=== PATIENT | male | born 1945 | race Caucasian/White ===

== ENCOUNTER 2019-02-19 12:11 | Inpatient (IN) | payer MEDICARE, SELFPAY ==
[2019-02-19] MEDS ORDERED: Metoclopramide 10 MG/2 ML SDV IVPUSH ONE (12:42)
[2019-02-19] MEDS ORDERED: Sodium Chloride 0.9% 1,000 ML IV SCH ×2 (12:45→15:20)
--- NOTE | 2019-02-19 12:47 | EDM.PDOC ---
ED HPI GENERAL MEDICAL PROBLEM - General Chief Complaint: Gastrointestinal Problem Stated Complaint: FLU SX Time Seen by Provider: 02/19/19 12:39 Source of Information: Reports: Patient, Family (son) History Limitations: Reports: No Limitations - History of Present Illness INITIAL COMMENTS - FREE TEXT/NARRATIVE: 73-year-old male presents to the ED with a ten-day history of fever chills and flulike symptoms. He states the last 3 days he's had intermittent nausea and vomiting and can not keep anything down. If he does eat to get cramps and loose watery yellow diarrhea. The diarrhea has been present for about 10 days. He denies being on any antibiotics in the last month. He's had chills but no receptive go put a sweater on. Air conditioners been off even in warm days over the last 10 days according to the son. He denies any genitourinary complaints. He still smokes a pack of cigarettes or more and always has a bit of a chronic cough. States cough is no worse than normal. Denies any pleuritic chest pain. He used to be diabetic but stopped medications about a year ago after sugars improved with weight loss. He estimates that he's lost about 10 pounds of weight in the last 10 days due to current illness. Concern that he may have picked up a bacterial infection from food causing his stomach and diarrhea problems. He has no past history of surgery. Has cataracts but can't have them out until he gets his abdominal aortic aneurysm repaired and his blood sugars under control. He hasn't checked his sugars at all. Currently not taking any medications. Onset: Unknown/Unsure (Hasn't been well for the last 10 days.) Onset Date: 02/09/19 Duration: Day(s):, Getting Worse Location: Reports: Abdomen (Intermittent nausea and vomiting of bilious material and loose yellow watery diarrhea stools if he eats.) Quality: Reports: Other Severity: Moderate (Fever and chills.) Improves with: Reports: None Worsens with: Reports: Eating Context: Denies: Activity, Exercise, Lifting, Sick Contact, Trauma, Other Associated Symptoms: Reports: Cough, cough w sputum, Fever/Chills, Headaches ( Initially had headaches at onset of illness but they come and go. Often wakes up with a headache in the morning and then gets better.), Loss of Appetite, Malaise, Nausea/Vomiting, Weakness (Getting worse over the last 3-4 days), Other (Lightheadedness and). Denies: Confusion (Chronic cough from smoking cigarettes.), Chest Pain, Diaphoresis, Rash, Seizure, Shortness of Breath, Syncope Treatments APPLICATION ADMINISTRATOR: Reports: Other (see below) (None.) - Related Data Allergies Allergy/AdvReac Type Severity Reaction Status Date / Time No Known Allergies Allergy Verified 02/19/19 12:21 Home Meds: Home Meds . [No Known Home Meds] 07/31/15 [History] Past Medical History - Past Health History Medical/Surgical History: Denies Medical/Surgical History HEENT History: Reports: Impaired Vision Cardiovascular History: Reports: Aneurysm (Has a known abdominal aortic aneurysm. Apparently to get this fixed. This suggests that it is over 5 cm in size.), Other (See Below) (Old notes suggest he has had a non-STEMI [place] in the past.) Respiratory History: Reports: COPD Endocrine/Metabolic History: Reports: Diabetes, Type II Social & Family History - Family History Family Medical History: Unobtainable - Tobacco Use Smoking Status *Q: Current Every Day Smoker Tobacco Use Within Last Twelve Months: Cigarettes (Usually a pack per day.) Years of Tobacco use: 55 - Living Situation & Occupation Living situation: Reports: (Self-employed) Occupation: Employed ED ROS GENERAL - Review of Systems Review Of Systems: See Below Constitutional: Reports: Fever, Chills, Malaise, Weakness, Fatigue, Decreased Appetite (10 pound weight loss in the last 10 days), Weight Loss. Denies: Night Sweats, Diaphoresis HEENT: Reports: Glasses, Hearing Loss (Mild), Other (Known cataract in the left eye.) Respiratory: Reports: Shortness of Breath, Wheezing, Cough, Sputum (Smoker's cough but no worse than normal). Denies: Pleuritic Chest Pain, Hemoptysis ( sputum. If he produces any) Cardiovascular: Reports: Blood Pressure Problem, Dyspnea on Exertion, Lightheadedness. Denies: No Symptoms, Chest Pain, Claudication, Edema, Orthopnea, Palpitations (Chronically) Endocrine: Reports: Fatigue, Other (Unsure what his glucose is doing as he hasn' t checked his sugars for a long time. Used to be a diabetic) GI/Abdominal: Reports: Abdominal Pain, Diarrhea (Mild epigastric abdominal pain. ), Decreased Appetite, Nausea, Vomiting. Denies: Hematemesis (Intractable nausea and vomiting of bilious emesis.), Hematochezia : Reports: Frequency, Other (Nocturia 2 or 3.) Musculoskeletal: Reports: Neck Pain, Shoulder Pain, Back Pain Skin: Reports: No Symptoms, Other (Denies any recent skin infections or ulcerations.) Neurological: Reports: No Symptoms Psychiatric: Reports: No Symptoms Hematologic/Lymphatic: Reports: No Symptoms Immunologic: Reports: No Symptoms ED EXAM, GI/ABD - Physical Exam Exam: See Below Exam Limited By: No Limitations General Appearance: Alert, WD/WN, No Apparent Distress, Anxious (19 to be urine unwilling to stay in the hospital), Other (Patient was definitely warm to palpation. Nurses recorded temperature 37 but he is much warmer than this.) Eyes: Bilateral: Normal Appearance (No scleral icterus) Throat/Mouth: Normal Oropharynx (Red oropharynx from cigarette smoking), Other ( Tongue is very dry and coated.). No: Normal Teeth, Normal Gums Head: Atraumatic, Normocephalic ( or exudate) Neck: Limited Range of Motion, Tender Lateral (Decreased lateral rotation and flexion due to arthritic changes). No: Full Range of Motion, Carotid Bruit Respiratory/Chest: No Accessory Muscle Use, Respiratory Distress (Tachypnea at rest 32/m with sats of 98% on room air.Revisit due to fever.), Decreased Breath Sounds (Decreased breath sounds lower 25% lung andrews bilaterally.), Wheezing. No: Crackles, Rales, Rhonchi (Occasional expiratory wheeze) Cardiovascular: Regular Rate, Rhythm, No Edema, No Gallop, No Murmur, No Rub. No: Normal Peripheral Pulses GI/Abdominal Exam: Normal Bowel Sounds, Soft, Non-Tender, No Organomegaly, No Mass, Pelvis Stable, Other (Palpable abdominal abdominal aortic aneurysm). 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 No: Normal Range of Motion Neurological: Alert, Oriented, CN II-XII Intact, Normal Cognition Psychiatric: Normal Mood, Anxious, Other (Fearful of having to stay in the hospital.) Skin Exam: Warm, Dry, Intact, Normal Color, No Rash, Other (I could not identify any integument source for bacteremia.) EKG INTERPRETATION EKG Date: 02/19/19 Time: 13:06 Rhythm: NSR Rate (Beats/Min): 81 [place]: LAD-Left [place] Deviation (Mild left axis deviation -5.) P-Wave: Present (Borderline first-degree AV block) QRS: Other (Decreased voltage limb leads compose COPD.) ST-T: Normal QT: Normal EKG Interpretation Comments: Borderline ECG Course - Vital Signs Last Recorded V/S: Last Vital Signs Temp 37.8 C 02/19/19 14:50 Pulse 72 02/19/19 14:50 Resp 34 H 02/19/19 14:50 BP 115/66 02/19/19 14:50 Pulse Ox 94 L 02/19/19 14:50 Orthostatic Blood Pressure [ 102/66 Standing] Orthostatic Blood Pressure [ 124/73 Sitting] Orthostatic Blood Pressure [ 134/103 Supine] - Orders/Labs/Meds Orders: Active Orders 24 hr Category Date Time Status Blood Glucose Check, Bedside [RC] ONETIME Care 02/19/19 12:40 Active Blood Glucose Check, Bedside [RC] ONETIME Care 02/19/19 17:04 Active EKG Documentation Completion [RC] STAT Care 02/19/19 12:40 Active Chest 1V Frontal [CR] Stat Exams 02/19/19 12:40 Taken CULTURE BLOOD [BC] Stat Lab 02/19/19 12:54 Received CULTURE BLOOD [BC] Stat Lab 02/19/19 13:04 Received CULTURE STOOL + SHIGATOX [RM] Stat Lab 02/19/19 12:42 Ordered WBC, STOOL [OP] Stat Lab 02/19/19 12:42 Ordered Acetaminophen [Tylenol] Med 02/19/19 13:32 Active 650 mg PO Q4H PRN Sodium Chloride 0.9% [Normal Saline] 1,000 ml Med 02/19/19 12:45 Active IV ASDIRECTED Sodium Chloride 0.9% [Normal Saline] 1,000 ml Med 02/19/19 15:20 Active IV ASDIRECTED Blood Culture x2 Reflex Set [OM.PC] Stat Oth 02/19/19 12:40 Ordered Medication Orders Acetaminophen (Tylenol) 650 mg PO Q4H PRN PRN Reason: Pain Last Admin: 02/19/19 13:51 Dose: 650 mg Sodium Chloride (Normal Saline) 1,000 mls @ 500 mls/hr IV ASDIRECTED DESTINY Last Admin: 02/19/19 13:00 Dose: 500 mls/hr Sodium Chloride (Normal Saline) 1,000 mls @ 500 mls/hr IV ASDIRECTED DESTINY Last Admin: 02/19/19 15:20 Dose: 500 mls/hr Labs: Laboratory Tests 02/19/19 02/19/19 02/19/19 Range/Units 12:54 12:54 12:54 WBC 9.53 H (4.23-9.07) K/mm3 RBC 5.10 (4.63-6.08) M/mm3 Hgb 14.6 D (13.7-17.5) gm/L Hct 44.4 (40.1-51.0) % MCV 87.1 (79.0-92.2) fl MCH 28.6 (25.7-32.2) pg MCHC 32.9 (32.2-35.5) g/dl RDW Std Deviation 44.9 H (35.1-43.9) fL Plt Count 143 L D (163-337) K/mm3 MPV 12.3 (9.4-12.3) fl Neutrophils % (Manual) 84 H (40-60) % Band Neutrophils % 0 (0-10) % Lymphocytes % (Manual) 13 L (20-40) % Atypical Lymphs % 0 % Monocytes % (Manual) 3 (2-10) % Eosinophils % (Manual) 0 L (0.8-7.0) % Basophils % (Manual) 0 L (0.2-1.2) Platelet Estimate Adequate RBC Morph Comment Normal ESR 27 H (0-15) mm/hr PT 11.4 (9.7-12.0) SECONDS INR 1.05 Sodium (136-145) mEq/L Potassium (3.5-5.1) mEq/L Chloride (98-107) mEq/L Carbon Dioxide (21-32) mEq/L Anion Gap (5-15) BUN (7-18) mg/dL Creatinine (0.7-1.3) mg/dL Est Cr Clr Drug Dosing mL/min Estimated GFR (MDRD) (>60) mL/min BUN/Creatinine Ratio (14-18) Glucose (83-115) mg/dL POC Glucose (83-110) mg/dL Hemoglobin A1c (4.50-6.20) % Serum Osmolality (280-300) mosm/kg Lactic Acid (0.4-2.0) mmol/L Calcium (8.5-10.1) mg/dL Magnesium (1.8-2.4) mg/dl Total Bilirubin (0.2-1.0) mg/dL AST (15-37) U/L ALT (16-63) U/L Alkaline Phosphatase (46-116) U/L Troponin I (0.00-0.056) ng/mL C-Reactive Protein (<1.0) mg/dL NT-Pro-B Natriuret Pep (0-125) pg/mL Total Protein (6.4-8.2) g/dl Albumin (3.4-5.0) g/dl Globulin gm/dL Albumin/Globulin Ratio (1-2) Lipase (73-393) U/L Urine Color (Yellow) Urine Appearance (Clear) Urine pH (5.0-8.0) Ur Specific [place] (1.005-1.030) Urine Protein (Negative) Urine Glucose (UA) (Negative) Urine Ketones (Negative) Urine Occult Blood (Negative) Urine Nitrite (Negative) Urine Bilirubin (Negative) Urine Urobilinogen (0.2-1.0) Ur Leukocyte Esterase (Negative) Urine RBC (0-5) /hpf Urine WBC (0-5) /hpf Ur Squamous Epith Cells (0-5) /hpf Amorphous Sediment (NOT SEEN) /hpf Urine Bacteria (FEW) /hpf Hyaline Casts (0-5) /lpf Urine Mucus (FEW) /hpf Ketones (0.0-0.3) mM 02/19/19 02/19/19 02/19/19 Range/Units 12:54 12:54 12:54 WBC (4.23-9.07) K/mm3 RBC (4.63-6.08) M/mm3 Hgb (13.7-17.5) gm/L Hct (40.1-51.0) % MCV (79.0-92.2) fl MCH (25.7-32.2) pg MCHC (32.2-35.5) g/dl RDW Std Deviation (35.1-43.9) fL Plt Count (163-337) K/mm3 MPV (9.4-12.3) fl Neutrophils % (Manual) (40-60) % Band Neutrophils % (0-10) % Lymphocytes % (Manual) (20-40) % Atypical Lymphs % % Monocytes % (Manual) (2-10) % Eosinophils % (Manual) (0.8-7.0) % Basophils % (Manual) (0.2-1.2) Platelet Estimate RBC Morph Comment ESR (0-15) mm/hr PT (9.7-12.0) SECONDS INR Sodium 140 (136-145) mEq/L Potassium 4.3 (3.5-5.1) mEq/L Chloride 104 (98-107) mEq/L Carbon Dioxide 25 (21-32) mEq/L Anion Gap 15.3 H (5-15) BUN 23 H (7-18) mg/dL Creatinine 1.6 H (0.7-1.3) mg/dL Est Cr Clr Drug Dosing 45.13 mL/min Estimated GFR (MDRD) 43 (>60) mL/min BUN/Creatinine Ratio 14.4 (14-18) Glucose 314 H (83-115) mg/dL POC Glucose (83-110) mg/dL Hemoglobin A1c (4.50-6.20) % Serum Osmolality 308 H (280-300) mosm/kg Lactic Acid 2.5 H (0.4-2.0) mmol/L Calcium 9.0 (8.5-10.1) mg/dL Magnesium 1.9 (1.8-2.4) mg/dl Total Bilirubin 0.9 (0.2-1.0) mg/dL AST 15 (15-37) U/L ALT 28 (16-63) U/L Alkaline Phosphatase 57 (46-116) U/L Troponin I < 0.017 (0.00-0.056) ng/mL C-Reactive Protein 0.3 (<1.0) mg/dL NT-Pro-B Natriuret Pep 219 H (0-125) pg/mL Total Protein 7.5 (6.4-8.2) g/dl Albumin 3.3 L (3.4-5.0) g/dl Globulin 4.2 gm/dL Albumin/Globulin Ratio 0.8 L (1-2) Lipase 95 (73-393) U/L Urine Color (Yellow) Urine Appearance (Clear) Urine pH (5.0-8.0) Ur Specific [place] (1.005-1.030) Urine Protein (Negative) Urine Glucose (UA) (Negative) Urine Ketones (Negative) Urine Occult Blood (Negative) Urine Nitrite (Negative) Urine Bilirubin (Negative) Urine Urobilinogen (0.2-1.0) Ur Leukocyte Esterase (Negative) Urine RBC (0-5) /hpf Urine WBC (0-5) /hpf Ur Squamous Epith Cells (0-5) /hpf Amorphous Sediment (NOT SEEN) /hpf Urine Bacteria (FEW) /hpf Hyaline Casts (0-5) /lpf Urine Mucus (FEW) /hpf Ketones (0.0-0.3) mM 02/19/19 02/19/19 02/19/19 Range/Units 12:54 12:54 12:57 WBC (4.23-9.07) K/mm3 RBC (4.63-6.08) M/mm3 Hgb (13.7-17.5) gm/L Hct (40.1-51.0) % MCV (79.0-92.2) fl MCH (25.7-32.2) pg MCHC (32.2-35.5) g/dl RDW Std Deviation (35.1-43.9) fL Plt Count (163-337) K/mm3 MPV (9.4-12.3) fl Neutrophils % (Manual) (40-60) % Band Neutrophils % (0-10) % Lymphocytes % (Manual) (20-40) % Atypical Lymphs % % Monocytes % (Manual) (2-10) % Eosinophils % (Manual) (0.8-7.0) % Basophils % (Manual) (0.2-1.2) Platelet Estimate RBC Morph Comment ESR (0-15) mm/hr PT (9.7-12.0) SECONDS INR Sodium (136-145) mEq/L Potassium (3.5-5.1) mEq/L Chloride (98-107) mEq/L Carbon Dioxide (21-32) mEq/L Anion Gap (5-15) BUN (7-18) mg/dL Creatinine (0.7-1.3) mg/dL Est Cr Clr Drug Dosing mL/min Estimated GFR (MDRD) (>60) mL/min BUN/Creatinine Ratio (14-18) Glucose (83-115) mg/dL POC Glucose 268 H (83-110) mg/dL Hemoglobin A1c 8.70 H (4.50-6.20) % Serum Osmolality (280-300) mosm/kg Lactic Acid (0.4-2.0) mmol/L Calcium (8.5-10.1) mg/dL Magnesium (1.8-2.4) mg/dl Total Bilirubin (0.2-1.0) mg/dL AST (15-37) U/L ALT (16-63) U/L Alkaline Phosphatase (46-116) U/L Troponin I (0.00-0.056) ng/mL C-Reactive Protein (<1.0) mg/dL NT-Pro-B Natriuret Pep (0-125) pg/mL Total Protein (6.4-8.2) g/dl Albumin (3.4-5.0) g/dl Globulin gm/dL Albumin/Globulin Ratio (1-2) Lipase (73-393) U/L Urine Color (Yellow) Urine Appearance (Clear) Urine pH (5.0-8.0) Ur Specific [place] (1.005-1.030) Urine Protein (Negative) Urine Glucose (UA) (Negative) Urine Ketones (Negative) Urine Occult Blood (Negative) Urine Nitrite (Negative) Urine Bilirubin (Negative) Urine Urobilinogen (0.2-1.0) Ur Leukocyte Esterase (Negative) Urine RBC (0-5) /hpf Urine WBC (0-5) /hpf Ur Squamous Epith Cells (0-5) /hpf Amorphous Sediment (NOT SEEN) /hpf Urine Bacteria (FEW) /hpf Hyaline Casts (0-5) /lpf Urine Mucus (FEW) /hpf Ketones 0.2 (0.0-0.3) mM /24/19 Range/Units 14:55 WBC (4.23-9.07) K/mm3 RBC (4.63-6.08) M/mm3 Hgb (13.7-17.5) gm/L Hct (40.1-51.0) % MCV (79.0-92.2) fl MCH (25.7-32.2) pg MCHC (32.2-35.5) g/dl RDW Std Deviation (35.1-43.9) fL Plt Count (163-337) K/mm3 MPV (9.4-12.3) fl Neutrophils % (Manual) (40-60) % Band Neutrophils % (0-10) % Lymphocytes % (Manual) (20-40) % Atypical Lymphs % % Monocytes % (Manual) (2-10) % Eosinophils % (Manual) (0.8-7.0) % Basophils % (Manual) (0.2-1.2) Platelet Estimate RBC Morph Comment ESR (0-15) mm/hr PT (9.7-12.0) SECONDS INR Sodium (136-145) mEq/L Potassium (3.5-5.1) mEq/L Chloride (98-107) mEq/L Carbon Dioxide (21-32) mEq/L Anion Gap (5-15) BUN (7-18) mg/dL Creatinine (0.7-1.3) mg/dL Est Cr Clr Drug Dosing mL/min Estimated GFR (MDRD) (>60) mL/min BUN/Creatinine Ratio (14-18) Glucose (83-115) mg/dL POC Glucose (83-110) mg/dL Hemoglobin A1c (4.50-6.20) % Serum Osmolality (280-300) mosm/kg Lactic Acid (0.4-2.0) mmol/L Calcium (8.5-10.1) mg/dL Magnesium (1.8-2.4) mg/dl Total Bilirubin (0.2-1.0) mg/dL AST (15-37) U/L ALT (16-63) U/L Alkaline Phosphatase (46-116) U/L Troponin I (0.00-0.056) ng/mL C-Reactive Protein (<1.0) mg/dL NT-Pro-B Natriuret Pep (0-125) pg/mL Total Protein (6.4-8.2) g/dl Albumin (3.4-5.0) g/dl Globulin gm/dL Albumin/Globulin Ratio (1-2) Lipase (73-393) U/L Urine Color Dark yellow (Yellow) Urine Appearance Clear (Clear) Urine pH 5.5 (5.0-8.0) Ur Specific [place] > or = 1.030 (1.005-1.030) Urine Protein 1+ H (Negative) Urine Glucose (UA) 1+ H (Negative) Urine Ketones Trace H (Negative) Urine Occult Blood Negative (Negative) Urine Nitrite Negative (Negative) Urine Bilirubin Negative (Negative) Urine Urobilinogen 0.2 (0.2-1.0) Ur Leukocyte Esterase Negative (Negative) Urine RBC 0-5 (0-5) /hpf Urine WBC 0-5 (0-5) /hpf Ur Squamous Epith Cells 0-5 (0-5) /hpf Amorphous Sediment Few H (NOT SEEN) /hpf Urine Bacteria Few (FEW) /hpf Hyaline Casts 0-5 (0-5) /lpf Urine Mucus Few (FEW) /hpf Ketones (0.0-0.3) mM Meds: Medications Generic Name Dose Route Start Last Admin Trade Name Freq PRN Reason Stop Dose Admin Acetaminophen 650 mg 02/19/19 13:32 02/19/19 13:51 Tylenol PO 650 mg Q4H PRN Administration Pain Sodium Chloride 1,000 mls @ 500 mls/hr 02/19/19 12:45 02/19/19 13:00 Normal Saline IV 500 mls/hr ASDIRECTED DESTINY Administration Sodium Chloride 1,000 mls @ 500 mls/hr 02/19/19 15:20 02/19/19 15:20 Normal Saline IV 500 mls/hr ASDIRECTED DESTINY Administration Discontinued Medications Generic Name Dose Route Start Last Admin Trade Name Freq PRN Reason Stop Dose Admin Levofloxacin/Dextrose 750 mg/ 150 mls @ 100 mls/hr 02/19/19 14:18 02/19/19 15 :00 Premix IV 02/19/19 15:47 100 mls/hr ONETIME ONE Administration Metoclopramide HCl 10 mg 02/19/19 12:42 02/19/19 12:58 Reglan IVPUSH 02/19/19 12:43 10 mg ONETIME ONE Administration - Radiology Interpretation Free Text/Narrative:: 73-year-old male presents to the ED with a 10 day history of illness. History suggests intermittent nausea vomiting and diarrhea on average 3-4 times daily for the last 3 days. No he met emesis no hematochezia. Occasional abdominal cramping pain. The problems he can keep anything down for the last 3 days. He is dizzy and weak. Clinically he is volume depleted. Past history suggests he is a diabetic but has been off all medications for over a year and he has not been checking his blood sugars. He documents a 10 pound weight loss over the last 10 days. 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 He is a chronic smoker and has COPD. Denies any worsening cough than normal. Denies any genitourinary complaints. Patient will have a septic workup completed. I have some concerns that he may well have type 2 diabetes out of control. His weight loss and perhaps nausea and vomiting if he's acidotic. I've asked for stool sample if he produces one is he's having chronic diarrhea for 10 days. IV will be normal saline at 500 mils per hour. Given Reglan 10 mg IV for nausea relief. - Re-Assessments/Exams Free Text/Narrative Re-Assessment/Exam: 02/19/19 13:17 ECG shows signs of emphysema changes with decreased voltage in the limb leads but no signs of acute ischemia or previous infarct. Chest x-ray done portably reveals hyperinflated lung andrews compatible with emphysematous change. Cardiac silhouette is within normal limits. There is no evidence of pneumonia or pleural effusion. Nurse reports that bedside blood sugar was 268. 02/19/19 13:42 White count is normal at 9.53. Differential is pending. Hemoglobin is 14.6 with hematocrit of 44.4. Platelet count 143,000 a bit on the low side. Sodium 140 with potassium of 4.3. Chloride 104 the bicarbonate 25. Anion gap is minimally elevated at 15.3. BUN is 23 with creatinine of 1.6. GFR is 43 i.e. stage III chronic kidney disease. Glucose is 314 in the lab was 268 at the bedside. Hemoglobin A1c is 8.70. Calcium is 9.0. Magnesium is 1.9. Liver function is normal. Troponin I is less than 0.017. C-reactive protein is 0.3. Total protein 7.5 albumin is 3.3. Lipase is 95. 02/19/19 13:53 Serum ketones came back at 0.2 normal.Lactic acid is elevated at 2.5. Serum osmolality is 308. BNP is 219. 02/19/19 14:03 a she is currently experiencing some [place] and/chills. He appears peripherally vasoconstricted. Temperature currently is 101.5 on repeat evaluation. 02/19/19 14:21 patient has not voided yet. He is very warm to palpation and still experiencing some rigors. I'm going to place him on Levaquin 750 mg IV at this time but source of infection is unclear. I'm awaiting a urinalysis. If this is negative then he will need CT of the abdomen and pelvis with oral contrast. 02/19/19 15:36 urinalysis has returned and is completely normal. We'll proceed with CT of the abdomen without any contrast due to impaired renal function uncontrolled type 2 diabetes and nausea and vomiting 02/19/19 17:05 CT of the abdomen and pelvis has been completed without contrast. Patient the lungs appear to be clear. He has a small hiatal hernia. The liver appears homogeneous without any intraductal dilatation. Gallbladder does suggest a bit of layering of stones in the wall without any inflammatory changes or pericholecystic fluid to indicate a source of infection. This is normal. Spleen is normal both kidneys are atrophic with dilated renal pelvis CTs but normal ureters. Adrenal glands do not show any masses. He has diffuse fluid-filled small bowel without any signs of obstruction. Several diverticuli of the descending colon but no signs of active diverticulitis. Prostate gland appears to be within normal limits and there is no free fluid in the pelvis. 4 no intra-abdominal source for infection has been identified. Concern is for the chronic diarrhea. This suggests a possible bacterial etiology such as Salmonella or Shigella. He is potentially immunocompromised as he has not been treating his diabetes for the last year. He is not been able to produce a stool. He has agreed to coming to the hospital until we can identify the source of his bacteremia. Blood cultures of course been done. We need a stool for culture at least one if not 2. I will speak with Dr. Jj -- closer on hospitalist with a view to admission to the hospital. 02/19/19 17:[address]. Jj and he will accept care of this patient to the [facility] surgery floor on telemetry. Ordered a spot blood sugar before giving this patient some supper. If he needs some insulin before eating. 02/19/19 17:32 CT scan of the abdomen and pelvis has been completed and now has been over read by Dr. Quigley. He reports visualized lung bases show emphysematous change without anything acute. Noncontrast appearance of the liver shows no focal abnormality. Gallbladder contains no calcified gallstones although minimal area of increased density is noted within the gallbladder lumen difficult to exclude small noncalcified gallstones. Spleen appears to be within normal limits. Adrenal glands show no nodules. Pancreas is within normal limits. Parapelvic cysts are noted within both kidneys which are both parapelvic and cortical in location largest cyst within the left kidney measures 5 cm in size. No ureteral dilatation or ureteral stone is identified. Mild distal abdominal aortic aneurysm is seen with maximum AP dimension of 5.5 cm. No abnormal fluid collections are seen around the abdominal aorta. 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 Atherosclerotic ulcer case is seen within the aorta and iliac vessels. No retroperitoneal adenopathy or mesenteric abdomen maladies are seen. No pelvic mass or adenopathy noted. No free fluid or inflammatory changes seen. The appendix is not definitely appreciated. No inflammatory changes seen around the right lower quadrant. Bone window settings were reviewed which shows degenerative changes scattered throughout the spine which is most prominent within the lower lung but her apophyseal joints. No osseous abnormalities are appreciated. Therefore he did not identify anything that I did not visualize. Related no source of intra-abdominal infection to cause bacteremia. 02/19/19 18:00: Blood sugar prior to eating supper was 185 and therefore no insulin was given. I will place the patient on NicoDerm patch as he is a chronic daily smoker pack to pack and a half per day. Departure - Departure Time of Disposition: 18:24 Disposition: Admitted As Inpatient 66 Condition: Fair Clinical Impression: Fever of undetermined origin, Bacteremia, Lactic acidosis, Chronic renal insufficiency, stage III (moderate) Uncontrolled type 2 diabetes mellitus Qualifiers: Glycemic state: with hyperglycemia Qualified Code(s): E11.65 - Type 2 diabetes mellitus with hyperglycemia COPD (chronic obstructive pulmonary disease) Qualifiers: COPD type: emphysema Emphysema type: panlobular Qualified Code(s): J43.1 - Panlobular emphysema Intractable nausea and vomiting Qualifiers: Vomiting type: unspecified Qualified Code(s): R11.2 - Nausea with vomiting, unspecified Diarrhea Qualifiers: Diarrhea type: presumed infectious Qualified Code(s): R19.7 - Diarrhea, unspecified - Discharge Information *PRESCRIPTION DRUG MONITORING PROGRAM REVIEWED*: Not Applicable *COPY OF PRESCRIPTION DRUG MONITORING REPORT IN PATIENT SOL: Not Applicable - My Orders Last 24 Hours: My Active Orders 02/19/19 12:40 Blood Glucose Check, Bedside [RC] ONETIME EKG Documentation Completion [RC] STAT Chest 1V Frontal [CR] Stat Blood Culture x2 Reflex Set [OM.PC] Stat 02/19/19 12:42 CULTURE STOOL + SHIGATOX [RM] Stat WBC, STOOL [OP] Stat 02/19/19 12:45 Sodium Chloride 0.9% [Normal Saline] 1,000 ml IV ASDIRECTED 02/19/19 12:54 CULTURE BLOOD [BC] Stat 02/19/19 13:04 CULTURE BLOOD [BC] Stat 02/19/19 13:32 Acetaminophen [Tylenol] 650 mg PO Q4H PRN 02/19/19 15:20 Sodium Chloride 0.9% [Normal Saline] 1,000 ml IV ASDIRECTED 02/19/19 17:04 Blood Glucose Check, Bedside [RC] ONETIME - Assessment/Plan Last 24 Hours: My Active Orders 02/19/19 12:40 Blood Glucose Check, Bedside [RC] ONETIME EKG Documentation Completion [RC] STAT Chest 1V Frontal [CR] Stat Blood Culture x2 Reflex Set [OM.PC] Stat 02/19/19 12:42 CULTURE STOOL + SHIGATOX [RM] Stat WBC, STOOL [OP] Stat 02/19/19 12:45 Sodium Chloride 0.9% [Normal Saline] 1,000 ml IV ASDIRECTED 02/19/19 12:54 CULTURE BLOOD [BC] Stat 02/19/19 13:04 CULTURE BLOOD [BC] Stat 02/19/19 13:32 Acetaminophen [Tylenol] 650 mg PO Q4H PRN 02/19/19 15:20 Sodium Chloride 0.9% [Normal Saline] 1,000 ml IV ASDIRECTED 02/19/19 17:04 Blood Glucose Check, Bedside [RC] ONETIME
[2019-02-19 13:32] LABS: HEMOGLOBIN A1C 8.7 % (4.50-6.20)
[2019-02-19] MEDS: Acetaminophen 325 MG Tab PO PRN (13:51)
[2019-02-19] MEDS ORDERED: Levofloxacin/Dextrose 5%-Water 750 MG in Premix Bag 1 BAG IV ONE (14:18)
--- NOTE | 2019-02-19 17:22 | CT ---
Addendum: Voice recognition error is noted within the last paragraph within the body of the report. The word lung appears which should be deleted. Other portions of the dictation remain the same. --- Addendum1 above dictated on [02/27/2019 12:18] by [Mingo Quigley Hilton J.] --- --- Addendum1 above signed on [02/27/2019 12:20] by [Mingo Quigley Hilton J.] --- --- Original report below dictated on [02/19/2019 17:17] by [Mingo Quigley Hilton J.] --- --- Original report below signed on [02/19/2019 17:17] by [Mingo Quigley Hilton J.] --- CT abdomen and pelvis Technique: Multiple axial sections were obtained from above the dome of the diaphragm inferiorly through the pubic symphysis. Intravenous and oral contrast was not utilized. Comparison: No prior abdominal imaging. Findings: Visualized lung bases shows emphysematous change without anything acute. Noncontrast appearance of the liver shows no focal abnormality. Gallbladder contains no calcified gallstones although minimal area of increased density is noted within gallbladder lumen and difficult to exclude small noncalcified gallstones. Spleen appears within normal limits. Adrenal glands show no nodule. Pancreas is within normal limits. Cysts are noted within both kidneys which are both parapelvic and cortical in location. Largest cyst within the left kidney measuring 5.0 cm in size. No ureteral dilatation or ureteral stone is seen. Mid to distal abdominal aortic aneurysm is seen with maximum AP dimension of 5.5 cm. No abnormal fluid collections are are seen around the abdominal aorta. 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 Atherosclerotic calcification is seen within the aorta and iliac vessels. No retroperitoneal adenopathy or mesenteric abnormalities are seen. No pelvic mass or adenopathy is noted. No free fluid or inflammatory change is seen. Appendix is not definitely appreciated. No inflammatory change is seen around the right lower quadrant. Bone window settings were reviewed which shows mild degenerative change scattered within the spine which is most prominent within the lower lung lumbar apophyseal joints. No acute osseous abnormality is identified. Impression: 1. Aneurysm of the abdominal aorta and left common iliac artery as described above. 2. Cysts within both kidneys. 3. Questionable nonobstructing gallstones within the gallbladder. 4. Other findings which are believed to be incidental as noted above. No acute abnormality is appreciated. Diagnostic code #3 --- Addendum1 signed ---
[2019-02-19] MEDS ORDERED: Nicotine 21 MG/24 Hr Patch TRDERM ONE (18:23)
--- NOTE | 2019-02-19 19:59 | PCM.HP.2 ---
H&P History of Present Illness - General Date of Service: 02/19/19 Admit Problem/Dx: Admission Diagnosis/Problem Admission Diagnosis/Problem Bacteremia Source of Information: Patient, Family, Old Records, Provider, RN Notes Reviewed History Limitations: Reports: No Limitations - History of Present Illness Initial Comments - Free Text/Narative: This is a 73 not pleasant elderly white male with past medical hx/o Impaired Vision, COPD, DM2-Exercise Controlled, Abdominal Aneurysm, and Chronic Alcohol Use who comes in for 10 day hx/o fever associated with watery diarrhea, nausea and vomiting. He denies any recent travel outside the [facility], no unusual diet or drinks and no recent antibiotic use. He admits to drinking alcohol routinely with drafts and crown coke on Tuesdays and Fridays. He also smokes a pack a day. Additionally he also reports having productive cough, chills, headaches, reduced appetite, malaise and generalized weakness. His initial work up in ED shows a fairly unremarkable CBC. His Chemistry is significant for AG of 15.3, BUN of 23, Cr of 1.6, BS of 314, A1C of 8.70, LA of 2.5, ProBNP of 219, and Albumin of 3.3. His UA and UDS are negative. His Ketones level is 0.02. His CXR shows no acute abnormal findings. Patient had a temperature as high as 38.4 C with RR in the 20s-30s while in ED. He comes in primarily for for further work up of SIRS/Fever of Unknown Origin. - Related Data Allergies/Adverse Reactions: Allergies Allergy/AdvReac Type Severity Reaction Status Date / Time No Known Allergies Allergy Verified 02/19/19 12:21 Home Medications: Home Meds . [No Known Home Meds] 07/31/15 [History] Past Medical History - Past Health History Medical/Surgical History: Denies Medical/Surgical History HEENT History: Reports: Impaired Vision Other HEENT History: wears eyeglasses Cardiovascular History: Reports: Aneurysm (Has a known abdominal aortic aneurysm. Apparently to get this fixed. 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 Respiratory History: Reports: COPD Gastrointestinal History: Reports: GERD Other Gastrointestinal History: states has reflux after drinking alcohol. Musculoskeletal History: Reports: Fracture Psychiatric History: Reports: Addiction, Other (See Below) Other Psychiatric History: tobacco Endocrine/Metabolic History: Reports: Diabetes, Type II - Infectious Disease History Infectious Disease History: Reports: Chicken Pox, Measles, Mumps Social & Family History - Family History Family Medical History: Unobtainable - Tobacco Use Smoking Status *Q: Current Every Day Smoker Years of Tobacco use: 55 Packs/Tins Daily: 1 - Caffeine Use Caffeine Use: Reports: Coffee - Alcohol Use Number of Drinks Per Day: 3 - Recreational Drug Use Recreational Drug Use: No - Living Situation & Occupation Living situation: Reports: (Self-employed) Occupation: Employed H&P Review of Systems - Review of Systems: Review Of Systems: ROS reveals no pertinent complaints other than HPI. Exam - Exam Exam: See Below - Vital Signs Vital Signs: Last Vital Signs Temp 36.7 C 02/19/19 18:35 Pulse 64 02/19/19 18:35 Resp 22 H 02/19/19 18:35 BP 116/62 02/19/19 16:15 Pulse Ox 98 02/19/19 18:35 Orthostatic Blood Pressure [ 102/66 Standing] Orthostatic Blood Pressure [ 124/73 Sitting] Orthostatic Blood Pressure [ 134/103 Supine] Weight: 81.647 kg - Exam General: Alert, Oriented, Cooperative HEENT: Conjunctiva Clear, EACs Clear, EOMI, Hearing Intact, Mucosa Moist & [place] , Nares Patent, Normal Nasal Septum, Posterior Pharynx Clear, Pupils Equal, Pupils Reactive Neck: Supple, Trachea Midline Lungs: Clear to Auscultation, Normal Respiratory Effort Cardiovascular: Regular Rate, Regular Rhythm GI/Abdominal Exam: Normal Bowel Sounds, Soft, Non-Tender, No Organomegaly, No Distention, No Abnormal Bruit, No Mass (Male) Exam: Deferred Rectal (Males) Exam: Deferred Back Exam: Normal Inspection, Decreased Range of Motion Extremities: Normal Inspection, Normal Range of Motion, Non-Tender, No Pedal Edema, Normal Capillary Refill Peripheral Pulses: 2+: Posterior Tibial (L), Posterior Tibial (R), Dorsalis Pedis (L), Dorsalis Pedis (R) Skin: Warm, Dry, Intact Neuro Extensive - Mental Status: Oriented x3, Normal Cognition, Memory Intact Neuro Extensive - Motor, Sensory, Reflexes: CN II-XII Intact, Normal Gait Psychiatric: Alert, Normal Affect, Normal Mood - Patient Data Lab Results Last 24 hrs: Laboratory Results - last 24 hr 02/19/19 02/19/19 02/19/19 Range/Units 12:54 12:54 12:54 WBC 9.53 H (4.23-9.07) K/mm3 RBC 5.10 (4.63-6.08) M/mm3 Hgb 14.6 D (13.7-17.5) gm/L Hct 44.4 (40.1-51.0) % MCV 87.1 (79.0-92.2) fl MCH 28.6 (25.7-32.2) pg MCHC 32.9 (32.2-35.5) g/dl RDW Std Deviation 44.9 H (35.1-43.9) fL Plt Count 143 L D (163-337) K/mm3 MPV 12.3 (9.4-12.3) fl Neutrophils % (Manual) 84 H (40-60) % Band Neutrophils % 0 (0-10) % Lymphocytes % (Manual) 13 L (20-40) % Atypical Lymphs % 0 % Monocytes % (Manual) 3 (2-10) % Eosinophils % (Manual) 0 L (0.8-7.0) % Basophils % (Manual) 0 L (0.2-1.2) Platelet Estimate Adequate RBC Morph Comment Normal ESR 27 H (0-15) mm/hr PT 11.4 (9.7-12.0) SECONDS INR 1.05 Sodium (136-145) mEq/L Potassium (3.5-5.1) mEq/L Chloride (98-107) mEq/L Carbon Dioxide (21-32) mEq/L Anion Gap (5-15) BUN (7-18) mg/dL Creatinine (0.7-1.3) mg/dL Est Cr Clr Drug Dosing mL/min Estimated GFR (MDRD) (>60) mL/min BUN/Creatinine Ratio (14-18) Glucose (83-115) mg/dL POC Glucose (83-110) mg/dL Hemoglobin A1c (4.50-6.20) % Serum Osmolality (280-300) mosm/kg Lactic Acid (0.4-2.0) mmol/L Calcium (8.5-10.1) mg/dL Magnesium (1.8-2.4) mg/dl Total Bilirubin (0.2-1.0) mg/dL AST (15-37) U/L ALT (16-63) U/L Alkaline Phosphatase (46-116) U/L Troponin I (0.00-0.056) ng/mL C-Reactive Protein (<1.0) mg/dL NT-Pro-B Natriuret Pep (0-125) pg/mL Total Protein (6.4-8.2) g/dl Albumin (3.4-5.0) g/dl Globulin gm/dL Albumin/Globulin Ratio (1-2) Lipase (73-393) U/L Urine Color (Yellow) Urine Appearance (Clear) Urine pH (5.0-8.0) Ur Specific [place] (1.005-1.030) Urine Protein (Negative) Urine Glucose (UA) (Negative) Urine Ketones (Negative) Urine Occult Blood (Negative) Urine Nitrite (Negative) Urine Bilirubin (Negative) Urine Urobilinogen (0.2-1.0) Ur Leukocyte Esterase (Negative) Urine RBC (0-5) /hpf Urine WBC (0-5) /hpf Ur Squamous Epith Cells (0-5) /hpf Amorphous Sediment (NOT SEEN) /hpf Urine Bacteria (FEW) /hpf Hyaline Casts (0-5) /lpf Urine Mucus (FEW) /hpf Ketones (0.0-0.3) mM 02/19/19 02/19/19 02/19/19 Range/Units 12:54 12:54 12:54 WBC (4.23-9.07) K/mm3 RBC (4.63-6.08) M/mm3 Hgb (13.7-17.5) gm/L Hct (40.1-51.0) % MCV (79.0-92.2) fl MCH (25.7-32.2) pg MCHC (32.2-35.5) g/dl RDW Std Deviation (35.1-43.9) fL Plt Count (163-337) K/mm3 MPV (9.4-12.3) fl Neutrophils % (Manual) (40-60) % Band Neutrophils % (0-10) % Lymphocytes % (Manual) (20-40) % Atypical Lymphs % % Monocytes % (Manual) (2-10) % Eosinophils % (Manual) (0.8-7.0) % Basophils % (Manual) (0.2-1.2) Platelet Estimate RBC Morph Comment ESR (0-15) mm/hr PT (9.7-12.0) SECONDS INR Sodium 140 (136-145) mEq/L Potassium 4.3 (3.5-5.1) mEq/L Chloride 104 (98-107) mEq/L Carbon Dioxide 25 (21-32) mEq/L Anion Gap 15.3 H (5-15) BUN 23 H (7-18) mg/dL Creatinine 1.6 H (0.7-1.3) mg/dL Est Cr Clr Drug Dosing 45.13 mL/min Estimated GFR (MDRD) 43 (>60) mL/min BUN/Creatinine Ratio 14.4 (14-18) Glucose 314 H (83-115) mg/dL POC Glucose (83-110) mg/dL Hemoglobin A1c (4.50-6.20) % Serum Osmolality 308 H (280-300) mosm/kg Lactic Acid 2.5 H (0.4-2.0) mmol/L Calcium 9.0 (8.5-10.1) mg/dL Magnesium 1.9 (1.8-2.4) mg/dl Total Bilirubin 0.9 (0.2-1.0) mg/dL AST 15 (15-37) U/L ALT 28 (16-63) U/L Alkaline Phosphatase 57 (46-116) U/L Troponin I < 0.017 (0.00-0.056) ng/mL C-Reactive Protein 0.3 (<1.0) mg/dL NT-Pro-B Natriuret Pep 219 H (0-125) pg/mL Total Protein 7.5 (6.4-8.2) g/dl Albumin 3.3 L (3.4-5.0) g/dl Globulin 4.2 gm/dL Albumin/Globulin Ratio 0.8 L (1-2) Lipase 95 (73-393) U/L Urine Color (Yellow) Urine Appearance (Clear) Urine pH (5.0-8.0) Ur Specific [place] (1.005-1.030) Urine Protein (Negative) Urine Glucose (UA) (Negative) Urine Ketones (Negative) Urine Occult Blood (Negative) Urine Nitrite (Negative) Urine Bilirubin (Negative) Urine Urobilinogen (0.2-1.0) Ur Leukocyte Esterase (Negative) Urine RBC (0-5) /hpf Urine WBC (0-5) /hpf Ur Squamous Epith Cells (0-5) /hpf Amorphous Sediment (NOT SEEN) /hpf Urine Bacteria (FEW) /hpf Hyaline Casts (0-5) /lpf Urine Mucus (FEW) /hpf Ketones (0.0-0.3) mM 02/19/19 02/19/19 02/19/19 Range/Units 12:54 12:54 12:57 WBC (4.23-9.07) K/mm3 RBC (4.63-6.08) M/mm3 Hgb (13.7-17.5) gm/L Hct (40.1-51.0) % MCV (79.0-92.2) fl MCH (25.7-32.2) pg MCHC (32.2-35.5) g/dl RDW Std Deviation (35.1-43.9) fL Plt Count (163-337) K/mm3 MPV (9.4-12.3) fl Neutrophils % (Manual) (40-60) % Band Neutrophils % (0-10) % Lymphocytes % (Manual) (20-40) % Atypical Lymphs % % Monocytes % (Manual) (2-10) % Eosinophils % (Manual) (0.8-7.0) % Basophils % (Manual) (0.2-1.2) Platelet Estimate RBC Morph Comment ESR (0-15) mm/hr PT (9.7-12.0) SECONDS INR Sodium (136-145) mEq/L Potassium (3.5-5.1) mEq/L Chloride (98-107) mEq/L Carbon Dioxide (21-32) mEq/L Anion Gap (5-15) BUN (7-18) mg/dL Creatinine (0.7-1.3) mg/dL Est Cr Clr Drug Dosing mL/min Estimated GFR (MDRD) (>60) mL/min BUN/Creatinine Ratio (14-18) Glucose (83-115) mg/dL POC Glucose 268 H (83-110) mg/dL Hemoglobin A1c 8.70 H (4.50-6.20) % Serum Osmolality (280-300) mosm/kg Lactic Acid (0.4-2.0) mmol/L Calcium (8.5-10.1) mg/dL Magnesium (1.8-2.4) mg/dl Total Bilirubin (0.2-1.0) mg/dL AST (15-37) U/L ALT (16-63) U/L Alkaline Phosphatase (46-116) U/L Troponin I (0.00-0.056) ng/mL C-Reactive Protein (<1.0) mg/dL NT-Pro-B Natriuret Pep (0-125) pg/mL Total Protein (6.4-8.2) g/dl Albumin (3.4-5.0) g/dl Globulin gm/dL Albumin/Globulin Ratio (1-2) Lipase (73-393) U/L Urine Color (Yellow) Urine Appearance (Clear) Urine pH (5.0-8.0) Ur Specific [place] (1.005-1.030) Urine Protein (Negative) Urine Glucose (UA) (Negative) Urine Ketones (Negative) Urine Occult Blood (Negative) Urine Nitrite (Negative) Urine Bilirubin (Negative) Urine Urobilinogen (0.2-1.0) Ur Leukocyte Esterase (Negative) Urine RBC (0-5) /hpf Urine WBC (0-5) /hpf Ur Squamous Epith Cells (0-5) /hpf Amorphous Sediment (NOT SEEN) /hpf Urine Bacteria (FEW) /hpf Hyaline Casts (0-5) /lpf Urine Mucus (FEW) /hpf Ketones 0.2 (0.0-0.3) mM 02/19/19 02/19/19 02/19/19 Range/Units 14:55 17:51 18:50 WBC (4.23-9.07) K/mm3 RBC (4.63-6.08) M/mm3 Hgb (13.7-17.5) gm/L Hct (40.1-51.0) % MCV (79.0-92.2) fl MCH (25.7-32.2) pg MCHC (32.2-35.5) g/dl RDW Std Deviation (35.1-43.9) fL Plt Count (163-337) K/mm3 MPV (9.4-12.3) fl Neutrophils % (Manual) (40-60) % Band Neutrophils % (0-10) % Lymphocytes % (Manual) (20-40) % Atypical Lymphs % % Monocytes % (Manual) (2-10) % Eosinophils % (Manual) (0.8-7.0) % Basophils % (Manual) (0.2-1.2) Platelet Estimate RBC Morph Comment ESR (0-15) mm/hr PT (9.7-12.0) SECONDS INR Sodium (136-145) mEq/L Potassium (3.5-5.1) mEq/L Chloride (98-107) mEq/L Carbon Dioxide (21-32) mEq/L Anion Gap (5-15) BUN (7-18) mg/dL Creatinine (0.7-1.3) mg/dL Est Cr Clr Drug Dosing mL/min Estimated GFR (MDRD) (>60) mL/min BUN/Creatinine Ratio (14-18) Glucose (83-115) mg/dL POC Glucose 185 H (83-110) mg/dL Hemoglobin A1c (4.50-6.20) % Serum Osmolality (280-300) mosm/kg Lactic Acid 1.3 (0.4-2.0) mmol/L Calcium (8.5-10.1) mg/dL Magnesium (1.8-2.4) mg/dl Total Bilirubin (0.2-1.0) mg/dL AST (15-37) U/L ALT (16-63) U/L Alkaline Phosphatase (46-116) U/L Troponin I (0.00-0.056) ng/mL C-Reactive Protein (<1.0) mg/dL NT-Pro-B Natriuret Pep (0-125) pg/mL Total Protein (6.4-8.2) g/dl Albumin (3.4-5.0) g/dl Globulin gm/dL Albumin/Globulin Ratio (1-2) Lipase (73-393) U/L Urine Color Dark yellow (Yellow) Urine Appearance Clear (Clear) Urine pH 5.5 (5.0-8.0) Ur Specific [place] > or = 1.030 (1.005-1.030) Urine Protein 1+ H (Negative) Urine Glucose (UA) 1+ H (Negative) Urine Ketones Trace H (Negative) Urine Occult Blood Negative (Negative) Urine Nitrite Negative (Negative) Urine Bilirubin Negative (Negative) Urine Urobilinogen 0.2 (0.2-1.0) Ur Leukocyte Esterase Negative (Negative) Urine RBC 0-5 (0-5) /hpf Urine WBC 0-5 (0-5) /hpf Ur Squamous Epith Cells 0-5 (0-5) /hpf Amorphous Sediment Few H (NOT SEEN) /hpf Urine Bacteria Few (FEW) /hpf Hyaline Casts 0-5 (0-5) /lpf Urine Mucus Few (FEW) /hpf Ketones (0.0-0.3) mM Result Diagrams: 02/19/19 12:54 02/19/19 12:54 Problem List Initiated/Reviewed/Updated: Yes Orders Last 24hrs: Active Orders 24 hr Category Date Time Status Admission Status [Patient Status] [ADT] Routine ADT 02/19/19 17:29 Active Blood Glucose Check, Bedside [RC] ONETIME Care 02/19/19 12:40 Active Blood Glucose Check, Bedside [RC] ONETIME Care 02/19/19 17:04 Active EKG Documentation Completion [RC] STAT Care 02/19/19 12:40 Active Chest 1V Frontal [CR] Stat Exams 02/19/19 12:40 Taken CULTURE BLOOD [BC] Stat Lab 02/19/19 12:54 Received CULTURE BLOOD [BC] Stat Lab 02/19/19 13:04 Received CULTURE STOOL + SHIGATOX [RM] Stat Lab 02/19/19 12:42 Ordered WBC, STOOL [OP] Stat Lab 02/19/19 12:42 Ordered Acetaminophen [Tylenol] Med 02/19/19 13:32 Active 650 mg PO Q4H PRN Sodium Chloride 0.9% [Normal Saline] 1,000 ml Med 02/19/19 12:45 Active IV ASDIRECTED Sodium Chloride 0.9% [Normal Saline] 1,000 ml Med 02/19/19 15:20 Active IV ASDIRECTED Blood Culture x2 Reflex Set [OM.PC] Stat Oth 02/19/19 12:40 Ordered Medication Orders Acetaminophen (Tylenol) 650 mg PO Q4H PRN PRN Reason: Pain Last Admin: 02/19/19 13:51 Dose: 650 mg Sodium Chloride (Normal Saline) 1,000 mls @ 500 mls/hr IV ASDIRECTED DESTINY Last Admin: 02/19/19 13:00 Dose: 500 mls/hr Sodium Chloride (Normal Saline) 1,000 mls @ 500 mls/hr IV ASDIRECTED [facility] Last Admin: 02/19/19 15:20 Dose: 500 mls/hr Assessment/Plan Comment:: Assessment: Acute: SIRS/Fever of Unknown Origin - Temp of 38.4C, RR of 20-30s and LA of 2.5 - UA is negative - CXR: nothing acute seen - PRN antipyretic and Supportive care Pre-Renal Azotemia - CR of 1.6 and BUN of 23 - Likely 2/2 Dehydration - He drinks alcohol; - UA spec gravity > or = 1.030 - Expect to improve with hydration Accelerated HTN - BP of 134/103 in ED - PRN Hydralazine for BP > 140/90 mmHg Hyperglycemia with DM2 - BS of 268 with A1C of 8.70 - Exercise controlled - Accu-check QID with ISS Watery Diarrhea - 10 day hx/o watery diarrhea - WBC stool, fecal lactoferrin and stool culture plus C. diff screening - Isolation precautions Nicotine Use Disorder - Smokes a pack per day - Offered Nicotine Path Daily- refused it Medical Non-Adherence to Treatment - Quit Diabetic Medications about a year ago - Exercise controlled only - BS is over 300 - A1C is 8.70 CT Scan Additional Findings - Abdominal Aortic Aneurysm 5.5 CM - Cysts within both kidneys - Questionable non-obstructing gallstones within the gall bladder Chronic: Impaired Vision, COPD, DM2-Exercise Controlled, Hx/o NSTEMI, Abdominal Aneurysm, and Chronic Alcohol Use Plan: Admit to [facility] [place] with Tele Routine AM Labs Sepsis work up with Procal level IV Hydration AHA/ADA diet GB U/S in AM DVT/GI prophylaxis PT/OT consult SW/CM for d/c planning Code status: 1 Additional orders as above Prognosis guarded-good
[2019-02-19] MEDS ORDERED: Acetaminophen 325 MG Tab PO PRN (20:01)
[2019-02-19] MEDS ORDERED: Docusate Sodium 100 MG Cap PO PRN (20:01)
[2019-02-19] MEDS ORDERED: Ondansetron 4 MG/2 ML SDV IV PRN (20:01)
[2019-02-19] MEDS ORDERED: LORazepam 2 MG/ML SDV IV PRN (20:01)
[2019-02-19] MEDS ORDERED: Ketorolac 30 MG/ML SDV IV PRN (20:01)
[2019-02-19] MEDS ORDERED: Albuterol/Ipratropium 3.0-0.5 MG/3 ML Neb Soln NEB PRN (20:01)
[2019-02-19] MEDS ORDERED: Promethazine 6.25 MG in Sodium Chloride 0.9% 50 ML IV PRN (20:01)
[2019-02-19] MEDS ORDERED: HYDROmorphone 0.5 MG/0.5 ML Syringe IVPUSH PRN (20:01)
[2019-02-19] MEDS ORDERED: Pantoprazole 40 MG Vial IV ONE (20:01)
[2019-02-19] MEDS ORDERED: Temazepam 7.5 MG Cap PO PRN (20:01)
[2019-02-19] MEDS ORDERED: Acetaminophen/HYDROcodone 325-5 MG Tab PO PRN (20:01)
[2019-02-19] MEDS ORDERED: Bisacodyl 5 MG Tab PO PRN (20:01)
[2019-02-19] MEDS ORDERED: Lactated Ringers 1,000 ML IV ONE (20:04)
[2019-02-19] MEDS ORDERED: Thiamine 100 MG in Sodium Chloride 0.9% 100 ML IV ONE (20:26)
[2019-02-19] MEDS ORDERED: hydrALAZINE 20 MG/ML SDV IVPUSH PRN (20:29)
[2019-02-19] MEDS ORDERED: Magnesium Sulfate/Water 2 GM in Premix Bag 1 BAG IV PRN (20:29)
[2019-02-19] MEDS ORDERED: Ketorolac 15 MG/ML SDV IVPUSH PRN (20:29)
[2019-02-19] MEDS ORDERED: Folic Acid 50 MG/10 ML MDV SUBCUT ONE (20:30)
[2019-02-19] MEDS ORDERED: 50% Dextrose in Water 50 ML Syringe IVPUSH PRN (20:31)
[2019-02-19] MEDS ORDERED: Vancomycin 1 GM, Vancomycin 250 MG in Sodium Chloride 0.9% 500 ML IV SCH (21:00)
[2019-02-19] MEDS: Famotidine 20 MG Tab PO SCH (21:55)
[2019-02-19] MEDS: Insulin Lispro 100 Units/ML 3 ML Vial SUBCUT SCH (21:58)
--- NOTE | 2019-02-19 22:55 | PCM.HP.2 ---
H&P History of Present Illness - General Date of Service: 02/19/19 Admit Problem/Dx: Admission Diagnosis/Problem Admission Diagnosis/Problem Bacteremia Source of Information: Patient, Family, Old Records, Provider, RN Notes Reviewed History Limitations: Reports: No Limitations - History of Present Illness Initial Comments - Free Text/Narative: This is a 73 yo unpleasant elderly white male with past medical hx/o Impaired Vision, COPD, DM2-Exercise Controlled, Hx/o NSTEMI, Chronic ETOH Use and Abdominal Aneurysm who presents to ED with complaints of 10 day hx/o flu likes symptoms. He reports having watery diarrhea, associated with abdominal cramps, nausea, vomiting, productive cough, fever, chills, headaches, reduced appetite, malaise and generalized weakness. He denies any recent travel outside the country, no unusual diet or drinks, and no recent antibiotic use. He had a similar episode in the past wherein he was diagnosed with bacteremia from pneumonia. He admits to drinking alcohol routinely with drafts and crown coke on Tuesdays and Fridays. He also admits to smoking cigarettes about a pack a day. He denies any illicit drug use. However he is concerns about possible food poisoning. His initial work up in ED shows a fairly unremarkable CBC. His Chemistry is significant for AG of 15.3, BUN of 23, Cr of 1.6, BS of 314, A1C of 8.70, Serum Osm of 308, LA of 2.5, ProBNP of 219, and Albumin of 3.3. His UA and UDS are negative. His chest x-ray and abdominal CT scan both show nothing acute. Patient comes in primarily for SIRS/FUO from Probable Gastroenteritis. - Related Data Allergies/Adverse Reactions: Allergies Allergy/AdvReac Type Severity Reaction Status Date / Time No Known Allergies Allergy Verified 02/19/19 12:21 Home Medications: Home Meds . 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 Musculoskeletal History: Reports: Fracture Neurological History: Reports: Neuropathy, Diabetic Psychiatric History: Reports: Addiction, Anxiety, Depression, Other (See Below) Other Psychiatric History: tobacco Endocrine/Metabolic History: Reports: Diabetes, Type II - Infectious Disease History Infectious Disease History: Reports: Chicken Pox, Measles, Mumps Social & Family History - Family History Family Medical History: Unobtainable - Tobacco Use Smoking Status *Q: Current Every Day Smoker Years of Tobacco use: 55 Packs/Tins Daily: 1 Used Tobacco, but Quit: No Second Hand Smoke Exposure: No - Caffeine Use Caffeine Use: Reports: Coffee Other Caffeine Use: 2-3 cups/day - Alcohol Use Days Per Week of Alcohol Use: 2 Number of Drinks Per Day: 3 Total Drinks Per Week: 6 - Recreational Drug Use Recreational Drug Use: No - Living Situation & Occupation Living situation: Reports: (Self-employed) Occupation: Employed H&P Review of Systems - Review of Systems: Review Of Systems: ROS reveals no pertinent complaints other than HPI. Exam - Exam Exam: See Below - Vital Signs Vital Signs: Last Vital Signs Temp 37.1 C 02/19/19 20:01 Pulse 60 02/19/19 20:01 Resp 15 02/19/19 20:01 BP 133/66 02/19/19 20:01 Pulse Ox 98 02/19/19 19:25 Orthostatic Blood Pressure [ 102/66 Standing] Orthostatic Blood Pressure [ 124/73 Sitting] Orthostatic Blood Pressure [ 134/103 Supine] Weight: 82.327 kg - Exam General: Alert, Oriented, Cooperative, Mild Distress HEENT: Conjunctiva Clear, EACs Clear, EOMI, Hearing Intact, Mucosa Moist & [place] , Nares Patent, Normal Nasal Septum, Posterior Pharynx Clear, Pupils Equal, Pupils Reactive Neck: Supple, Trachea Midline Lungs: Normal Respiratory Effort, Decreased Breath Sounds, Wheezing (mild) Cardiovascular: Regular Rate, Regular Rhythm GI/Abdominal Exam: Normal Bowel Sounds, Soft, Non-Tender, No Organomegaly, No Distention, No Abnormal Bruit, No Mass (Male) Exam: Deferred Rectal (Males) Exam: Deferred Back Exam: Normal Inspection, Decreased Range of Motion Extremities: Normal Inspection, Normal Range of Motion, Non-Tender, No Pedal Edema, Normal Capillary Refill Peripheral Pulses: 2+: Posterior Tibial (L), Posterior Tibial (R), Dorsalis Pedis (L), Dorsalis Pedis (R) Skin: Warm, Dry, Intact Neurological: Reflexes Unequal Neuro Extensive - Mental Status: Normal Cognition, Memory Intact Neuro Extensive - Motor, Sensory, Reflexes: CN II-XII Intact, Normal Gait Psychiatric: Alert, Normal Affect, Suicidal Ideation - Patient Data Lab Results Last 24 hrs: Laboratory Results - last 24 hr 02/19/19 02/19/19 02/19/19 Range/Units 12:54 12:54 12:54 WBC 9.53 H (4.23-9.07) K/mm3 RBC 5.10 (4.63-6.08) M/mm3 Hgb 14.6 D (13.7-17.5) gm/L Hct 44.4 (40.1-51.0) % MCV 87.1 (79.0-92.2) fl MCH 28.6 (25.7-32.2) pg MCHC 32.9 (32.2-35.5) g/dl RDW Std Deviation 44.9 H (35.1-43.9) fL Plt Count 143 L D (163-337) K/mm3 MPV 12.3 (9.4-12.3) fl Neutrophils % (Manual) 84 H (40-60) % Band Neutrophils % 0 (0-10) % Lymphocytes % (Manual) 13 L (20-40) % Atypical Lymphs % 0 % Monocytes % (Manual) 3 (2-10) % Eosinophils % (Manual) 0 L (0.8-7.0) % Basophils % (Manual) 0 L (0.2-1.2) Platelet Estimate Adequate RBC Morph Comment Normal ESR 27 H (0-15) mm/hr PT 11.4 (9.7-12.0) SECONDS INR 1.05 Sodium (136-145) mEq/L Potassium (3.5-5.1) mEq/L Chloride (98-107) mEq/L Carbon Dioxide (21-32) mEq/L Anion Gap (5-15) BUN (7-18) mg/dL Creatinine (0.7-1.3) mg/dL Est Cr Clr Drug Dosing mL/min Estimated GFR (MDRD) (>60) mL/min BUN/Creatinine Ratio (14-18) Glucose (83-115) mg/dL POC Glucose (83-110) mg/dL Hemoglobin A1c (4.50-6.20) % Serum Osmolality (280-300) mosm/kg Lactic Acid (0.4-2.0) mmol/L Calcium (8.5-10.1) mg/dL Magnesium (1.8-2.4) mg/dl Total Bilirubin (0.2-1.0) mg/dL AST (15-37) U/L ALT (16-63) U/L Alkaline Phosphatase (46-116) U/L Troponin I (0.00-0.056) ng/mL C-Reactive Protein (<1.0) mg/dL NT-Pro-B Natriuret Pep (0-125) pg/mL Total Protein (6.4-8.2) g/dl Albumin (3.4-5.0) g/dl Globulin gm/dL Albumin/Globulin Ratio (1-2) Lipase (73-393) U/L Urine Color (Yellow) Urine Appearance (Clear) Urine pH (5.0-8.0) Ur Specific [place] (1.005-1.030) Urine Protein (Negative) Urine Glucose (UA) (Negative) Urine Ketones (Negative) Urine Occult Blood (Negative) Urine Nitrite (Negative) Urine Bilirubin (Negative) Urine Urobilinogen (0.2-1.0) Ur Leukocyte Esterase (Negative) Urine RBC (0-5) /hpf Urine WBC (0-5) /hpf Ur Squamous Epith Cells (0-5) /hpf Amorphous Sediment (NOT SEEN) /hpf Urine Bacteria (FEW) /hpf Hyaline Casts (0-5) /lpf Urine Mucus (FEW) /hpf Ur Random Creatinine (30.0-125.0) mg/dL U Random Total Protein (0.0-11.8) mg/dL Protein/Creatinin Ratio (0-149) mg/g Urine Opiates Screen (NWQJZY=307) Ur Buprenorphine Scrn (CUTOFF=10) Ur Oxycodone Screen (GGK0TY=148) Urine Methadone Screen (WYM1GD=849) Ur Propoxyphene Screen (FPRLNW=631) Ur Barbiturates Screen (EGUFNS=719) Ur Tricyclics Screen (RHGPXO=420) Ur Phencyclidine Scrn (CUTOFF=25) Ur Amphetamine Screen (FZIWPZ=732) U Methamphetamines Scrn (FZJCAU=700) U Benzodiazepines Scrn (ZEWXGC=641) U Cocaine Metab Screen (CYDCGD=295) U Marijuana (THC) Screen (CUTOFF=50) Ketones (0.0-0.3) mM 02/19/19 02/19/19 02/19/19 Range/Units 12:54 12:54 12:54 WBC (4.23-9.07) K/mm3 RBC (4.63-6.08) M/mm3 Hgb (13.7-17.5) gm/L Hct (40.1-51.0) % MCV (79.0-92.2) fl MCH (25.7-32.2) pg MCHC (32.2-35.5) g/dl RDW Std Deviation (35.1-43.9) fL Plt Count (163-337) K/mm3 MPV (9.4-12.3) fl Neutrophils % (Manual) (40-60) % Band Neutrophils % (0-10) % Lymphocytes % (Manual) (20-40) % Atypical Lymphs % % Monocytes % (Manual) (2-10) % Eosinophils % (Manual) (0.8-7.0) % Basophils % (Manual) (0.2-1.2) Platelet Estimate RBC Morph Comment ESR (0-15) mm/hr PT (9.7-12.0) SECONDS INR Sodium 140 (136-145) mEq/L Potassium 4.3 (3.5-5.1) mEq/L Chloride 104 (98-107) mEq/L Carbon Dioxide 25 (21-32) mEq/L Anion Gap 15.3 H (5-15) BUN 23 H (7-18) mg/dL Creatinine 1.6 H (0.7-1.3) mg/dL Est Cr Clr Drug Dosing 45.13 mL/min Estimated GFR (MDRD) 43 (>60) mL/min BUN/Creatinine Ratio 14.4 (14-18) Glucose 314 H (83-115) mg/dL POC Glucose (83-110) mg/dL Hemoglobin A1c (4.50-6.20) % Serum Osmolality 308 H (280-300) mosm/kg Lactic Acid 2.5 H (0.4-2.0) mmol/L Calcium 9.0 (8.5-10.1) mg/dL Magnesium 1.9 (1.8-2.4) mg/dl Total Bilirubin 0.9 (0.2-1.0) mg/dL AST 15 (15-37) U/L ALT 28 (16-63) U/L Alkaline Phosphatase 57 (46-116) U/L Troponin I < 0.017 (0.00-0.056) ng/mL C-Reactive Protein 0.3 (<1.0) mg/dL NT-Pro-B Natriuret Pep 219 H (0-125) pg/mL Total Protein 7.5 (6.4-8.2) g/dl Albumin 3.3 L (3.4-5.0) g/dl Globulin 4.2 gm/dL Albumin/Globulin Ratio 0.8 L (1-2) Lipase 95 (73-393) U/L Urine Color (Yellow) Urine Appearance (Clear) Urine pH (5.0-8.0) Ur Specific [place] (1.005-1.030) Urine Protein (Negative) Urine Glucose (UA) (Negative) Urine Ketones (Negative) Urine Occult Blood (Negative) Urine Nitrite (Negative) Urine Bilirubin (Negative) Urine Urobilinogen (0.2-1.0) Ur Leukocyte Esterase (Negative) Urine RBC (0-5) /hpf Urine WBC (0-5) /hpf Ur Squamous Epith Cells (0-5) /hpf Amorphous Sediment (NOT SEEN) /hpf Urine Bacteria (FEW) /hpf Hyaline Casts (0-5) /lpf Urine Mucus (FEW) /hpf Ur Random Creatinine (30.0-125.0) mg/dL U Random Total Protein (0.0-11.8) mg/dL Protein/Creatinin Ratio (0-149) mg/g Urine Opiates Screen (DXUSKV=472) Ur Buprenorphine Scrn (CUTOFF=10) Ur Oxycodone Screen (ASH7DP=310) Urine Methadone Screen (KSV0VY=612) Ur Propoxyphene Screen (ZPDQLQ=565) Ur Barbiturates Screen (TONTUD=476) Ur Tricyclics Screen (CLDLOM=713) Ur Phencyclidine Scrn (CUTOFF=25) Ur Amphetamine Screen (LANTGU=239) U Methamphetamines Scrn (TJXZYG=060) U Benzodiazepines Scrn (IHPLOU=916) U Cocaine Metab Screen (LHCZVG=957) U Marijuana (THC) Screen (CUTOFF=50) Ketones (0.0-0.3) mM 02/19/19 02/19/19 02/19/19 Range/Units 12:54 12:54 12:57 WBC (4.23-9.07) K/mm3 RBC (4.63-6.08) M/mm3 Hgb (13.7-17.5) gm/L Hct (40.1-51.0) % MCV (79.0-92.2) fl MCH (25.7-32.2) pg MCHC (32.2-35.5) g/dl RDW Std Deviation (35.1-43.9) fL Plt Count (163-337) K/mm3 MPV (9.4-12.3) fl Neutrophils % (Manual) (40-60) % Band Neutrophils % (0-10) % Lymphocytes % (Manual) (20-40) % Atypical Lymphs % % Monocytes % (Manual) (2-10) % Eosinophils % (Manual) (0.8-7.0) % Basophils % (Manual) (0.2-1.2) Platelet Estimate RBC Morph Comment ESR (0-15) mm/hr PT (9.7-12.0) SECONDS INR Sodium (136-145) mEq/L Potassium (3.5-5.1) mEq/L Chloride (98-107) mEq/L Carbon Dioxide (21-32) mEq/L Anion Gap (5-15) BUN (7-18) mg/dL Creatinine (0.7-1.3) mg/dL Est Cr Clr Drug Dosing mL/min Estimated GFR (MDRD) (>60) mL/min BUN/Creatinine Ratio (14-18) Glucose (83-115) mg/dL POC Glucose 268 H (83-110) mg/dL Hemoglobin A1c 8.70 H (4.50-6.20) % Serum Osmolality (280-300) mosm/kg Lactic Acid (0.4-2.0) mmol/L Calcium (8.5-10.1) mg/dL Magnesium (1.8-2.4) mg/dl Total Bilirubin (0.2-1.0) mg/dL AST (15-37) U/L ALT (16-63) U/L Alkaline Phosphatase (46-116) U/L Troponin I (0.00-0.056) ng/mL C-Reactive Protein (<1.0) mg/dL NT-Pro-B Natriuret Pep (0-125) pg/mL Total Protein (6.4-8.2) g/dl Albumin (3.4-5.0) g/dl Globulin gm/dL Albumin/Globulin Ratio (1-2) Lipase (73-393) U/L Urine Color (Yellow) Urine Appearance (Clear) Urine pH (5.0-8.0) Ur Specific [place] (1.005-1.030) Urine Protein (Negative) Urine Glucose (UA) (Negative) Urine Ketones (Negative) Urine Occult Blood (Negative) Urine Nitrite (Negative) Urine Bilirubin (Negative) Urine Urobilinogen (0.2-1.0) Ur Leukocyte Esterase (Negative) Urine RBC (0-5) /hpf Urine WBC (0-5) /hpf Ur Squamous Epith Cells (0-5) /hpf Amorphous Sediment (NOT SEEN) /hpf Urine Bacteria (FEW) /hpf Hyaline Casts (0-5) /lpf Urine Mucus (FEW) /hpf Ur Random Creatinine (30.0-125.0) mg/dL U Random Total Protein (0.0-11.8) mg/dL Protein/Creatinin Ratio (0-149) mg/g Urine Opiates Screen (KZDFXH=678) Ur Buprenorphine Scrn (CUTOFF=10) Ur Oxycodone Screen (PVD2IS=458) Urine Methadone Screen (GNQ1MP=263) Ur Propoxyphene Screen (XUPYIE=200) Ur Barbiturates Screen (QFSCZI=138) Ur Tricyclics Screen (IKBTWV=788) Ur Phencyclidine Scrn (CUTOFF=25) Ur Amphetamine Screen (XYUOLX=845) U Methamphetamines Scrn (GETHMM=701) U Benzodiazepines Scrn (KQQODO=930) U Cocaine Metab Screen (XTAAYT=368) U Marijuana (THC) Screen (CUTOFF=50) Ketones 0.2 (0.0-0.3) mM 02/19/19 02/19/19 02/19/19 Range/Units 14:55 14:55 14:55 WBC (4.23-9.07) K/mm3 RBC (4.63-6.08) M/mm3 Hgb (13.7-17.5) gm/L Hct (40.1-51.0) % MCV (79.0-92.2) fl MCH (25.7-32.2) pg MCHC (32.2-35.5) g/dl RDW Std Deviation (35.1-43.9) fL Plt Count (163-337) K/mm3 MPV (9.4-12.3) fl Neutrophils % (Manual) (40-60) % Band Neutrophils % (0-10) % Lymphocytes % (Manual) (20-40) % Atypical Lymphs % % Monocytes % (Manual) (2-10) % Eosinophils % (Manual) (0.8-7.0) % Basophils % (Manual) (0.2-1.2) Platelet Estimate RBC Morph Comment ESR (0-15) mm/hr PT (9.7-12.0) SECONDS INR Sodium (136-145) mEq/L Potassium (3.5-5.1) mEq/L Chloride (98-107) mEq/L Carbon Dioxide (21-32) mEq/L Anion Gap (5-15) BUN (7-18) mg/dL Creatinine (0.7-1.3) mg/dL Est Cr Clr Drug Dosing mL/min Estimated GFR (MDRD) (>60) mL/min BUN/Creatinine Ratio (14-18) Glucose (83-115) mg/dL POC Glucose (83-110) mg/dL Hemoglobin A1c (4.50-6.20) % Serum Osmolality (280-300) mosm/kg Lactic Acid (0.4-2.0) mmol/L Calcium (8.5-10.1) mg/dL Magnesium (1.8-2.4) mg/dl Total Bilirubin (0.2-1.0) mg/dL AST (15-37) U/L ALT (16-63) U/L Alkaline Phosphatase (46-116) U/L Troponin I (0.00-0.056) ng/mL C-Reactive Protein (<1.0) mg/dL NT-Pro-B Natriuret Pep (0-125) pg/mL Total Protein (6.4-8.2) g/dl Albumin (3.4-5.0) g/dl Globulin gm/dL Albumin/Globulin Ratio (1-2) Lipase (73-393) U/L Urine Color Dark yellow (Yellow) Urine Appearance Clear (Clear) Urine pH 5.5 (5.0-8.0) Ur Specific [place] > or = 1.030 (1.005-1.030) Urine Protein 1+ H (Negative) Urine Glucose (UA) 1+ H (Negative) Urine Ketones Trace H (Negative) Urine Occult Blood Negative (Negative) Urine Nitrite Negative (Negative) Urine Bilirubin Negative (Negative) Urine Urobilinogen 0.2 (0.2-1.0) Ur Leukocyte Esterase Negative (Negative) Urine RBC 0-5 (0-5) /hpf Urine WBC 0-5 (0-5) /hpf Ur Squamous Epith Cells 0-5 (0-5) /hpf Amorphous Sediment Few H (NOT SEEN) /hpf Urine Bacteria Few (FEW) /hpf Hyaline Casts 0-5 (0-5) /lpf Urine Mucus Few (FEW) /hpf Ur Random Creatinine 281.4 H (30.0-125.0) mg/dL U Random Total Protein 29.6 H (0.0-11.8) mg/dL Protein/Creatinin Ratio 105.2 (0-149) mg/g Urine Opiates Screen Negative (HRRMHG=901) Ur Buprenorphine Scrn Negative (CUTOFF=10) Ur Oxycodone Screen Negative (OTG7IG=696) Urine Methadone Screen Negative (TBZ5PT=879) Ur Propoxyphene Screen Negative (HOQHLN=167) Ur Barbiturates Screen Negative (HSUSIB=511) Ur Tricyclics Screen Negative (DVFTOL=563) Ur Phencyclidine Scrn Negative (CUTOFF=25) Ur Amphetamine Screen Negative (FZYNNI=634) U Methamphetamines Scrn Negative (KVVYHG=417) U Benzodiazepines Scrn Negative (LGMGIO=973) U Cocaine Metab Screen Negative (AKUXEU=606) U Marijuana (THC) Screen Negative (CUTOFF=50) Ketones (0.0-0.3) mM 02/19/19 02/19/19 02/19/19 Range/Units 17:51 18:50 18:50 WBC (4.23-9.07) K/mm3 RBC (4.63-6.08) M/mm3 Hgb (13.7-17.5) gm/L Hct (40.1-51.0) % MCV (79.0-92.2) fl MCH (25.7-32.2) pg MCHC (32.2-35.5) g/dl RDW Std Deviation (35.1-43.9) fL Plt Count (163-337) K/mm3 MPV (9.4-12.3) fl Neutrophils % (Manual) (40-60) % Band Neutrophils % (0-10) % Lymphocytes % (Manual) (20-40) % Atypical Lymphs % % Monocytes % (Manual) (2-10) % Eosinophils % (Manual) (0.8-7.0) % Basophils % (Manual) (0.2-1.2) Platelet Estimate RBC Morph Comment ESR (0-15) mm/hr PT (9.7-12.0) SECONDS INR Sodium (136-145) mEq/L Potassium (3.5-5.1) mEq/L Chloride (98-107) mEq/L Carbon Dioxide (21-32) mEq/L Anion Gap (5-15) BUN (7-18) mg/dL Creatinine (0.7-1.3) mg/dL Est Cr Clr Drug Dosing mL/min Estimated GFR (MDRD) (>60) mL/min BUN/Creatinine Ratio (14-18) Glucose (83-115) mg/dL POC Glucose 185 H (83-110) mg/dL Hemoglobin A1c (4.50-6.20) % Serum Osmolality (280-300) mosm/kg Lactic Acid 1.3 (0.4-2.0) mmol/L Calcium (8.5-10.1) mg/dL Magnesium (1.8-2.4) mg/dl Total Bilirubin (0.2-1.0) mg/dL AST (15-37) U/L ALT (16-63) U/L Alkaline Phosphatase (46-116) U/L Troponin I (0.00-0.056) ng/mL C-Reactive Protein < 0.2 (<1.0) mg/dL NT-Pro-B Natriuret Pep (0-125) pg/mL Total Protein (6.4-8.2) g/dl Albumin (3.4-5.0) g/dl Globulin gm/dL Albumin/Globulin Ratio (1-2) Lipase (73-393) U/L Urine Color (Yellow) Urine Appearance (Clear) Urine pH (5.0-8.0) Ur Specific [place] (1.005-1.030) Urine Protein (Negative) Urine Glucose (UA) (Negative) Urine Ketones (Negative) Urine Occult Blood (Negative) Urine Nitrite (Negative) Urine Bilirubin (Negative) Urine Urobilinogen (0.2-1.0) Ur Leukocyte Esterase (Negative) Urine RBC (0-5) /hpf Urine WBC (0-5) /hpf Ur Squamous Epith Cells (0-5) /hpf Amorphous Sediment (NOT SEEN) /hpf Urine Bacteria (FEW) /hpf Hyaline Casts (0-5) /lpf Urine Mucus (FEW) /hpf Ur Random Creatinine (30.0-125.0) mg/dL U Random Total Protein (0.0-11.8) mg/dL Protein/Creatinin Ratio (0-149) mg/g Urine Opiates Screen (UTDGOJ=599) Ur Buprenorphine Scrn (CUTOFF=10) Ur Oxycodone Screen (QID5RL=449) Urine Methadone Screen (WEC1EU=816) Ur Propoxyphene Screen (UQLCCC=172) Ur Barbiturates Screen (MTPTOJ=968) Ur Tricyclics Screen (UMVQGK=287) Ur Phencyclidine Scrn (CUTOFF=25) Ur Amphetamine Screen (KOCXYU=599) U Methamphetamines Scrn (WSAFXX=367) U Benzodiazepines Scrn (AZWKGA=609) U Cocaine Metab Screen (BMEXGU=538) U Marijuana (THC) Screen (CUTOFF=50) Ketones (0.0-0.3) mM 02/19/19 Range/Units 21:47 WBC (4.23-9.07) K/mm3 RBC (4.63-6.08) M/mm3 Hgb (13.7-17.5) gm/L Hct (40.1-51.0) % MCV (79.0-92.2) fl MCH (25.7-32.2) pg MCHC (32.2-35.5) g/dl RDW Std Deviation (35.1-43.9) fL Plt Count (163-337) K/mm3 MPV (9.4-12.3) fl Neutrophils % (Manual) (40-60) % Band Neutrophils % (0-10) % Lymphocytes % (Manual) (20-40) % Atypical Lymphs % % Monocytes % (Manual) (2-10) % Eosinophils % (Manual) (0.8-7.0) % Basophils % (Manual) (0.2-1.2) Platelet Estimate RBC Morph Comment ESR (0-15) mm/hr PT (9.7-12.0) SECONDS INR Sodium (136-145) mEq/L Potassium (3.5-5.1) mEq/L Chloride (98-107) mEq/L Carbon Dioxide (21-32) mEq/L Anion Gap (5-15) BUN (7-18) mg/dL Creatinine (0.7-1.3) mg/dL Est Cr Clr Drug Dosing mL/min Estimated GFR (MDRD) (>60) mL/min BUN/Creatinine Ratio (14-18) Glucose (83-115) mg/dL POC Glucose 163 H (83-110) mg/dL Hemoglobin A1c (4.50-6.20) % Serum Osmolality (280-300) mosm/kg Lactic Acid (0.4-2.0) mmol/L Calcium (8.5-10.1) mg/dL Magnesium (1.8-2.4) mg/dl Total Bilirubin (0.2-1.0) mg/dL AST (15-37) U/L ALT (16-63) U/L Alkaline Phosphatase (46-116) U/L Troponin I (0.00-0.056) ng/mL C-Reactive Protein (<1.0) mg/dL NT-Pro-B Natriuret Pep (0-125) pg/mL Total Protein (6.4-8.2) g/dl Albumin (3.4-5.0) g/dl Globulin gm/dL Albumin/Globulin Ratio (1-2) Lipase (73-393) U/L Urine Color (Yellow) Urine Appearance (Clear) Urine pH (5.0-8.0) Ur Specific [place] (1.005-1.030) Urine Protein (Negative) Urine Glucose (UA) (Negative) Urine Ketones (Negative) Urine Occult Blood (Negative) Urine Nitrite (Negative) Urine Bilirubin (Negative) Urine Urobilinogen (0.2-1.0) Ur Leukocyte Esterase (Negative) Urine RBC (0-5) /hpf Urine WBC (0-5) /hpf Ur Squamous Epith Cells (0-5) /hpf Amorphous Sediment (NOT SEEN) /hpf Urine Bacteria (FEW) /hpf Hyaline Casts (0-5) /lpf Urine Mucus (FEW) /hpf Ur Random Creatinine (30.0-125.0) mg/dL U Random Total Protein (0.0-11.8) mg/dL Protein/Creatinin Ratio (0-149) mg/g Urine Opiates Screen (JIWEFE=071) Ur Buprenorphine Scrn (CUTOFF=10) Ur Oxycodone Screen (XUF0UD=072) Urine Methadone Screen (JOG6XH=400) Ur Propoxyphene Screen (CUKLAB=295) Ur Barbiturates Screen (OXIIVL=235) Ur Tricyclics Screen (QQCQMY=843) Ur Phencyclidine Scrn (CUTOFF=25) Ur Amphetamine Screen (XVSNQP=861) U Methamphetamines Scrn (NNOCWY=522) U Benzodiazepines Scrn (STELQV=446) U Cocaine Metab Screen (NGBVRM=656) U Marijuana (THC) Screen (CUTOFF=50) Ketones (0.0-0.3) mM Result Diagrams: 02/19/19 12:54 02/19/19 12:54 Problem List Initiated/Reviewed/Updated: Yes Orders Last 24hrs: Active Orders 24 hr Category Date Time Status Admission Status [Patient Status] [ADT] Routine ADT 02/19/19 17:29 Active Antiembolic Devices [RC] , Care 02/19/19 20:36 Active Blood Glucose Check, Bedside [RC] QIDACANDBED Care 02/19/19 20:31 Active Height and Weight [RC] 04 Care 02/19/19 20:01 Active Intake and Output [RC] 04,16 Care 02/19/19 20:01 Active RT Aerosol Therapy [RC] ASDIRECTED Care 02/19/19 20:02 Active VTE/DVT Education [RC] Care 02/19/19 20:01 Active Vital Signs [RC] Q4HR Care 02/19/19 20:01 Active Consult to Case Management/Counter Sales Person [CONS] Cons 02/19/19 20:01 Active Routine Consult to Spiritual Care [CONS] Routine Cons 02/19/19 20:01 Active OT Evaluation and Treatment [CONS] Routine Cons 02/19/19 20:01 Active PT Evaluation and Treatment [CONS] Routine Cons 02/19/19 20:01 Active Respiratory Care Assess and Treatment [CONS] Routine Cons 02/19/19 20:01 Active Consistent Carbohydrate Diet [DIET] Diet 02/20/19 Breakfast Active Heart Healthy Diet [DIET] Diet 02/19/19 Dinner Active Abdomen Ltd [US] Routine Exams 02/19/19 22:01 Ordered Chest 1V Frontal [CR] Stat Exams 02/19/19 12:40 Taken BASIC METABOLIC PANEL,BMP [CHEM] AM Lab 02/20/19 05:11 Ordered BASIC METABOLIC PANEL,BMP [CHEM] AM Lab 02/21/19 05:11 Ordered BASIC METABOLIC PANEL,BMP [CHEM] AM Lab 02/22/19 05:11 Ordered BASIC METABOLIC PANEL,BMP [CHEM] AM Lab 02/23/19 05:11 Ordered BASIC METABOLIC PANEL,BMP [CHEM] AM Lab 02/24/19 05:11 Ordered C DIFFICILE BY PCR W/NAP1 [MOLEC] Stat Lab 02/19/19 20:07 Ordered C-REACTIVE PROTEIN [CHEM] AM Lab 02/20/19 05:11 Ordered C-REACTIVE PROTEIN [CHEM] AM Lab 02/21/19 05:11 Ordered C-REACTIVE PROTEIN [CHEM] AM Lab 02/22/19 05:11 Ordered C-REACTIVE PROTEIN [CHEM] AM Lab 02/23/19 05:11 Ordered C-REACTIVE PROTEIN [CHEM] AM Lab 02/24/19 05:11 Ordered CBC WITH AUTO DIFF [HEME] AM Lab 02/20/19 05:11 Ordered CBC WITH AUTO DIFF [HEME] AM Lab 02/21/19 05:11 Ordered CBC WITH AUTO DIFF [HEME] AM Lab 02/22/19 05:11 Ordered CBC WITH AUTO DIFF [HEME] AM Lab 02/23/19 05:11 Ordered CBC WITH AUTO DIFF [HEME] AM Lab 02/24/19 05:11 Ordered CULTURE BLOOD [BC] Stat Lab 02/19/19 12:54 Received CULTURE BLOOD [BC] Stat Lab 02/19/19 13:04 Received CULTURE SPUTUM + SMEAR [RM] Stat Lab 02/19/19 20:01 Ordered CULTURE STOOL + SHIGATOX [RM] Stat Lab 02/19/19 12:42 Ordered FECAL LACTOFERRIN [MREF] Routine Lab 02/19/19 20:06 Ordered FOLIC ACID [CHEM] Routine Lab 02/19/19 22:26 Ordered MAGNESIUM [CHEM] AM Lab 02/20/19 05:11 Ordered MAGNESIUM [CHEM] AM Lab 02/21/19 05:11 Ordered MAGNESIUM [CHEM] AM Lab 02/22/19 05:11 Ordered MAGNESIUM [CHEM] AM Lab 02/23/19 05:11 Ordered MAGNESIUM [CHEM] AM Lab 02/24/19 05:11 Ordered PROCALCITONIN [REF] Stat Lab 02/19/19 18:50 Received RESPIRATORY PANEL PCR [MREF] Routine Lab 02/19/19 22:26 Ordered VITAMIN D,25-HYDROXY [CHEM] AM Lab 02/20/19 05:11 Ordered WBC, STOOL [OP] Stat Lab 02/19/19 12:42 Ordered Acetaminophen [Tylenol] Med 02/19/19 13:32 Active 650 mg PO Q4H PRN Albuterol/Ipratropium [DuoNeb 3.0-0.5 MG/3 ML] Med 02/19/19 20:01 Active 3 ml NEB Q4H PRN Bisacodyl [Dulcolax] Med 02/19/19 20:01 Active 5 mg PO DAILY PRN Dextrose 50% in Water Med 02/19/19 20:31 Active 50 ml IVPUSH ASDIRECTED PRN Docusate Sodium [Colace] Med 02/19/19 20:01 Active 100 mg PO BID PRN Docusate Sodium/Sennosides [Senna Plus] Med 02/19/19 20:01 Active 1 tab PO BID PRN Famotidine [Pepcid] Med 02/19/19 21:00 Active 20 mg PO BID Insulin Lispro [HumaLOG] Med 02/19/19 22:00 Active See Protocol SUBCUT QIDACANDBED Ketorolac [Toradol] Med 02/19/19 20:29 Active 15 mg IVPUSH Q6H PRN LORazepam [Ativan] Med 02/19/19 20:01 Active 0.5 mg IV Q6H PRN Lactated Ringers [Ringers, Lactated] 1,000 ml Med 02/19/19 20:15 Active IV ASDIRECTED MVI, Adult with Vitamin K [Infuvite Adult] 10 ml Med 02/20/19 09:00 Active Sodium Chloride 0.9% [Normal Saline] 500 ml IV DAILY Magnesium Sulfate/Water [Magnesium Sulfate in Water Med 02/19/19 20:29 Active Premix] 2 gm Premix Bag 1 bag IV ASDIRECTED Ondansetron [Zofran] Med 02/19/19 20:01 Active 4 mg IV Q6H PRN Pharmacy to Dose - Vancomycin Med 02/19/19 20:15 Ordered 1 dose .XX ASDIRECTED Promethazine [Phenergan] 6.25 mg Med 02/19/19 20:01 Active Sodium Chloride 0.9% [Normal Saline] 50 ml IV Q6H Thiamine [Vitamin B-1] Med 02/20/19 09:00 Active 100 mg IM DAILY Vancomycin 1 gm Med 02/19/19 21:00 Active Vancomycin 250 mg Sodium Chloride 0.9% [Normal Saline] 500 ml IV Q24H hydrALAZINE [Apresoline] Med 02/19/19 20:29 Active 20 mg IVPUSH Q4H PRN Blood Culture x2 Reflex Set [OM.PC] Stat Oth 02/19/19 12:40 Ordered Isolation [COMM] Stat Oth 02/19/19 20:07 Ordered SCD [Sequential Compression Device] [OM.PC] Routine Oth 02/19/19 20:36 Ordered Resuscitation Status Routine Resus Stat 02/19/19 20:01 Ordered Medication Orders Acetaminophen (Tylenol) 650 mg PO Q4H PRN PRN Reason: Pain Last Admin: 02/19/19 13:51 Dose: 650 mg Albuterol/Ipratropium (Duoneb 3.0-0.5 Mg/3 Ml) 3 ml NEB Q4H PRN PRN Reason: Shortness Of Breath/wheezing Bisacodyl (Dulcolax) 5 mg PO DAILY PRN PRN Reason: Constipation Dextrose/Water (Dextrose 50% In Water) 50 ml IVPUSH ASDIRECTED PRN PRN Reason: Hypoglycemia Docusate Sodium (Colace) 100 mg PO BID PRN PRN Reason: Constipation Famotidine (Pepcid) 20 mg PO BID [facility] Last Admin: 02/19/19 21:55 Dose: 20 mg Hydralazine HCl (Apresoline) 20 mg IVPUSH Q4H PRN PRN Reason: Hypertension Promethazine HCl 6.25 mg/ (Sodium Chloride) 50.25 mls @ 100 mls/hr IV Q6H PRN PRN Reason: Nausea/Vomiting Lactated Ringer's (Ringers, Lactated) 1,000 mls @ 125 mls/hr IV ASDIRECTED [facility] Stop: 08/26/19 04:14 Last Admin: 02/19/19 21:43 Dose: 125 mls/hr Magnesium Sulfate 2 gm/ Premix 50 mls @ 25 mls/hr IV ASDIRECTED PRN PRN Reason: Other Vancomycin HCl 1 gm/Vancomycin HCl 250 mg/ Sodium Chloride 500 mls @ 333.333 mls/hr IV Q24H [facility] Last Admin: 02/19/19 21:56 Dose: 333.333 mls/hr Multivitamins/Minerals 10 ml/ (Sodium Chloride) 510 mls @ 255 mls/hr IV DAILY [facility] Stop: 02/23/19 10:59 Insulin Human Lispro (Humalog) 0 unit SUBCUT QIDACANDBED [facility]; Protocol Last Admin: 02/19/19 21:58 Dose: 3 units Ketorolac Tromethamine (Toradol) 15 mg IVPUSH Q6H PRN PRN Reason: Pain (moderate 4-6) Lorazepam (Ativan) 0.5 mg IV Q6H PRN PRN Reason: Anxiety Ondansetron HCl (Zofran) 4 mg IV Q6H PRN PRN Reason: Nausea/Vomiting Senna/Docusate Sodium (Senna Plus) 1 tab PO BID PRN PRN Reason: Constipation Thiamine HCl (Vitamin B-1) 100 mg IM DAILY [facility] Stop: 02/22/19 09:01 Vancomycin HCl (Pharmacy To Dose - Vancomycin) 1 dose .XX ASDIRECTED [facility] Assessment/Plan Comment:: Assessment/Plan: Acute: SIRS/Fever of Unknown Origin - Temp of 38.4C, RR of 20s-30s, LA of 2.5 - UA and CXR negative - PRN anti-pyretic and Supportive Care Probable Gastro-enteritis - Watery diarrhea with nausea, vomiting, and abdominal cramps - Stool studies, C. 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
[2019-02-19] MEDS: Lactated Ringers 1,000 ML IV SCH (23:07)
[2019-02-20 06:06] LABS: VITAMIN D,25-HYDROXY 45.1 ng/ml (30.0-100.0)
[2019-02-20] MEDS: Lactated Ringers 1,000 ML IV SCH (07:03)
[2019-02-20] MEDS ORDERED: Magnesium Sulfate/Water 2 GM in Premix Bag 1 BAG IV ONE (07:29)
[2019-02-20] MEDS ORDERED: Sodium Chloride 0.9% 500 ML ONE (08:24)
[2019-02-20] MEDS: Insulin Lispro 100 Units/ML 3 ML Vial SUBCUT SCH ×4 (08:47→22:38)
[2019-02-20] MEDS: Famotidine 20 MG Tab PO SCH ×2 (08:47→21:50)
--- NOTE | 2019-02-20 08:49 | US ---
Limited abdominal ultrasound: Multiple real-time images of the upper right abdomen were obtained. Comparison: Previous abdominal and pelvic CT study of 02/19/19. Findings: No discrete abnormality is identified within the visualized pancreas. Liver shows no focal abnormality. Multiple small layering gallstones are seen within the gallbladder. No gallbladder wall thickening or biliary duct dilatation is seen. Right kidney shows 2 cysts measuring 1.8 cm and 2.4 cm. No hydronephrosis is seen within the right kidney. Inferior vena cava space. Portal vein shows normal hepatopedal flow. Partially visualized aortic aneurysm with AP dimension of 5.3 cm. Impression: 1. Multiple small layering gallstones within the gallbladder. This correlates to the questionable finding that was seen on previous CT exam. 2. No gallbladder wall thickening or biliary duct dilatation is seen. 3. 2 renal cysts. 4. Partially visualized abdominal aortic aneurysm. Diagnostic code #3
[2019-02-20] MEDS ORDERED: MVI, Adult with Vitamin K 10 ML SDV IV SCH (09:00)
[2019-02-20] MEDS ORDERED: Enoxaparin 30 MG/0.3 ML Syringe SUBCUT SCH (09:00)
[2019-02-20] MEDS: Thiamine 200 MG/2 ML MDV IM SCH (09:09)
[2019-02-20] MEDS: MVI, Adult with Vitamin K 10 ML in Sodium Chloride 0.9% 500 ML IV SCH ×2 (09:13)
--- NOTE | 2019-02-20 10:00 | PCM.PN ---
- General Info Date of Service: 02/20/19 Admission Dx/Problem (Free Text): Admission Diagnosis/Problem Admission Diagnosis/Problem Bacteremia Subjective Update: Follow Up Functional Status: Reports: Pain Controlled, Tolerating Diet, Ambulating, Urinating, New Symptoms - Review of Systems General: Denies: Fever, Weakness, Fatigue, Malaise, Chills, Night Sweats HEENT: Denies: No Symptoms Pulmonary: Denies: Shortness of Breath, Pleuritic Chest Pain, Cough, Sputum Cardiovascular: Denies: Chest Pain, Palpitations, Dyspnea on Exertion, Orthopnea , Lightheadedness Gastrointestinal: Denies: Abdominal Pain, Nausea, Vomiting Genitourinary: Reports: No Symptoms Musculoskeletal: Reports: No Symptoms Skin: Denies: Cyanosis, Diaphoresis Neurological: Denies: Dizziness, Trouble Speaking, Weakness, Gait Disturbance Psychiatric: Denies: Depression, Cravings, Homicidal Ideation Systems Review Comment:: No overnight issues. He rested fairly well but complaints of body aches and not feeling well. He has not had diarrhea or emesis since last evening. His heart heart drops in the 30-40s this morning but he is asymptomatic. He complaints of the nurses. He is not as cranky as last night. His WBC slightly went up and his Ca and Mg levels were mildly low. - Patient Data Vitals - Most Recent: Last Vital Signs Temp 37.2 C 02/20/19 04:42 Pulse 66 02/20/19 04:42 Resp 16 02/20/19 04:42 BP 139/67 02/20/19 04:42 Pulse Ox 94 L 02/20/19 04:42 Orthostatic Blood Pressure [ 102/66 Standing] Orthostatic Blood Pressure [ 124/73 Sitting] Orthostatic Blood Pressure [ 134/103 Supine] Weight - Most Recent: 83.779 kg I&O - Last 24 Hours: Intake & Output 02/19/19 02/20/19 02/20/19 22:59 06:59 14:59 Intake Total 2315 Output Total 600 Balance 1715 Imaging Impressions - Last 24 Hours: EKG shows sinus rhythm with a HR of 52 and low voltage in all leads Lab Results Last 24 Hours: Laboratory Results - last 24 hr 02/19/19 02/19/19 02/19/19 Range/Units 12:54 12:54 12:54 WBC 9.53 H (4.23-9.07) K/mm3 RBC 5.10 (4.63-6.08) M/mm3 Hgb 14.6 D (13.7-17.5) gm/L Hct 44.4 (40.1-51.0) % MCV 87.1 (79.0-92.2) fl MCH 28.6 (25.7-32.2) pg MCHC 32.9 (32.2-35.5) g/dl RDW Std Deviation 44.9 H (35.1-43.9) fL Plt Count 143 L D (163-337) K/mm3 MPV 12.3 (9.4-12.3) fl Neut % (Auto) (34.0-67.9) % Lymph % (Auto) (21.8-53.1) % [place] % (Auto) (5.3-12.2) % Eos % (Auto) (0.8-7.0) Baso % (Auto) (0.1-1.2) % Neut # (Auto) (1.78-5.38) K/mm3 Lymph # (Auto) (1.32-3.57) K/mm3 [place] # (Auto) (0.30-0.82) K/mm3 Eos # (Auto) (0.04-0.54) K/mm3 Baso # (Auto) (0.01-0.08) K/mm3 Neutrophils % (Manual) 84 H (40-60) % Band Neutrophils % 0 (0-10) % Lymphocytes % (Manual) 13 L (20-40) % Atypical Lymphs % 0 % Monocytes % (Manual) 3 (2-10) % Eosinophils % (Manual) 0 L (0.8-7.0) % Basophils % (Manual) 0 L (0.2-1.2) Platelet Estimate Adequate RBC Morph Comment Normal ESR 27 H (0-15) mm/hr PT 11.4 (9.7-12.0) SECONDS INR 1.05 Sodium (136-145) mEq/L Potassium (3.5-5.1) mEq/L Chloride (98-107) mEq/L Carbon Dioxide (21-32) mEq/L Anion Gap (5-15) BUN (7-18) mg/dL Creatinine (0.7-1.3) mg/dL Est Cr Clr Drug Dosing mL/min Estimated GFR (MDRD) (>60) mL/min BUN/Creatinine Ratio (14-18) Glucose (83-115) mg/dL POC Glucose (83-110) mg/dL Hemoglobin A1c (4.50-6.20) % Serum Osmolality (280-300) mosm/kg Lactic Acid (0.4-2.0) mmol/L Calcium (8.5-10.1) mg/dL Magnesium (1.8-2.4) mg/dl Total Bilirubin (0.2-1.0) mg/dL AST (15-37) U/L ALT (16-63) U/L Alkaline Phosphatase (46-116) U/L Troponin I (0.00-0.056) ng/mL C-Reactive Protein (<1.0) mg/dL NT-Pro-B Natriuret Pep (0-125) pg/mL Total Protein (6.4-8.2) g/dl Albumin (3.4-5.0) g/dl Globulin gm/dL Albumin/Globulin Ratio (1-2) Lipase (73-393) U/L Vitamin D 25-Hydroxy (30.0-100.0) ng/ml Folate (8.6-58.9) ng/mL Urine Color (Yellow) Urine Appearance (Clear) Urine pH (5.0-8.0) Ur Specific [place] (1.005-1.030) Urine Protein (Negative) Urine Glucose (UA) (Negative) Urine Ketones (Negative) Urine Occult Blood (Negative) Urine Nitrite (Negative) Urine Bilirubin (Negative) Urine Urobilinogen (0.2-1.0) Ur Leukocyte Esterase (Negative) Urine RBC (0-5) /hpf Urine WBC (0-5) /hpf Ur Squamous Epith Cells (0-5) /hpf Amorphous Sediment (NOT SEEN) /hpf Urine Bacteria (FEW) /hpf Hyaline Casts (0-5) /lpf Urine Mucus (FEW) /hpf Ur Random Creatinine (30.0-125.0) mg/dL U Random Total Protein (0.0-11.8) mg/dL Protein/Creatinin Ratio (0-149) mg/g Urine Opiates Screen (LVAUCZ=054) Ur Buprenorphine Scrn (CUTOFF=10) Ur Oxycodone Screen (BDH5HX=645) Urine Methadone Screen (BBQ8GZ=695) Ur Propoxyphene Screen (LUMVVI=558) Ur Barbiturates Screen (ZLKSIU=091) Ur Tricyclics Screen (XVMZVG=874) Ur Phencyclidine Scrn (CUTOFF=25) Ur Amphetamine Screen (AQTVTE=524) U Methamphetamines Scrn (RCBUHG=480) U Benzodiazepines Scrn (FUARJR=078) U Cocaine Metab Screen (QXLHBC=111) U Marijuana (THC) Screen (CUTOFF=50) Ketones (0.0-0.3) mM 02/19/19 02/19/19 02/19/19 Range/Units 12:54 12:54 12:54 WBC (4.23-9.07) K/mm3 RBC (4.63-6.08) M/mm3 Hgb (13.7-17.5) gm/L Hct (40.1-51.0) % MCV (79.0-92.2) fl MCH (25.7-32.2) pg MCHC (32.2-35.5) g/dl RDW Std Deviation (35.1-43.9) fL Plt Count (163-337) K/mm3 MPV (9.4-12.3) fl Neut % (Auto) (34.0-67.9) % Lymph % (Auto) (21.8-53.1) % [place] % (Auto) (5.3-12.2) % Eos % (Auto) (0.8-7.0) Baso % (Auto) (0.1-1.2) % Neut # (Auto) (1.78-5.38) K/mm3 Lymph # (Auto) (1.32-3.57) K/mm3 [place] # (Auto) (0.30-0.82) K/mm3 Eos # (Auto) (0.04-0.54) K/mm3 Baso # (Auto) (0.01-0.08) K/mm3 Neutrophils % (Manual) (40-60) % Band Neutrophils % (0-10) % Lymphocytes % (Manual) (20-40) % Atypical Lymphs % % Monocytes % (Manual) (2-10) % Eosinophils % (Manual) (0.8-7.0) % Basophils % (Manual) (0.2-1.2) Platelet Estimate RBC Morph Comment ESR (0-15) mm/hr PT (9.7-12.0) SECONDS INR Sodium 140 (136-145) mEq/L Potassium 4.3 (3.5-5.1) mEq/L Chloride 104 (98-107) mEq/L Carbon Dioxide 25 (21-32) mEq/L Anion Gap 15.3 H (5-15) BUN 23 H (7-18) mg/dL Creatinine 1.6 H (0.7-1.3) mg/dL Est Cr Clr Drug Dosing 45.13 mL/min Estimated GFR (MDRD) 43 (>60) mL/min BUN/Creatinine Ratio 14.4 (14-18) Glucose 314 H (83-115) mg/dL POC Glucose (83-110) mg/dL Hemoglobin A1c (4.50-6.20) % Serum Osmolality 308 H (280-300) mosm/kg Lactic Acid 2.5 H (0.4-2.0) mmol/L Calcium 9.0 (8.5-10.1) mg/dL Magnesium 1.9 (1.8-2.4) mg/dl Total Bilirubin 0.9 (0.2-1.0) mg/dL AST 15 (15-37) U/L ALT 28 (16-63) U/L Alkaline Phosphatase 57 (46-116) U/L Troponin I < 0.017 (0.00-0.056) ng/mL C-Reactive Protein 0.3 (<1.0) mg/dL NT-Pro-B Natriuret Pep 219 H (0-125) pg/mL Total Protein 7.5 (6.4-8.2) g/dl Albumin 3.3 L (3.4-5.0) g/dl Globulin 4.2 gm/dL Albumin/Globulin Ratio 0.8 L (1-2) Lipase 95 (73-393) U/L Vitamin D 25-Hydroxy (30.0-100.0) ng/ml Folate (8.6-58.9) ng/mL Urine Color (Yellow) Urine Appearance (Clear) Urine pH (5.0-8.0) Ur Specific [place] (1.005-1.030) Urine Protein (Negative) Urine Glucose (UA) (Negative) Urine Ketones (Negative) Urine Occult Blood (Negative) Urine Nitrite (Negative) Urine Bilirubin (Negative) Urine Urobilinogen (0.2-1.0) Ur Leukocyte Esterase (Negative) Urine RBC (0-5) /hpf Urine WBC (0-5) /hpf Ur Squamous Epith Cells (0-5) /hpf Amorphous Sediment (NOT SEEN) /hpf Urine Bacteria (FEW) /hpf Hyaline Casts (0-5) /lpf Urine Mucus (FEW) /hpf Ur Random Creatinine (30.0-125.0) mg/dL U Random Total Protein (0.0-11.8) mg/dL Protein/Creatinin Ratio (0-149) mg/g Urine Opiates Screen (JFEZHD=522) Ur Buprenorphine Scrn (CUTOFF=10) Ur Oxycodone Screen (JUC6EM=139) Urine Methadone Screen (JMK9WY=251) Ur Propoxyphene Screen (HCXEAI=844) Ur Barbiturates Screen (LPJJUN=911) Ur Tricyclics Screen (TQWMKE=730) Ur Phencyclidine Scrn (CUTOFF=25) Ur Amphetamine Screen (YEYFUD=797) U Methamphetamines Scrn (NVFKEB=441) U Benzodiazepines Scrn (FBXTVQ=266) U Cocaine Metab Screen (WSYCFF=594) U Marijuana (THC) Screen (CUTOFF=50) Ketones (0.0-0.3) mM 02/19/19 02/19/19 02/19/19 Range/Units 12:54 12:54 12:57 WBC (4.23-9.07) K/mm3 RBC (4.63-6.08) M/mm3 Hgb (13.7-17.5) gm/L Hct (40.1-51.0) % MCV (79.0-92.2) fl MCH (25.7-32.2) pg MCHC (32.2-35.5) g/dl RDW Std Deviation (35.1-43.9) fL Plt Count (163-337) K/mm3 MPV (9.4-12.3) fl Neut % (Auto) (34.0-67.9) % Lymph % (Auto) (21.8-53.1) % [place] % (Auto) (5.3-12.2) % Eos % (Auto) (0.8-7.0) Baso % (Auto) (0.1-1.2) % Neut # (Auto) (1.78-5.38) K/mm3 Lymph # (Auto) (1.32-3.57) K/mm3 [place] # (Auto) (0.30-0.82) K/mm3 Eos # (Auto) (0.04-0.54) K/mm3 Baso # (Auto) (0.01-0.08) K/mm3 Neutrophils % (Manual) (40-60) % Band Neutrophils % (0-10) % Lymphocytes % (Manual) (20-40) % Atypical Lymphs % % Monocytes % (Manual) (2-10) % Eosinophils % (Manual) (0.8-7.0) % Basophils % (Manual) (0.2-1.2) Platelet Estimate RBC Morph Comment ESR (0-15) mm/hr PT (9.7-12.0) SECONDS INR Sodium (136-145) mEq/L Potassium (3.5-5.1) mEq/L Chloride (98-107) mEq/L Carbon Dioxide (21-32) mEq/L Anion Gap (5-15) BUN (7-18) mg/dL Creatinine (0.7-1.3) mg/dL Est Cr Clr Drug Dosing mL/min Estimated GFR (MDRD) (>60) mL/min BUN/Creatinine Ratio (14-18) Glucose (83-115) mg/dL POC Glucose 268 H (83-110) mg/dL Hemoglobin A1c 8.70 H (4.50-6.20) % Serum Osmolality (280-300) mosm/kg Lactic Acid (0.4-2.0) mmol/L Calcium (8.5-10.1) mg/dL Magnesium (1.8-2.4) mg/dl Total Bilirubin (0.2-1.0) mg/dL AST (15-37) U/L ALT (16-63) U/L Alkaline Phosphatase (46-116) U/L Troponin I (0.00-0.056) ng/mL C-Reactive Protein (<1.0) mg/dL NT-Pro-B Natriuret Pep (0-125) pg/mL Total Protein (6.4-8.2) g/dl Albumin (3.4-5.0) g/dl Globulin gm/dL Albumin/Globulin Ratio (1-2) Lipase (73-393) U/L Vitamin D 25-Hydroxy (30.0-100.0) ng/ml Folate (8.6-58.9) ng/mL Urine Color (Yellow) Urine Appearance (Clear) Urine pH (5.0-8.0) Ur Specific [place] (1.005-1.030) Urine Protein (Negative) Urine Glucose (UA) (Negative) Urine Ketones (Negative) Urine Occult Blood (Negative) Urine Nitrite (Negative) Urine Bilirubin (Negative) Urine Urobilinogen (0.2-1.0) Ur Leukocyte Esterase (Negative) Urine RBC (0-5) /hpf Urine WBC (0-5) /hpf Ur Squamous Epith Cells (0-5) /hpf Amorphous Sediment (NOT SEEN) /hpf Urine Bacteria (FEW) /hpf Hyaline Casts (0-5) /lpf Urine Mucus (FEW) /hpf Ur Random Creatinine (30.0-125.0) mg/dL U Random Total Protein (0.0-11.8) mg/dL Protein/Creatinin Ratio (0-149) mg/g Urine Opiates Screen (ZLCAVZ=687) Ur Buprenorphine Scrn (CUTOFF=10) Ur Oxycodone Screen (FQY9PL=385) Urine Methadone Screen (YNH5TN=984) Ur Propoxyphene Screen (DFDETE=233) Ur Barbiturates Screen (XCDWEC=271) Ur Tricyclics Screen (GIOKLD=876) Ur Phencyclidine Scrn (CUTOFF=25) Ur Amphetamine Screen (VQDLUN=203) U Methamphetamines Scrn (MFFSBQ=543) U Benzodiazepines Scrn (VEQAIB=042) U Cocaine Metab Screen (UAKFJB=382) U Marijuana (THC) Screen (CUTOFF=50) Ketones 0.2 (0.0-0.3) mM 02/19/19 02/19/19 02/19/19 Range/Units 14:55 14:55 14:55 WBC (4.23-9.07) K/mm3 RBC (4.63-6.08) M/mm3 Hgb (13.7-17.5) gm/L Hct (40.1-51.0) % MCV (79.0-92.2) fl MCH (25.7-32.2) pg MCHC (32.2-35.5) g/dl RDW Std Deviation (35.1-43.9) fL Plt Count (163-337) K/mm3 MPV (9.4-12.3) fl Neut % (Auto) (34.0-67.9) % Lymph % (Auto) (21.8-53.1) % [place] % (Auto) (5.3-12.2) % Eos % (Auto) (0.8-7.0) Baso % (Auto) (0.1-1.2) % Neut # (Auto) (1.78-5.38) K/mm3 Lymph # (Auto) (1.32-3.57) K/mm3 [place] # (Auto) (0.30-0.82) K/mm3 Eos # (Auto) (0.04-0.54) K/mm3 Baso # (Auto) (0.01-0.08) K/mm3 Neutrophils % (Manual) (40-60) % Band Neutrophils % (0-10) % Lymphocytes % (Manual) (20-40) % Atypical Lymphs % % Monocytes % (Manual) (2-10) % Eosinophils % (Manual) (0.8-7.0) % Basophils % (Manual) (0.2-1.2) Platelet Estimate RBC Morph Comment ESR (0-15) mm/hr PT (9.7-12.0) SECONDS INR Sodium (136-145) mEq/L Potassium (3.5-5.1) mEq/L Chloride (98-107) mEq/L Carbon Dioxide (21-32) mEq/L Anion Gap (5-15) BUN (7-18) mg/dL Creatinine (0.7-1.3) mg/dL Est Cr Clr Drug Dosing mL/min Estimated GFR (MDRD) (>60) mL/min BUN/Creatinine Ratio (14-18) Glucose (83-115) mg/dL POC Glucose (83-110) mg/dL Hemoglobin A1c (4.50-6.20) % Serum Osmolality (280-300) mosm/kg Lactic Acid (0.4-2.0) mmol/L Calcium (8.5-10.1) mg/dL Magnesium (1.8-2.4) mg/dl Total Bilirubin (0.2-1.0) mg/dL AST (15-37) U/L ALT (16-63) U/L Alkaline Phosphatase (46-116) U/L Troponin I (0.00-0.056) ng/mL C-Reactive Protein (<1.0) mg/dL NT-Pro-B Natriuret Pep (0-125) pg/mL Total Protein (6.4-8.2) g/dl Albumin (3.4-5.0) g/dl Globulin gm/dL Albumin/Globulin Ratio (1-2) Lipase (73-393) U/L Vitamin D 25-Hydroxy (30.0-100.0) ng/ml Folate (8.6-58.9) ng/mL Urine Color Dark yellow (Yellow) Urine Appearance Clear (Clear) Urine pH 5.5 (5.0-8.0) Ur Specific [place] > or = 1.030 (1.005-1.030) Urine Protein 1+ H (Negative) Urine Glucose (UA) 1+ H (Negative) Urine Ketones Trace H (Negative) Urine Occult Blood Negative (Negative) Urine Nitrite Negative (Negative) Urine Bilirubin Negative (Negative) Urine Urobilinogen 0.2 (0.2-1.0) Ur Leukocyte Esterase Negative (Negative) Urine RBC 0-5 (0-5) /hpf Urine WBC 0-5 (0-5) /hpf Ur Squamous Epith Cells 0-5 (0-5) /hpf Amorphous Sediment Few H (NOT SEEN) /hpf Urine Bacteria Few (FEW) /hpf Hyaline Casts 0-5 (0-5) /lpf Urine Mucus Few (FEW) /hpf Ur Random Creatinine 281.4 H (30.0-125.0) mg/dL U Random Total Protein 29.6 H (0.0-11.8) mg/dL Protein/Creatinin Ratio 105.2 (0-149) mg/g Urine Opiates Screen Negative (DJMFLT=823) Ur Buprenorphine Scrn Negative (CUTOFF=10) Ur Oxycodone Screen Negative (PIO3CT=368) Urine Methadone Screen Negative (KHC5TX=926) Ur Propoxyphene Screen Negative (OMVCLL=338) Ur Barbiturates Screen Negative (BFPORU=467) Ur Tricyclics Screen Negative (ZSGZDV=334) Ur Phencyclidine Scrn Negative (CUTOFF=25) Ur Amphetamine Screen Negative (TUFREO=635) U Methamphetamines Scrn Negative (UBNWSB=898) U Benzodiazepines Scrn Negative (QMXCGF=715) U Cocaine Metab Screen Negative (AACMIG=344) U Marijuana (THC) Screen Negative (CUTOFF=50) Ketones (0.0-0.3) mM 02/19/19 02/19/19 02/19/19 Range/Units 17:51 18:50 18:50 WBC (4.23-9.07) K/mm3 RBC (4.63-6.08) M/mm3 Hgb (13.7-17.5) gm/L Hct (40.1-51.0) % MCV (79.0-92.2) fl MCH (25.7-32.2) pg MCHC (32.2-35.5) g/dl RDW Std Deviation (35.1-43.9) fL Plt Count (163-337) K/mm3 MPV (9.4-12.3) fl Neut % (Auto) (34.0-67.9) % Lymph % (Auto) (21.8-53.1) % [place] % (Auto) (5.3-12.2) % Eos % (Auto) (0.8-7.0) Baso % (Auto) (0.1-1.2) % Neut # (Auto) (1.78-5.38) K/mm3 Lymph # (Auto) (1.32-3.57) K/mm3 [place] # (Auto) (0.30-0.82) K/mm3 Eos # (Auto) (0.04-0.54) K/mm3 Baso # (Auto) (0.01-0.08) K/mm3 Neutrophils % (Manual) (40-60) % Band Neutrophils % (0-10) % Lymphocytes % (Manual) (20-40) % Atypical Lymphs % % Monocytes % (Manual) (2-10) % Eosinophils % (Manual) (0.8-7.0) % Basophils % (Manual) (0.2-1.2) Platelet Estimate RBC Morph Comment ESR (0-15) mm/hr PT (9.7-12.0) SECONDS INR Sodium (136-145) mEq/L Potassium (3.5-5.1) mEq/L Chloride (98-107) mEq/L Carbon Dioxide (21-32) mEq/L Anion Gap (5-15) BUN (7-18) mg/dL Creatinine (0.7-1.3) mg/dL Est Cr Clr Drug Dosing mL/min Estimated GFR (MDRD) (>60) mL/min BUN/Creatinine Ratio (14-18) Glucose (83-115) mg/dL POC Glucose 185 H (83-110) mg/dL Hemoglobin A1c (4.50-6.20) % Serum Osmolality (280-300) mosm/kg Lactic Acid 1.3 (0.4-2.0) mmol/L Calcium (8.5-10.1) mg/dL Magnesium (1.8-2.4) mg/dl Total Bilirubin (0.2-1.0) mg/dL AST (15-37) U/L ALT (16-63) U/L Alkaline Phosphatase (46-116) U/L Troponin I (0.00-0.056) ng/mL C-Reactive Protein < 0.2 (<1.0) mg/dL NT-Pro-B Natriuret Pep (0-125) pg/mL Total Protein (6.4-8.2) g/dl Albumin (3.4-5.0) g/dl Globulin gm/dL Albumin/Globulin Ratio (1-2) Lipase (73-393) U/L Vitamin D 25-Hydroxy (30.0-100.0) ng/ml Folate (8.6-58.9) ng/mL Urine Color (Yellow) Urine Appearance (Clear) Urine pH (5.0-8.0) Ur Specific [place] (1.005-1.030) Urine Protein (Negative) Urine Glucose (UA) (Negative) Urine Ketones (Negative) Urine Occult Blood (Negative) Urine Nitrite (Negative) Urine Bilirubin (Negative) Urine Urobilinogen (0.2-1.0) Ur Leukocyte Esterase (Negative) Urine RBC (0-5) /hpf Urine WBC (0-5) /hpf Ur Squamous Epith Cells (0-5) /hpf Amorphous Sediment (NOT SEEN) /hpf Urine Bacteria (FEW) /hpf Hyaline Casts (0-5) /lpf Urine Mucus (FEW) /hpf Ur Random Creatinine (30.0-125.0) mg/dL U Random Total Protein (0.0-11.8) mg/dL Protein/Creatinin Ratio (0-149) mg/g Urine Opiates Screen (SGRZSS=083) Ur Buprenorphine Scrn (CUTOFF=10) Ur Oxycodone Screen (LBG9DX=383) Urine Methadone Screen (EJE4UL=996) Ur Propoxyphene Screen (FSGIMI=305) Ur Barbiturates Screen (JOVVRT=397) Ur Tricyclics Screen (JSIHGA=198) Ur Phencyclidine Scrn (CUTOFF=25) Ur Amphetamine Screen (GCNIYA=331) U Methamphetamines Scrn (WALCDI=988) U Benzodiazepines Scrn (KFXAVX=176) U Cocaine Metab Screen (KTPUKV=968) U Marijuana (THC) Screen (CUTOFF=50) Ketones (0.0-0.3) mM 02/19/19 02/19/19 02/20/19 Range/Units 21:47 22:43 05:08 WBC 10.26 H (4.23-9.07) K/mm3 RBC 4.27 L (4.63-6.08) M/mm3 Hgb 12.3 L D (13.7-17.5) gm/L Hct 37.5 L (40.1-51.0) % MCV 87.8 (79.0-92.2) fl MCH 28.8 (25.7-32.2) pg MCHC 32.8 (32.2-35.5) g/dl RDW Std Deviation 43.8 (35.1-43.9) fL Plt Count 116 L (163-337) K/mm3 MPV 11.9 (9.4-12.3) fl Neut % (Auto) 72.0 H (34.0-67.9) % Lymph % (Auto) 17.8 L (21.8-53.1) % [place] % (Auto) 9.2 (5.3-12.2) % Eos % (Auto) 0.5 L (0.8-7.0) Baso % (Auto) 0.2 (0.1-1.2) % Neut # (Auto) 7.39 H (1.78-5.38) K/mm3 Lymph # (Auto) 1.83 (1.32-3.57) K/mm3 [place] # (Auto) 0.94 H (0.30-0.82) K/mm3 Eos # (Auto) 0.05 (0.04-0.54) K/mm3 Baso # (Auto) 0.02 (0.01-0.08) K/mm3 Neutrophils % (Manual) (40-60) % Band Neutrophils % (0-10) % Lymphocytes % (Manual) (20-40) % Atypical Lymphs % % Monocytes % (Manual) (2-10) % Eosinophils % (Manual) (0.8-7.0) % Basophils % (Manual) (0.2-1.2) Platelet Estimate RBC Morph Comment ESR (0-15) mm/hr PT (9.7-12.0) SECONDS INR Sodium (136-145) mEq/L Potassium (3.5-5.1) mEq/L Chloride (98-107) mEq/L Carbon Dioxide (21-32) mEq/L Anion Gap (5-15) BUN (7-18) mg/dL Creatinine (0.7-1.3) mg/dL Est Cr Clr Drug Dosing mL/min Estimated GFR (MDRD) (>60) mL/min BUN/Creatinine Ratio (14-18) Glucose (83-115) mg/dL POC Glucose 163 H (83-110) mg/dL Hemoglobin A1c (4.50-6.20) % Serum Osmolality (280-300) mosm/kg Lactic Acid (0.4-2.0) mmol/L Calcium (8.5-10.1) mg/dL Magnesium (1.8-2.4) mg/dl Total Bilirubin (0.2-1.0) mg/dL AST (15-37) U/L ALT (16-63) U/L Alkaline Phosphatase (46-116) U/L Troponin I (0.00-0.056) ng/mL C-Reactive Protein (<1.0) mg/dL NT-Pro-B Natriuret Pep (0-125) pg/mL Total Protein (6.4-8.2) g/dl Albumin (3.4-5.0) g/dl Globulin gm/dL Albumin/Globulin Ratio (1-2) Lipase (73-393) U/L Vitamin D 25-Hydroxy (30.0-100.0) ng/ml Folate 14.4 (8.6-58.9) ng/mL Urine Color (Yellow) Urine Appearance (Clear) Urine pH (5.0-8.0) Ur Specific [place] (1.005-1.030) Urine Protein (Negative) Urine Glucose (UA) (Negative) Urine Ketones (Negative) Urine Occult Blood (Negative) Urine Nitrite (Negative) Urine Bilirubin (Negative) Urine Urobilinogen (0.2-1.0) Ur Leukocyte Esterase (Negative) Urine RBC (0-5) /hpf Urine WBC (0-5) /hpf Ur Squamous Epith Cells (0-5) /hpf Amorphous Sediment (NOT SEEN) /hpf Urine Bacteria (FEW) /hpf Hyaline Casts (0-5) /lpf Urine Mucus (FEW) /hpf Ur Random Creatinine (30.0-125.0) mg/dL U Random Total Protein (0.0-11.8) mg/dL Protein/Creatinin Ratio (0-149) mg/g Urine Opiates Screen (JATNGZ=090) Ur Buprenorphine Scrn (CUTOFF=10) Ur Oxycodone Screen (SSA1HF=008) Urine Methadone Screen (SKB7FU=352) Ur Propoxyphene Screen (DNCJNY=296) Ur Barbiturates Screen (ZBWXOL=998) Ur Tricyclics Screen (KJXNZD=644) Ur Phencyclidine Scrn (CUTOFF=25) Ur Amphetamine Screen (GMFNDH=931) U Methamphetamines Scrn (HWUHBU=027) U Benzodiazepines Scrn (RCHRGZ=578) U Cocaine Metab Screen (YPAWFR=603) U Marijuana (THC) Screen (CUTOFF=50) Ketones (0.0-0.3) mM 02/20/ Range/Units 05:08 WBC (4.23-9.07) K/mm3 RBC (4.63-6.08) M/mm3 Hgb (13.7-17.5) gm/L Hct (40.1-51.0) % MCV (79.0-92.2) fl MCH (25.7-32.2) pg MCHC (32.2-35.5) g/dl RDW Std Deviation (35.1-43.9) fL Plt Count (163-337) K/mm3 MPV (9.4-12.3) fl Neut % (Auto) (34.0-67.9) % Lymph % (Auto) (21.8-53.1) % [place] % (Auto) (5.3-12.2) % Eos % (Auto) (0.8-7.0) Baso % (Auto) (0.1-1.2) % Neut # (Auto) (1.78-5.38) K/mm3 Lymph # (Auto) (1.32-3.57) K/mm3 [place] # (Auto) (0.30-0.82) K/mm3 Eos # (Auto) (0.04-0.54) K/mm3 Baso # (Auto) (0.01-0.08) K/mm3 Neutrophils % (Manual) (40-60) % Band Neutrophils % (0-10) % Lymphocytes % (Manual) (20-40) % Atypical Lymphs % % Monocytes % (Manual) (2-10) % Eosinophils % (Manual) (0.8-7.0) % Basophils % (Manual) (0.2-1.2) Platelet Estimate RBC Morph Comment ESR (0-15) mm/hr PT (9.7-12.0) SECONDS INR Sodium 139 (136-145) mEq/L Potassium 3.8 (3.5-5.1) mEq/L Chloride 109 H (98-107) mEq/L Carbon Dioxide 23 (21-32) mEq/L Anion Gap 10.8 (5-15) BUN 17 (7-18) mg/dL Creatinine 1.1 (0.7-1.3) mg/dL Est Cr Clr Drug Dosing 65.65 mL/min Estimated GFR (MDRD) > 60 (>60) mL/min BUN/Creatinine Ratio 15.5 (14-18) Glucose 161 H (83-115) mg/dL POC Glucose (83-110) mg/dL Hemoglobin A1c (4.50-6.20) % Serum Osmolality (280-300) mosm/kg Lactic Acid (0.4-2.0) mmol/L Calcium 7.7 L (8.5-10.1) mg/dL Magnesium 1.5 L (1.8-2.4) mg/dl Total Bilirubin (0.2-1.0) mg/dL AST (15-37) U/L ALT (16-63) U/L Alkaline Phosphatase (46-116) U/L Troponin I (0.00-0.056) ng/mL C-Reactive Protein < 0.2 (<1.0) mg/dL NT-Pro-B Natriuret Pep (0-125) pg/mL Total Protein (6.4-8.2) g/dl Albumin (3.4-5.0) g/dl Globulin gm/dL Albumin/Globulin Ratio (1-2) Lipase (73-393) U/L Vitamin D 25-Hydroxy 45.1 (30.0-100.0) ng/ml Folate (8.6-58.9) ng/mL Urine Color (Yellow) Urine Appearance (Clear) Urine pH (5.0-8.0) Ur Specific [place] (1.005-1.030) Urine Protein (Negative) Urine Glucose (UA) (Negative) Urine Ketones (Negative) Urine Occult Blood (Negative) Urine Nitrite (Negative) Urine Bilirubin (Negative) Urine Urobilinogen (0.2-1.0) Ur Leukocyte Esterase (Negative) Urine RBC (0-5) /hpf Urine WBC (0-5) /hpf Ur Squamous Epith Cells (0-5) /hpf Amorphous Sediment (NOT SEEN) /hpf Urine Bacteria (FEW) /hpf Hyaline Casts (0-5) /lpf Urine Mucus (FEW) /hpf Ur Random Creatinine (30.0-125.0) mg/dL U Random Total Protein (0.0-11.8) mg/dL Protein/Creatinin Ratio (0-149) mg/g Urine Opiates Screen (VUXODF=999) Ur Buprenorphine Scrn (CUTOFF=10) Ur Oxycodone Screen (IIZ4ZJ=555) Urine Methadone Screen (ECU4AF=214) Ur Propoxyphene Screen (SDYULW=369) Ur Barbiturates Screen (SSZJCH=810) Ur Tricyclics Screen (DXZHCV=025) Ur Phencyclidine Scrn (CUTOFF=25) Ur Amphetamine Screen (URHLYQ=901) U Methamphetamines Scrn (COTWZS=326) U Benzodiazepines Scrn (ZQDOQY=324) U Cocaine Metab Screen (LBTROK=293) U Marijuana (THC) Screen (CUTOFF=50) Ketones (0.0-0.3) mM Med Orders - Current: Current Medications Acetaminophen (Tylenol) 650 mg PO Q4H PRN PRN Reason: Pain Last Admin: 02/19/19 13:51 Dose: 650 mg Albuterol/Ipratropium (Duoneb 3.0-0.5 Mg/3 Ml) 3 ml NEB Q4H PRN PRN Reason: Shortness Of Breath/wheezing Bisacodyl (Dulcolax) 5 mg PO DAILY PRN PRN Reason: Constipation Dextrose/Water (Dextrose 50% In Water) 50 ml IVPUSH ASDIRECTED PRN PRN Reason: Hypoglycemia Docusate Sodium (Colace) 100 mg PO BID PRN PRN Reason: Constipation Famotidine (Pepcid) 20 mg PO BID [facility] Last Admin: 02/20/19 08:47 Dose: 20 mg Hydralazine HCl (Apresoline) 20 mg IVPUSH Q4H PRN PRN Reason: Hypertension Promethazine HCl 6.25 mg/ (Sodium Chloride) 50.25 mls @ 100 mls/hr IV Q6H PRN PRN Reason: Nausea/Vomiting Lactated Ringer's (Ringers, Lactated) 1,000 mls @ 125 mls/hr IV ASDIRECTED [facility] Stop: 02/21/19 04:14 Last Admin: 02/20/19 07:03 Dose: 125 mls/hr Multivitamins/Minerals 10 ml/ (Sodium Chloride) 510 mls @ 255 mls/hr IV DAILY [facility] Stop: 02/23/19 10:59 Last Admin: 02/20/19 09:13 Dose: 255 mls/hr Vancomycin HCl 1 gm/Vancomycin HCl 250 mg/ Sodium Chloride 250 mls @ 166 mls/ hr IV Q12H [facility] Insulin Human Lispro (Humalog) 0 unit SUBCUT QIDACANDBED [facility]; Protocol Last Admin: 02/20/19 08:47 Dose: 3 units Ketorolac Tromethamine (Toradol) 15 mg IVPUSH Q6H PRN PRN Reason: Pain (moderate 4-6) Last Admin: 02/20/19 05:01 Dose: 15 mg Lorazepam (Ativan) 0.5 mg IV Q6H PRN PRN Reason: Anxiety Ondansetron HCl (Zofran) 4 mg IV Q6H PRN PRN Reason: Nausea/Vomiting Senna/Docusate Sodium (Senna Plus) 1 tab PO BID PRN PRN Reason: Constipation Thiamine HCl (Vitamin B-1) 100 mg IM DAILY [facility] Stop: 02/22/19 09:01 Last Admin: 02/20/19 09:09 Dose: 100 mg Vancomycin HCl (Pharmacy To Dose - Vancomycin) 0 dose .XX ASDIRECTED PRN PRN Reason: RX TO DOSE VANCOMYCIN Discontinued Medications Acetaminophen (Tylenol) 650 mg PO Q4H PRN PRN Reason: Pain (Mild 1-3)/fever Hydrocodone Bitart/Acetaminophen ([place] 325-5 Mg) 1 tab PO Q4H PRN PRN Reason: Pain (moderate 4-6) Enoxaparin Sodium (Lovenox) 30 mg SUBCUT DAILY [facility] Folic Acid (Folic Acid) 1 mg SUBCUT ONETIME ONE Stop: 02/19/19 20:31 Last Admin: 02/19/19 21:54 Dose: 1 mg Hydromorphone HCl (Dilaudid) 0.25 mg IVPUSH Q2H PRN PRN Reason: Pain (severe 7-10) Sodium Chloride (Normal Saline) 1,000 mls @ 500 mls/[facility] Last Admin: 02/19/19 13:00 Dose: 500 mls/hr Levofloxacin/Dextrose 750 mg/ (Premix) 150 mls @ 100 mls/hr IV ONETIME ONE Stop: 02/19/19 15:47 Last Admin: 02/19/19 15:00 Dose: 100 mls/hr Sodium Chloride (Normal Saline) 1,000 mls @ 500 mls/hr IV ASDIRECTED [facility] Last Admin: 02/19/19 15:20 Dose: 500 mls/hr Lactated Ringer's (Ringers, Lactated) 1,000 mls @ 999 mls/hr IV ONETIME ONE Stop: 02/19/19 21:04 Last Admin: 02/19/19 21:42 Dose: 999 mls/hr Thiamine HCl 100 mg/ Sodium (Chloride) 101 mls @ 202 mls/hr IV ONETIME ONE Stop: 02/19/19 20:27 Last Admin: 02/19/19 22:12 Dose: Not Given Magnesium Sulfate 2 gm/ Premix 50 mls @ 25 mls/hr IV ASDIRECTED PRN PRN Reason: Other Last Admin: 02/20/19 07:02 Dose: 25 mls/hr Vancomycin HCl 1 gm/Vancomycin HCl 250 mg/ Sodium Chloride 500 mls @ 333.333 mls/hr IV Q24H [facility] Last Admin: 02/19/19 21:56 Dose: 333.333 mls/hr Magnesium Sulfate 2 gm/ Premix 50 mls @ 25 mls/hr IV ONETIME ONE Stop: 02/20/19 09:28 Last Admin: 02/20/19 07:57 Dose: Not Given Sodium Chloride (Normal Saline) Confirm Administered Dose 500 mls @ as directed .ROUTE .STK-MED ONE Stop: 02/20/19 08:25 Last Admin: 02/20/19 08:50 Dose: Not Given Ketorolac Tromethamine (Toradol) 30 mg IV Q6H PRN PRN Reason: Pain (moderate 4-6) Metoclopramide HCl (Reglan) 10 mg IVPUSH ONETIME ONE Stop: 02/19/19 12:43 Last Admin: 02/19/19 12:58 Dose: 10 mg Nicotine (Habitrol) 21 mg TRDERM ONETIME ONE Stop: 02/19/19 18:24 Last Admin: 02/19/19 21:48 Dose: Not Given Pantoprazole Sodium (Protonix Iv) 40 mg IV ONETIME ONE Stop: 02/19/19 20:02 Last Admin: 02/19/19 21:53 Dose: 40 mg Temazepam (Restoril) 7.5 mg PO BEDTIME PRN PRN Reason: Sleep - Exam General: Alert, Oriented, Cooperative, No Acute Distress HEENT: Pupils Equal, Pupils Reactive, EOMI, Mucous Membr. Moist/[place] Neck: Supple Lungs: Clear to Auscultation, Normal Respiratory Effort Cardiovascular: Regular Rate, Regular Rhythm GI/Abdominal Exam: Normal Bowel Sounds, Soft, Non-Tender, No Organomegaly, No Distention, No Abnormal Bruit, No Mass (Male) Exam: Deferred Back Exam: Normal Inspection, Full Range of Motion Extremities: Normal Inspection, Normal Range of Motion, Non-Tender, No Pedal Edema Peripheral Pulses: 2+: Posterior Tibial (L), Posterior Tibial (R), Dorsalis Pedis (L), Dorsalis Pedis (R) Skin: Warm, Dry, Intact Neurological: No New Focal Deficit Psy/Mental Status: Alert, Normal Affect, Normal Mood - Problem List Review Problem List Initiated/Reviewed/Updated: Yes - My Orders Last 24 Hours: My Active Orders 02/19/19 18:50 PROCALCITONIN [REF] Stat 02/19/19 20:01 Height and Weight [RC] 04 Intake and Output [RC] 04,16 VTE/DVT Education [RC] 09, Vital Signs [RC] Q4HR Consult to Case Management/Vibrating Screen Operator [CONS] Routine Consult to Spiritual Care [CONS] Routine OT Evaluation and Treatment [CONS] Routine PT Evaluation and Treatment [CONS] Routine Respiratory Care Assess and Treatment [CONS] Routine CULTURE SPUTUM + SMEAR [RM] Stat Albuterol/Ipratropium [DuoNeb 3.0-0.5 MG/3 ML] 3 ml NEB Q4H PRN Bisacodyl [Dulcolax] 5 mg PO DAILY PRN Docusate Sodium [Colace] 100 mg PO BID PRN Docusate Sodium/Sennosides [Senna Plus] 1 tab PO BID PRN LORazepam [Ativan] 0.5 mg IV Q6H PRN Ondansetron [Zofran] 4 mg IV Q6H PRN Promethazine [Phenergan] 6.25 mg Sodium Chloride 0.9% [Normal Saline] 50 ml IV Q6H Resuscitation Status Routine 02/19/19 20:02 RT Aerosol Therapy [RC] ASDIRECTED 02/19/19 20:06 FECAL LACTOFERRIN [MREF] Routine 02/19/19 20:07 C DIFFICILE BY PCR W/NAP1 [MOLEC] Stat Isolation [COMM] Stat 02/19/19 20:15 Lactated Ringers [Ringers, Lactated] 1,000 ml IV ASDIRECTED Pharmacy to Dose - Vancomycin 0 dose .XX ASDIRECTED PRN 02/19/19 20:29 Ketorolac [Toradol] 15 mg IVPUSH Q6H PRN hydrALAZINE [Apresoline] 20 mg IVPUSH Q4H PRN 02/19/19 20:31 Blood Glucose Check, Bedside [RC] QIDACANDBED Dextrose 50% in Water 50 ml IVPUSH ASDIRECTED PRN 02/19/19 20:36 Antiembolic Devices [RC] 09, SCD [Sequential Compression Device] [OM.PC] Routine 02/19/19 21:00 Famotidine [Pepcid] 20 mg PO BID 02/19/19 22:00 Insulin Lispro [HumaLOG] See Protocol SUBCUT QIDACANDBED 02/19/19 22:26 RESPIRATORY PANEL Routine 02/19/19 Dinner Heart Healthy Diet [DIET] 02/20/19 07:46 EKG Documentation Completion [RC] URGENT 02/20/19 08:38 Echo Comp wo Cont [US] Routine 02/20/19 09:00 MVI, Adult with Vitamin K [Infuvite Adult] 10 ml Sodium Chloride 0.9% [Normal Saline] 500 ml IV DAILY Thiamine [Vitamin B-1] 100 mg IM DAILY Vancomycin 1 gm Vancomycin 250 mg Sodium Chloride 0.9% [Normal Saline] 250 ml IV Q12H 02/20/19 Breakfast Consistent Carbohydrate Diet [DIET] NPO [Nothing Per Oral Diet] [DIET] 02/21/19 05:11 BASIC METABOLIC PANEL,BMP [CHEM] AM C-REACTIVE PROTEIN [CHEM] AM CBC WITH AUTO DIFF [HEME] AM MAGNESIUM [CHEM] AM 02/21/19 08:30 VANCOMYCIN TROUGH [CHEM] Timed 02/22/19 05:11 BASIC METABOLIC PANEL,BMP [CHEM] AM C-REACTIVE PROTEIN [CHEM] AM CBC WITH AUTO DIFF [HEME] AM MAGNESIUM [CHEM] AM 02/23/19 05:11 BASIC METABOLIC PANEL,BMP [CHEM] AM C-REACTIVE PROTEIN [CHEM] AM CBC WITH AUTO DIFF [HEME] AM MAGNESIUM [CHEM] AM 02/24/19 05:11 BASIC METABOLIC PANEL,BMP [CHEM] AM C-REACTIVE PROTEIN [CHEM] AM CBC WITH AUTO DIFF [HEME] AM MAGNESIUM [CHEM] AM - Plan Plan:: Assessment/Plan: Acute: SIRS/Fever of Unknown Origin - Temp of 38.4C, RR of 20s-30s, LA of 2.5 - UA and CXR negative - PRN anti-pyretic and Supportive Care Probable Gastro-enteritis - Watery diarrhea with nausea, vomiting, and abdominal cramps - Stool studies, C. Diff screening, Fecal WBC and Lactoferrin - Isolation Precautions Hyperglycemia with DM2, Improved - BS of 314; now < 200s - Exercise controlled only - A1C is 8.7 - Accu-check QID with ISS Asymptomatic Sinus Bradycardia - Unclear in etiology - He is not on any ashlee blocking agents - EKG this AM shows sinus bradycardia with a HR of 52 - Low on Ca and Mg levels - 2D echo in AM - Likely has an underlying Electrolytes Abnormality - CA of 7.7 and Mg of 1.5 - Likely 2/2 Alcoholism - Replete and monitor Medical Non-Adherence to Treatment - Quit diabetic medications a bout a year ago - He mainly controls his glucose via exercise - BS is in the 300s on admission CT Scan Abnormal Findings - 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 No gallbladder wall thickening or biliary duct dilatation is seen DVT/GI Prophylaxis PT/OT consult SW/Cm for d/c planning Code status: 1 Additional orders as above Prognosis guarded-good Update girlfriend per patient's request about his diagnoses, morning labs, abdominal U/S report, pending tests as well as treatment
[2019-02-20] MEDS: Vancomycin 1 GM, Vancomycin 250 MG in Sodium Chloride 0.9% 250 ML IV SCH ×2 (10:31→21:46)
[2019-02-20] MEDS: Acetaminophen 325 MG Tab PO PRN (16:56)
--- NOTE | 2019-02-21 07:00 | CR ---
Chest: Portable view of the chest was obtained. Comparison: Prior chest x-ray of 08/02/15. Heart size is normal. Tortuous thoracic aorta is seen. Lungs are clear with no acute parenchymal change. Bony structures are grossly intact. Impression: 1. Nothing acute is appreciated on portable chest x-ray. Diagnostic code #1
[2019-02-21] MEDS: Insulin Lispro 100 Units/ML 3 ML Vial SUBCUT SCH ×4 (07:36→22:47)
[2019-02-21] MEDS: Calcium Carbonate 500 MG Tab.Chew PO SCH ×2 (09:54→20:23)
[2019-02-21] MEDS: Thiamine 200 MG/2 ML MDV IM SCH (09:55)
[2019-02-21] MEDS: MVI, Adult with Vitamin K 10 ML in Sodium Chloride 0.9% 500 ML IV SCH ×2 (09:56)
[2019-02-21] MEDS: Famotidine 20 MG Tab PO SCH ×2 (09:56→20:23)
[2019-02-21] MEDS: Vancomycin 1 GM, Vancomycin 250 MG in Sodium Chloride 0.9% 250 ML IV SCH ×2 (10:28→20:23)
[2019-02-21] MEDS ORDERED: Thiamine 200 MG/2 ML MDV IVPUSH SCH (11:23)
--- NOTE | 2019-02-21 11:34 | PCM.PN ---
- General Info Date of Service: 02/21/19 Admission Dx/Problem (Free Text): Admission Diagnosis/Problem Admission Diagnosis/Problem Bacteremia Subjective Update: Follow Up Functional Status: Reports: Pain Controlled, Tolerating Diet, Ambulating, Urinating - Review of Systems General: Denies: Fever, Chills HEENT: Reports: No Symptoms Pulmonary: Denies: Shortness of Breath Cardiovascular: Denies: Chest Pain, Dyspnea on Exertion, Lightheadedness Gastrointestinal: Denies: Abdominal Pain, Nausea, Vomiting Genitourinary: Reports: No Symptoms, Incontinence Skin: Reports: No Symptoms Neurological: Denies: Confusion, Difficulty Walking, Weakness, Gait Disturbance Psychiatric: Denies: Depression, Anxiety, Agitation, Hallucinations Systems Review Comment:: No overnight issues. He states he feels like shit and the food does not taste good. His labs were fairly unremarkable. - Patient Data Vitals - Most Recent: Last Vital Signs Temp 37.2 C 02/21/19 09:29 Pulse 51 L 02/21/19 09:29 Resp 20 02/21/19 09:29 BP 133/67 02/21/19 09:29 Pulse Ox 99 02/21/19 09:29 Orthostatic Blood Pressure [ 102/66 Standing] Orthostatic Blood Pressure [ 124/73 Sitting] Orthostatic Blood Pressure [ 134/103 Supine] Weight - Most Recent: 84.867 kg I&O - Last 24 Hours: Intake & Output 02/20/19 02/21/19 02/21/19 22:59 06:59 14:59 Intake Total 2645 550 120 Output Total 450 600 Balance 2195 -50 120 Lab Results Last 24 Hours: Laboratory Results - last 24 hr 02/20/19 02/20/19 02/20/19 Range/Units 12:06 16:44 20:48 WBC (4.23-9.07) K/mm3 RBC (4.63-6.08) M/mm3 Hgb (13.7-17.5) gm/L Hct (40.1-51.0) % MCV (79.0-92.2) fl MCH (25.7-32.2) pg MCHC (32.2-35.5) g/dl RDW Std Deviation (35.1-43.9) fL Plt Count (163-337) K/mm3 MPV (9.4-12.3) fl Neut % (Auto) (34.0-67.9) % Lymph % (Auto) (21.8-53.1) % [place] % (Auto) (5.3-12.2) % Eos % (Auto) (0.8-7.0) Baso % (Auto) (0.1-1.2) % Neut # (Auto) (1.78-5.38) K/mm3 Lymph # (Auto) (1.32-3.57) K/mm3 [place] # (Auto) (0.30-0.82) K/mm3 Eos # (Auto) (0.04-0.54) K/mm3 Baso # (Auto) (0.01-0.08) K/mm3 Sodium (136-145) mEq/L Potassium (3.5-5.1) mEq/L Chloride (98-107) mEq/L Carbon Dioxide (21-32) mEq/L Anion Gap (5-15) BUN (7-18) mg/dL Creatinine (0.7-1.3) mg/dL Est Cr Clr Drug Dosing mL/min Estimated GFR (MDRD) (>60) mL/min BUN/Creatinine Ratio (14-18) Glucose (83-115) mg/dL POC Glucose 195 H 134 H 148 H (83-110) mg/dL Calcium (8.5-10.1) mg/dL Magnesium (1.8-2.4) mg/dl C-Reactive Protein (<1.0) mg/dL Vancomycin Trough (10.0-20.0) 02/21/19 02/21/19 02/21/19 Range/Units 05:02 05:02 07:21 WBC 9.91 H (4.23-9.07) K/mm3 RBC 4.29 L (4.63-6.08) M/mm3 Hgb 12.2 L (13.7-17.5) gm/L Hct 37.2 L (40.1-51.0) % MCV 86.7 (79.0-92.2) fl MCH 28.4 (25.7-32.2) pg MCHC 32.8 (32.2-35.5) g/dl RDW Std Deviation 41.8 (35.1-43.9) fL Plt Count 119 L (163-337) K/mm3 MPV 12.9 H (9.4-12.3) fl Neut % (Auto) 76.3 H (34.0-67.9) % Lymph % (Auto) 15.2 L (21.8-53.1) % [place] % (Auto) 7.1 (5.3-12.2) % Eos % (Auto) 0.8 (0.8-7.0) Baso % (Auto) 0.2 (0.1-1.2) % Neut # (Auto) 7.56 H (1.78-5.38) K/mm3 Lymph # (Auto) 1.51 (1.32-3.57) K/mm3 [place] # (Auto) 0.70 (0.30-0.82) K/mm3 Eos # (Auto) 0.08 (0.04-0.54) K/mm3 Baso # (Auto) 0.02 (0.01-0.08) K/mm3 Sodium 135 L (136-145) mEq/L Potassium 3.5 (3.5-5.1) mEq/L Chloride 104 (98-107) mEq/L Carbon Dioxide 21 (21-32) mEq/L Anion Gap 13.5 (5-15) BUN 14 (7-18) mg/dL Creatinine 0.9 (0.7-1.3) mg/dL Est Cr Clr Drug Dosing 80.23 mL/min Estimated GFR (MDRD) > 60 (>60) mL/min BUN/Creatinine Ratio 15.6 (14-18) Glucose 128 H (83-115) mg/dL POC Glucose 123 H (83-110) mg/dL Calcium 8.1 L (8.5-10.1) mg/dL Magnesium 2.0 (1.8-2.4) mg/dl C-Reactive Protein 0.2 (<1.0) mg/dL Vancomycin Trough (10.0-20.0) 02/21/19 02/21/19 Range/Units 08:37 10:57 WBC (4.23-9.07) K/mm3 RBC (4.63-6.08) M/mm3 Hgb (13.7-17.5) gm/L Hct (40.1-51.0) % MCV (79.0-92.2) fl MCH (25.7-32.2) pg MCHC (32.2-35.5) g/dl RDW Std Deviation (35.1-43.9) fL Plt Count (163-337) K/mm3 MPV (9.4-12.3) fl Neut % (Auto) (34.0-67.9) % Lymph % (Auto) (21.8-53.1) % [place] % (Auto) (5.3-12.2) % Eos % (Auto) (0.8-7.0) Baso % (Auto) (0.1-1.2) % Neut # (Auto) (1.78-5.38) K/mm3 Lymph # (Auto) (1.32-3.57) K/mm3 [place] # (Auto) (0.30-0.82) K/mm3 Eos # (Auto) (0.04-0.54) K/mm3 Baso # (Auto) (0.01-0.08) K/mm3 Sodium (136-145) mEq/L Potassium (3.5-5.1) mEq/L Chloride (98-107) mEq/L Carbon Dioxide (21-32) mEq/L Anion Gap (5-15) BUN (7-18) mg/dL Creatinine (0.7-1.3) mg/dL Est Cr Clr Drug Dosing mL/min Estimated GFR (MDRD) (>60) mL/min BUN/Creatinine Ratio (14-18) Glucose (83-115) mg/dL POC Glucose 148 H (83-110) mg/dL Calcium (8.5-10.1) mg/dL Magnesium (1.8-2.4) mg/dl C-Reactive Protein (<1.0) mg/dL Vancomycin Trough 12.8 (10.0-20.0) [place] Results Last 24 Hours: Microbiology 02/19/19 13:04 Aerobic Blood Culture - Preliminary Blood - Venous - Lab Draw NO GROWTH AFTER 1 DAY Anaerobic Blood Culture - Preliminary NO GROWTH AFTER 1 DAY 02/19/19 12:54 Aerobic Blood Culture - Preliminary Blood - Venous NO GROWTH AFTER 1 DAY Anaerobic Blood Culture - Preliminary NO GROWTH AFTER 1 DAY Med Orders - Current: Current Medications Acetaminophen (Tylenol) 650 mg PO Q4H PRN PRN Reason: Pain Last Admin: 02/20/19 16:56 Dose: 650 mg Albuterol/Ipratropium (Duoneb 3.0-0.5 Mg/3 Ml) 3 ml NEB Q4H PRN PRN Reason: Shortness Of Breath/wheezing Bisacodyl (Dulcolax) 5 mg PO DAILY PRN PRN Reason: Constipation Calcium Carbonate/Glycine (Tums) 1,000 mg PO BID [facility] Last Admin: 02/21/19 09:54 Dose: 1,000 mg Dextrose/Water (Dextrose 50% In Water) 50 ml IVPUSH ASDIRECTED PRN PRN Reason: Hypoglycemia Docusate Sodium (Colace) 100 mg PO BID PRN PRN Reason: Constipation Famotidine (Pepcid) 20 mg PO BID [facility] Last Admin: 02/21/19 09:56 Dose: 20 mg Hydralazine HCl (Apresoline) 20 mg IVPUSH Q4H PRN PRN Reason: Hypertension Promethazine HCl 6.25 mg/ (Sodium Chloride) 50.25 mls @ 100 mls/hr IV Q6H PRN PRN Reason: Nausea/Vomiting Multivitamins/Minerals 10 ml/ (Sodium Chloride) 510 mls @ 255 mls/hr IV DAILY [facility] Stop: 02/23/19 10:59 Last Admin: 02/21/19 09:56 Dose: 255 mls/hr Vancomycin HCl 1 gm/Vancomycin HCl 250 mg/ Sodium Chloride 250 mls @ 166 mls/ hr IV Q12H [facility] Last Admin: 02/21/19 10:28 Dose: 166 mls/hr Insulin Human Lispro (Humalog) 0 unit SUBCUT QIDACANDBED [facility]; Protocol Last Admin: 02/21/19 07:36 Dose: Not Given Ketorolac Tromethamine (Toradol) 15 mg IVPUSH Q6H PRN PRN Reason: Pain (moderate 4-6) Last Admin: 02/20/19 05:01 Dose: 15 mg Lorazepam (Ativan) 0.5 mg IV Q6H PRN PRN Reason: Anxiety Ondansetron HCl (Zofran) 4 mg IV Q6H PRN PRN Reason: Nausea/Vomiting Senna/Docusate Sodium (Senna Plus) 1 tab PO BID PRN PRN Reason: Constipation Thiamine HCl (Vitamin B-1) 100 mg IVPUSH DAILY [facility] Stop: 02/22/19 09:01 Vancomycin HCl (Pharmacy To Dose - Vancomycin) 0 dose .XX ASDIRECTED PRN PRN Reason: RX TO DOSE VANCOMYCIN Discontinued Medications Acetaminophen (Tylenol) 650 mg PO Q4H PRN PRN Reason: Pain (Mild 1-3)/fever Hydrocodone Bitart/Acetaminophen ([place] 325-5 Mg) 1 tab PO Q4H PRN PRN Reason: Pain (moderate 4-6) Enoxaparin Sodium (Lovenox) 30 mg SUBCUT DAILY [facility] Folic Acid (Folic Acid) 1 mg SUBCUT ONETIME ONE Stop: 02/19/19 20:31 Last Admin: 02/19/19 21:54 Dose: 1 mg Hydromorphone HCl (Dilaudid) 0.25 mg IVPUSH Q2H PRN PRN Reason: Pain (severe 7-10) Sodium Chloride (Normal Saline) 1,000 mls @ 500 [facility]ls[facility] Last Admin: 02/19/19 13:00 Dose: 500 mls/hr Levofloxacin/Dextrose 750 mg/ (Premix) 150 mls @ 100 mls/hr IV ONETIME ONE Stop: 02/19/19 15:47 Last Admin: 02/19/19 15:00 Dose: 100 mls/hr Sodium Chloride (Normal Saline) 1,000 mls @ 500 [facility]ls[facility] Last Admin: 02/19/19 15:20 Dose: 500 mls/hr Lactated Ringer's (Ringers, Lactated) 1,000 mls @ 999 mls/hr IV ONETIME ONE Stop: 02/19/19 21:04 Last Admin: 02/19/19 21:42 Dose: 999 mls/hr Lactated Ringer's (Ringers, Lactated) 1,000 mls @ 125 mls/hr IV ASDIRECTED [facility] Stop: 02/21/19 04:14 Last Admin: 02/20/19 07:03 Dose: 125 mls/hr Thiamine HCl 100 mg/ Sodium (Chloride) 101 mls @ 202 mls/hr IV ONETIME ONE Stop: 02/19/19 20:27 Last Admin: 02/19/19 22:12 Dose: Not Given Magnesium Sulfate 2 gm/ Premix 50 mls @ 25 mls/hr IV ASDIRECTED PRN PRN Reason: Other Last Admin: 02/20/19 07:02 Dose: 25 mls/hr Vancomycin HCl 1 gm/Vancomycin HCl 250 mg/ Sodium Chloride 500 mls @ 333.333 mls/hr IV Q24H [facility] Last Admin: 02/19/19 21:56 Dose: 333.333 mls/hr Magnesium Sulfate 2 gm/ Premix 50 mls @ 25 mls/hr IV ONETIME ONE Stop: 02/20/19 09:28 Last Admin: 02/20/19 07:57 Dose: Not Given Sodium Chloride (Normal Saline) Confirm Administered Dose 500 mls @ as directed .ROUTE .STK-MED ONE Stop: 02/20/19 08:25 Last Admin: 02/20/19 08:50 Dose: Not Given Ketorolac Tromethamine (Toradol) 30 mg IV Q6H PRN PRN Reason: Pain (moderate 4-6) Metoclopramide HCl (Reglan) 10 mg IVPUSH ONETIME ONE Stop: 02/19/19 12:43 Last Admin: 02/19/19 12:58 Dose: 10 mg Nicotine (Habitrol) 21 mg TRDERM ONETIME ONE Stop: 02/19/19 18:24 Last Admin: 02/19/19 21:48 Dose: Not Given Pantoprazole Sodium (Protonix Iv) 40 mg IV ONETIME ONE Stop: 02/19/19 20:02 Last Admin: 02/19/19 21:53 Dose: 40 mg Temazepam (Restoril) 7.5 mg PO BEDTIME PRN PRN Reason: Sleep Thiamine HCl (Vitamin B-1) 100 mg IM DAILY [facility] Stop: 02/22/19 09:01 Last Admin: 02/21/19 09:55 Dose: 100 mg - Exam General: Alert, Oriented, Cooperative, No Acute Distress HEENT: Pupils Equal, Pupils Reactive, EOMI, Mucous Membr. Moist/[place] Neck: Supple Lungs: Clear to Auscultation, Normal Respiratory Effort Cardiovascular: Regular Rate, Regular Rhythm GI/Abdominal Exam: Normal Bowel Sounds, Soft, Non-Tender, No Organomegaly, No Distention, No Abnormal Bruit (Male) Exam: Deferred Back Exam: Normal Inspection, Decreased Range of Motion Extremities: Normal Inspection, Normal Range of Motion, Non-Tender, No Pedal Edema, Normal Capillary Refill Peripheral Pulses: 2+: Posterior Tibial (L), Posterior Tibial (R), Dorsalis Pedis (L), Dorsalis Pedis (R) Skin: Warm, Dry, Intact Neurological: No New Focal Deficit Psy/Mental Status: Alert, Normal Affect, Normal Mood - Problem List Review Problem List Initiated/Reviewed/Updated: Yes - My Orders Last 24 Hours: My Active Orders 02/21/19 08:38 Echo Comp wo Cont [US] Routine 02/21/19 09:00 Calcium Carbonate [Tums] 1,000 mg PO BID 02/21/19 11:23 Thiamine [Vitamin B-1] 100 mg IVPUSH DAILY 02/22/19 05:11 BASIC METABOLIC PANEL,BMP [CHEM] AM C-REACTIVE PROTEIN [CHEM] AM CBC WITH AUTO DIFF [HEME] AM MAGNESIUM [CHEM] AM 02/23/19 05:11 BASIC METABOLIC PANEL,BMP [CHEM] AM C-REACTIVE PROTEIN [CHEM] AM CBC WITH AUTO DIFF [HEME] AM MAGNESIUM [CHEM] AM 02/24/19 05:11 BASIC METABOLIC PANEL,BMP [CHEM] AM C-REACTIVE PROTEIN [CHEM] AM CBC WITH AUTO DIFF [HEME] AM MAGNESIUM [CHEM] AM - Plan Plan:: Assessment/Plan: Acute: SIRS - 2/2 Gastro-enteritis likely viral in etiology - Temp of 38.4C, RR of 20s-30s, LA of 2.5 - UA and CXR negative - PRN anti-pyretic and Supportive Care Gastro-enteritis - Watery diarrhea with nausea, vomiting, and abdominal cramps - Stool studies- pending - C. Diff screening will d/c has not had diarrhea - Fecal WBC- negative - Isolation Precautions Hyperglycemia with DM2, Stable - BS of 314; remains controlled - Exercise controlled only - A1C is 8.7 - Accu-check QID with ISS Asymptomatic Sinus Bradycardia - Unclear in etiology - He is not on any ashlee blocking agents - EKG this AM shows sinus bradycardia with a HR of 52; HR remains in the 50s - Low on Ca and Mg levels; Mg level improved - 2D echo completed with pending report - Likely has an underlying Electrolytes Abnormality - CA of 7.7--> 8.1 and Mg of 1.5--> mg of 2.0 - Likely 2/2 Alcoholism - Replete and monitor Medical Non-Adherence to Treatment - Quit diabetic medications a bout a year ago - He mainly controls his glucose via exercise - BS is in the 300s on admission CT Scan Abnormal Findings - 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 No gallbladder wall thickening or biliary duct dilatation is seen Resolved: S/p Pre-Renal Azotemia - BUN of 23 and CR of 1.6 - Serum Osm of 308; UA spec gravity of > or = 1.030 Chronic: Impaired Vision, COPD, DM2-Exercise Controlled, Hx/o NSTEMI, Chronic ETOH Use and Abdominal Aneurysm Plan: He is clinically about the same w/o worsening of symptoms Routine AM Labs Continue Folic Acid, Thiamin, MVI Okayed for him to have outside meal; he does not seem to like hospital food Viral Panel pending DVT/GI Prophylaxis PT/OT consult SW/Cm for d/c planning Code status: 1 Additional orders as above Prognosis good Updated patient about his diagnoses, morning labs, pending tests as well as treatment plan
--- NOTE | 2019-02-22 07:34 | PCM.PN ---
- General Info Date of Service: 02/22/19 Admission Dx/Problem (Free Text): Admission Diagnosis/Problem Admission Diagnosis/Problem Bacteremia - Patient Data Vitals - Most Recent: Last Vital Signs Temp 98.8 F 02/22/19 00:12 Pulse 51 L 02/22/19 00:12 Resp 12 02/22/19 00:12 BP 108/77 02/22/19 00:12 Pulse Ox 93 L 02/22/19 00:12 Orthostatic Blood Pressure [ 102/66 Standing] Orthostatic Blood Pressure [ 124/73 Sitting] Orthostatic Blood Pressure [ 134/103 Supine] Weight - Most Recent: 187 lb 1.595 oz I&O - Last 24 Hours: Intake & Output 02/21/19 02/22/19 02/22/19 22:59 06:59 14:59 Intake Total 1270 750 Output Total 700 550 Balance 570 200 Lab Results Last 24 Hours: Laboratory Results - last 24 hr 02/19/19 02/20/19 02/21/19 Range/Units 18:50 08:55 07:21 WBC (4.23-9.07) K/mm3 RBC (4.63-6.08) M/mm3 Hgb (13.7-17.5) gm/L Hct (40.1-51.0) % MCV (79.0-92.2) fl MCH (25.7-32.2) pg MCHC (32.2-35.5) g/dl RDW Std Deviation (35.1-43.9) fL Plt Count (163-337) K/mm3 MPV (9.4-12.3) fl Neut % (Auto) (34.0-67.9) % Lymph % (Auto) (21.8-53.1) % [place] % (Auto) (5.3-12.2) % Eos % (Auto) (0.8-7.0) Baso % (Auto) (0.1-1.2) % Neut # (Auto) (1.78-5.38) K/mm3 Lymph # (Auto) (1.32-3.57) K/mm3 [place] # (Auto) (0.30-0.82) K/mm3 Eos # (Auto) (0.04-0.54) K/mm3 Baso # (Auto) (0.01-0.08) K/mm3 Sodium (136-145) mEq/L Potassium (3.5-5.1) mEq/L Chloride (98-107) mEq/L Carbon Dioxide (21-32) mEq/L Anion Gap (5-15) BUN (7-18) mg/dL Creatinine (0.7-1.3) mg/dL Est Cr Clr Drug Dosing mL/min Estimated GFR (MDRD) (>60) mL/min BUN/Creatinine Ratio (14-18) Glucose (83-115) mg/dL POC Glucose 123 H (83-110) mg/dL Calcium (8.5-10.1) mg/dL Magnesium (1.8-2.4) mg/dl C-Reactive Protein (<1.0) mg/dL Procalcitonin <0.05 (<0.10) ng/mL Vancomycin Trough (10.0-20.0) Adenovirus (PCR) Not detected (Not Detected) B. pertussis DNA (PCR) Not detected (Not Detected) B.parapertussis DNA PCR Not detected (Not Detected) C. pneumoniae DNA (PCR) Not detected (Not Detected) Coronavirus (PCR) Not detected (Not Detected) Human Metapneumovir PCR Not detected (Not Detected) Influenza A (RT-PCR) Not detected (Not Detected) Influenza B (RT-PCR) Not detected (Not Detected) M. pneumoniae (PCR) Not detected (Not Detected) Parainfluen 1,2,3,4 PCR Not detected (Not Detected) RSV (PCR) Not detected (Not Detected) Entero/Rhino (PCR) Not detected (Not Detected) 02/21/19 02/21/19 02/21/19 Range/Units 08:37 10:57 22:08 WBC (4.23-9.07) K/mm3 RBC (4.63-6.08) M/mm3 Hgb (13.7-17.5) gm/L Hct (40.1-51.0) % MCV (79.0-92.2) fl MCH (25.7-32.2) pg MCHC (32.2-35.5) g/dl RDW Std Deviation (35.1-43.9) fL Plt Count (163-337) K/mm3 MPV (9.4-12.3) fl Neut % (Auto) (34.0-67.9) % Lymph % (Auto) (21.8-53.1) % [place] % (Auto) (5.3-12.2) % Eos % (Auto) (0.8-7.0) Baso % (Auto) (0.1-1.2) % Neut # (Auto) (1.78-5.38) K/mm3 Lymph # (Auto) (1.32-3.57) K/mm3 [place] # (Auto) (0.30-0.82) K/mm3 Eos # (Auto) (0.04-0.54) K/mm3 Baso # (Auto) (0.01-0.08) K/mm3 Sodium (136-145) mEq/L Potassium (3.5-5.1) mEq/L Chloride (98-107) mEq/L Carbon Dioxide (21-32) mEq/L Anion Gap (5-15) BUN (7-18) mg/dL Creatinine (0.7-1.3) mg/dL Est Cr Clr Drug Dosing mL/min Estimated GFR (MDRD) (>60) mL/min BUN/Creatinine Ratio (14-18) Glucose (83-115) mg/dL POC Glucose 148 H 117 H (83-110) mg/dL Calcium (8.5-10.1) mg/dL Magnesium (1.8-2.4) mg/dl C-Reactive Protein (<1.0) mg/dL Procalcitonin (<0.10) ng/mL Vancomycin Trough 12.8 (10.0-20.0) Adenovirus (PCR) (Not Detected) B. pertussis DNA (PCR) (Not Detected) B.parapertussis DNA PCR (Not Detected) C. pneumoniae DNA (PCR) (Not Detected) Coronavirus (PCR) (Not Detected) Human Metapneumovir PCR (Not Detected) Influenza A (RT-PCR) (Not Detected) Influenza B (RT-PCR) (Not Detected) M. pneumoniae (PCR) (Not Detected) Parainfluen 1,2,3,4 PCR (Not Detected) RSV (PCR) (Not Detected) Entero/Rhino (PCR) (Not Detected) 02/22/19 02/22/19 02/22/19 Range/Units 05:17 05:17 07:21 WBC 8.95 (4.23-9.07) K/mm3 RBC 4.48 L (4.63-6.08) M/mm3 Hgb 12.6 L (13.7-17.5) gm/L Hct 38.1 L (40.1-51.0) % MCV 85.0 (79.0-92.2) fl MCH 28.1 (25.7-32.2) pg MCHC 33.1 (32.2-35.5) g/dl RDW Std Deviation 41.0 (35.1-43.9) fL Plt Count 129 L (163-337) K/mm3 MPV 13.4 H (9.4-12.3) fl Neut % (Auto) 74.6 H (34.0-67.9) % Lymph % (Auto) 14.3 L (21.8-53.1) % [place] % (Auto) 9.4 (5.3-12.2) % Eos % (Auto) 1.2 (0.8-7.0) Baso % (Auto) 0.2 (0.1-1.2) % Neut # (Auto) 6.67 H (1.78-5.38) K/mm3 Lymph # (Auto) 1.28 L (1.32-3.57) K/mm3 [place] # (Auto) 0.84 H (0.30-0.82) K/mm3 Eos # (Auto) 0.11 (0.04-0.54) K/mm3 Baso # (Auto) 0.02 (0.01-0.08) K/mm3 Sodium 135 L (136-145) mEq/L Potassium 3.6 (3.5-5.1) mEq/L Chloride 103 (98-107) mEq/L Carbon Dioxide 22 (21-32) mEq/L Anion Gap 13.6 (5-15) BUN 13 (7-18) mg/dL Creatinine 0.9 (0.7-1.3) mg/dL Est Cr Clr Drug Dosing 80.35 mL/min Estimated GFR (MDRD) > 60 (>60) mL/min BUN/Creatinine Ratio 14.4 (14-18) Glucose 139 H (83-115) mg/dL POC Glucose 124 H (83-110) mg/dL Calcium 7.8 L (8.5-10.1) mg/dL Magnesium 1.8 (1.8-2.4) mg/dl C-Reactive Protein 0.9 (<1.0) mg/dL Procalcitonin (<0.10) ng/mL Vancomycin Trough (10.0-20.0) Adenovirus (PCR) (Not Detected) B. pertussis DNA (PCR) (Not Detected) B.parapertussis DNA PCR (Not Detected) C. pneumoniae DNA (PCR) (Not Detected) Coronavirus (PCR) (Not Detected) Human Metapneumovir PCR (Not Detected) Influenza A (RT-PCR) (Not Detected) Influenza B (RT-PCR) (Not Detected) M. pneumoniae (PCR) (Not Detected) Parainfluen 1,2,3,4 PCR (Not Detected) RSV (PCR) (Not Detected) Entero/Rhino (PCR) (Not Detected) [place] Results Last 24 Hours: Microbiology 02/21/19 17:45 Stool for WBCs - Final Stool / Feces NO WBC SEEN REFERENCE RANGE: NO WBC SEEN 02/19/19 13:04 Aerobic Blood Culture - Preliminary Blood - Venous - Lab Draw NO GROWTH AFTER 2 DAYS Anaerobic Blood Culture - Preliminary NO GROWTH AFTER 2 DAYS 02/19/19 12:54 Aerobic Blood Culture - Preliminary Blood - Venous NO GROWTH AFTER 2 DAYS Anaerobic Blood Culture - Preliminary NO GROWTH AFTER 2 DAYS Med Orders - Current: Current Medications Acetaminophen (Tylenol) 650 mg PO Q4H PRN PRN Reason: Pain Last Admin: 02/20/19 16:56 Dose: 650 mg Albuterol/Ipratropium (Duoneb 3.0-0.5 Mg/3 Ml) 3 ml NEB Q4H PRN PRN Reason: Shortness Of Breath/wheezing Bisacodyl (Dulcolax) 5 mg PO DAILY PRN PRN Reason: Constipation Calcium Carbonate/Glycine (Tums) 1,000 mg PO BID [facility] Last Admin: 02/21/19 20:23 Dose: 1,000 mg Dextrose/Water (Dextrose 50% In Water) 50 ml IVPUSH ASDIRECTED PRN PRN Reason: Hypoglycemia Docusate Sodium (Colace) 100 mg PO BID PRN PRN Reason: Constipation Famotidine (Pepcid) 20 mg PO BID [facility] Last Admin: 02/21/19 20:23 Dose: 20 mg Hydralazine HCl (Apresoline) 20 mg IVPUSH Q4H PRN PRN Reason: Hypertension Promethazine HCl 6.25 mg/ (Sodium Chloride) 50.25 mls @ 100 mls/hr IV Q6H PRN PRN Reason: Nausea/Vomiting Multivitamins/Minerals 10 ml/ (Sodium Chloride) 510 mls @ 255 mls/hr IV DAILY [facility] Stop: 02/23/19 10:59 Last Admin: 02/21/19 09:56 Dose: 255 mls/hr Vancomycin HCl 1 gm/Vancomycin HCl 250 mg/ Sodium Chloride 250 mls @ 166 mls/ hr IV Q12H [facility] Last Admin: 02/21/19 20:23 Dose: 166 mls/hr Insulin Human Lispro (Humalog) 0 unit SUBCUT QIDACANDBED [facility]; Protocol Last Admin: 02/21/19 22:47 Dose: Not Given Ketorolac Tromethamine (Toradol) 15 mg IVPUSH Q6H PRN PRN Reason: Pain (moderate 4-6) Last Admin: 02/20/19 05:01 Dose: 15 mg Lorazepam (Ativan) 0.5 mg IV Q6H PRN PRN Reason: Anxiety Ondansetron HCl (Zofran) 4 mg IV Q6H PRN PRN Reason: Nausea/Vomiting Senna/Docusate Sodium (Senna Plus) 1 tab PO BID PRN PRN Reason: Constipation Thiamine HCl (Vitamin B-1) 100 mg IVPUSH DAILY [facility] Stop: 02/22/19 09:01 Last Admin: 02/21/19 13:25 Dose: Not Given Vancomycin HCl (Pharmacy To Dose - Vancomycin) 0 dose .XX ASDIRECTED PRN PRN Reason: RX TO DOSE VANCOMYCIN Discontinued Medications Acetaminophen (Tylenol) 650 mg PO Q4H PRN PRN Reason: Pain (Mild 1-3)/fever Hydrocodone Bitart/Acetaminophen ([place] 325-5 Mg) 1 tab PO Q4H PRN PRN Reason: Pain (moderate 4-6) Enoxaparin Sodium (Lovenox) 30 mg SUBCUT DAILY [facility] Folic Acid (Folic Acid) 1 mg SUBCUT ONETIME ONE Stop: 02/19/19 20:31 Last Admin: 02/19/19 21:54 Dose: 1 mg Hydromorphone HCl (Dilaudid) 0.25 mg IVPUSH Q2H PRN PRN Reason: Pain (severe 7-10) Sodium Chloride (Normal Saline) 1,000 mls @ 500 mls/hr IV ASDIRECTED [facility] Last Admin: 02/19/19 13:00 Dose: 500 mls/hr Levofloxacin/Dextrose 750 mg/ (Premix) 150 mls @ 100 mls/hr IV ONETIME ONE Stop: 02/19/19 15:47 Last Admin: 02/19/19 15:00 Dose: 100 mls/hr Sodium Chloride (Normal Saline) 1,000 mls @ 500 mls/hr IV ASDIRECTED [facility] Last Admin: 02/19/19 15:20 Dose: 500 mls/hr Lactated Ringer's (Ringers, Lactated) 1,000 mls @ 999 mls/hr IV ONETIME ONE Stop: 02/19/19 21:04 Last Admin: 02/19/19 21:42 Dose: 999 mls/hr Lactated Ringer's (Ringers, Lactated) 1,000 mls [facility]: 02/21/19 04:14 Last Admin: 02/20/19 07:03 Dose: 125 mls/hr Thiamine HCl 100 mg/ Sodium (Chloride) 101 mls @ 202 mls/hr IV ONETIME ONE Stop: 02/19/19 20:27 Last Admin: 02/19/19 22:12 Dose: Not Given Magnesium Sulfate 2 gm/ Premix 50 mls @ 25 mls/hr IV ASDIRECTED PRN PRN Reason: Other Last Admin: 02/20/19 07:02 Dose: 25 mls/hr Vancomycin HCl 1 gm/Vancomycin HCl 250 mg/ Sodium Chloride 500 mls @ 333.333 mls/hr IV Q24H [facility] Last Admin: 02/19/19 21:56 Dose: 333.333 mls/hr Magnesium Sulfate 2 gm/ Premix 50 mls @ 25 mls/hr IV ONETIME ONE Stop: 02/20/19 09:28 Last Admin: 02/20/19 07:57 Dose: Not Given Sodium Chloride (Normal Saline) Confirm Administered Dose 500 mls @ as directed .ROUTE .STK-MED ONE Stop: 02/20/19 08:25 Last Admin: 02/20/19 08:50 Dose: Not Given Ketorolac Tromethamine (Toradol) 30 mg IV Q6H PRN PRN Reason: Pain (moderate 4-6) Metoclopramide HCl (Reglan) 10 mg IVPUSH ONETIME ONE Stop: 02/19/19 12:43 Last Admin: 02/19/19 12:58 Dose: 10 mg Nicotine (Habitrol) 21 mg TRDERM ONETIME ONE Stop: 02/19/19 18:24 Last Admin: 02/19/19 21:48 Dose: Not Given Pantoprazole Sodium (Protonix Iv) 40 mg IV ONETIME ONE Stop: 02/19/19 20:02 Last Admin: 02/19/19 21:53 Dose: 40 mg Temazepam (Restoril) 7.5 mg PO BEDTIME PRN PRN Reason: Sleep Thiamine HCl (Vitamin B-1) 100 mg IM DAILY [facility] Stop: 02/22/19 09:01 Last Admin: 02/21/19 09:55 Dose: 100 mg - Plan Plan:: Assessment/Plan: Acute: SIRS - 2/2 Gastro-enteritis likely viral in etiology - Temp of 38.4C, RR of 20s-30s, LA of 2.5 - UA and CXR negative - PRN anti-pyretic and Supportive Care Gastro-enteritis - Watery diarrhea with nausea, vomiting, and abdominal cramps - Stool studies- pending - C. Diff screening will d/c has not had diarrhea - Fecal WBC- negative - Isolation Precautions Hyperglycemia with DM2, Stable - BS of 314; remains controlled - Exercise controlled only - A1C is 8.7 - Accu-check QID with ISS Asymptomatic Sinus Bradycardia - Unclear in etiology - He is not on any ashlee blocking agents - EKG this AM shows sinus bradycardia with a HR of 52; HR remains in the 50s - Low on Ca and Mg levels; Mg level improved - 2D echo completed with pending report - Likely has an underlying Electrolytes Abnormality - CA of 7.7--> 8.1 and Mg of 1.5--> mg of 2.0 - Likely 2/2 Alcoholism - Replete and monitor Medical Non-Adherence to Treatment - Quit diabetic medications a bout a year ago - He mainly controls his glucose via exercise - BS is in the 300s on admission CT Scan Abnormal Findings - 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 No gallbladder wall thickening or biliary duct dilatation is seen Resolved: S/p Pre-Renal Azotemia - BUN of 23 and CR of 1.6 - Serum Osm of 308; UA spec gravity of > or = 1.030 Chronic: Impaired Vision, COPD, DM2-Exercise Controlled, Hx/o NSTEMI, Chronic ETOH Use and Abdominal Aneurysm Plan: He is clinically about the same w/o worsening of symptoms Routine AM Labs Continue Folic Acid, Thiamin, MVI Okayed for him to have outside meal; he does not seem to like hospital food Viral Panel pending DVT/GI Prophylaxis PT/OT consult SW/Cm for d/c planning Code status: 1 Additional orders as above Prognosis good Updated patient about his diagnoses, morning labs, pending tests as well as treatment plan
[2019-02-22] MEDS: Insulin Lispro 100 Units/ML 3 ML Vial SUBCUT SCH (07:46)
[2019-02-22] MEDS: Vancomycin 1 GM, Vancomycin 250 MG in Sodium Chloride 0.9% 250 ML IV SCH (08:49)
[2019-02-22] MEDS: Famotidine 20 MG Tab PO SCH (08:53)
[2019-02-22] MEDS: Calcium Carbonate 500 MG Tab.Chew PO SCH (08:53)
--- NOTE | 2019-02-22 09:54 | PCM.DCSUM1 ---
Discharge Summary - Hospital Course HPI Initial Comments: This is a 73 yo unpleasant elderly white male with past medical hx/o Impaired Vision, COPD, DM2-Exercise Controlled, Hx/o NSTEMI, Chronic ETOH Use and Abdominal Aneurysm who presents to ED with complaints of 10 day hx/o flu likes symptoms. He reports having watery diarrhea, associated with abdominal cramps, nausea, vomiting, productive cough, fever, chills, headaches, reduced appetite, malaise and generalized weakness. He denies any recent travel outside the country, no unusual diet or drinks, and no recent antibiotic use. He had a similar episode in the past wherein he was diagnosed with bacteremia from pneumonia. He admits to drinking alcohol routinely with drafts and crown coke on Tuesdays and Fridays. He also admits to smoking cigarettes about a pack a day. He denies any illicit drug use. However he is concerns about possible food poisoning. His initial work up in ED shows a fairly unremarkable CBC. His Chemistry is significant for AG of 15.3, BUN of 23, Cr of 1.6, BS of 314, A1C of 8.70, Serum Osm of 308, LA of 2.5, ProBNP of 219, and Albumin of 3.3. His UA and UDS are negative. His chest x-ray and abdominal CT scan both show nothing acute. Patient comes in primarily for SIRS/FUO from Probable Gastroenteritis. Diagnosis: Stroke: No - Discharge Data Discharge Date: 02/22/19 (Admit date: 02/19/19) Discharge Disposition: Home, Self-Care 01 Condition: Good - Discharge Diagnosis/Problem(s) (1) Intractable nausea and vomiting SNOMED Code(s): 539855033 ICD Code: R11.2 - NAUSEA WITH VOMITING, UNSPECIFIED Status: Resolved Priority: High Current Visit: Yes Qualifiers: Vomiting type: unspecified Qualified Code(s): R11.2 - Nausea with vomiting , unspecified (2) Viral gastroenteritis SNOMED Code(s): 935247856 ICD Code: A08.4 - VIRAL INTESTINAL INFECTION, UNSPECIFIED Status: Acute Priority: High Current Visit: Yes (3) Uncontrolled type 2 diabetes mellitus SNOMED Code(s): 294116597, 549372360 ICD Code: E11.65 - TYPE 2 DIABETES MELLITUS WITH HYPERGLYCEMIA Status: Chronic Priority: Medium Current Visit: Yes Qualifiers: Glycemic state: with hyperglycemia Qualified Code(s): E11.65 - Type 2 diabetes mellitus with hyperglycemia - Patient Summary/Data Consults: Consultations 02/19/19 20:01 Consult to Case Management/Camera Prototyping Engineer [CONS] Routine Consult to Spiritual Care [CONS] Routine OT Evaluation and Treatment [CONS] Routine PT Evaluation and Treatment [CONS] Routine Respiratory Care Assess and Treatment [CONS] Routine Labs Pending at D/C: Shiga toxin pending Recommended Follow-up Testing/Procedures: Recommend follow-up with PCP within 5-7 days of discharge. May benefit from a surgical consult regarding layering gallstones within the gallbladder. Hospital Course: Assessment/Plan: Acute: SIRS/Fever of Unknown Origin - Temp of 38.4C, RR of 20s-30s, LA of 2.5 - UA and CXR negative - PRN anti-pyretic and Supportive Care S/P Probable Gastro-enteritis, resolved - Watery diarrhea with nausea, vomiting, and abdominal cramps - Stool studies, C. Diff screening, Fecal WBC - all negative - Isolation Precautions Hyperglycemia with DM2 - BS of 314 - Exercise controlled only - A1C is 8.7 - Accu-check QID with ISS S/P Pre-Renal Azotemia - BUN of 23-->16 and CR of 1.6-->0.6 - Serum Osm of 308; UA spec gravity of > or = 1.030 Medical Non-Adherence to Treatment - Quit diabetic medications a bout a year ago - He mainly controls his glucose via exercise - BS is in the 300s on admission CT Scan Abnormal Findings - Aneurysm of the abdominal aorta and left common iliac artery - Cysts within both Kidneys - Questionable non-obstructing gallstones within the gallbladder Chronic: Impaired Vision, COPD, DM2-Exercise Controlled, Hx/o NSTEMI, Chronic ETOH Use and Abdominal Aneurysm Plan: Admit to [facility] with Tele Resume Home Meds Routine AM Labs Sepsis work up Folic Acid, Thiamin, MVI IV Hydration Viral Panel Abdominal U/S in AM DVT/GI Prophylaxis PT/OT consult SW/Cm for d/c planning Code status: 1 Additional orders as above Prognosis guarded-good Tonio was admitted for probable gastroenteritis. Overall infectious workup was negative and his diarrhea with nausea vomiting and abdominal cramping did resolve. He was clearly dehydrated when he presented and was given IV fluids which she responded well. he did not like the food here and did obtain some Rodriguez's which she was able to stomach without incident. His blood sugar was noted to be somewhat elevated and this was discussed with the patient. It was relayed to him that he may benefit from starting antidiabetic medication and this should be discussed with his primary care provider. Reports he quit diabetic medications about a year ago and that he is controlling his diabetes with exercise. CT scan of the abdomen did show an abdominal aortic aneurysm. He was also noted to have cysts within both kidneys and questionable gallstones. This should be followed by his primary care provider and he may benefit from a surgical consult regarding his gallstones outpatient. Abdominal ultrasound was obtained and interpreted by Dr. Quigley as "1. Multiple small layering gallstones within the gallbladder. This correlates to questionable finding that was seen on previous CT exam. 2. No gallbladder wall thickening or biliary duct dilation is seen. 3. 2 renal cysts. 4. Partially visualized abdominal aortic aneurysm." Echo was obtained and showed "1. Left ventricular ejection fraction, by visual estimation, is 60-65%. 2. Normal pattern of LV diastolic filling. 3. Normal right ventricular systolic function. 4. Aortic valve is structurally normal and tricuspid. 5. No evidence of mitral valve regurgitation. 6. No tricuspid valve regurgitation. 7. No regional wall motion abnormalities." He was given 3 bags of multivitamin/NS fluid. He was started on vancomycin on admission over concerns of possible SIRS, however with his infectious workup being negative and him not having any fevers while this was discontinued. He did report that he felt very good today and was ready for discharge. He did work with PT and OT and no concerns were noted. No new medications were prescribed. He was instructed to establish with a primary care provider and follow up within 5-7 days of discharge. His primary care provider should monitor his CT scan and abdominal ultrasound findings as above. He was instructed to return to the emergency room should symptoms return or worsen. He was discharged today. - Patient Instructions Diet: Heart Healthy Diet, Diabetic Diet Activity: As Tolerated Notify Provider of: Fever, Increased Pain, Nausea and/or Vomiting Other/Special Instructions: Follow-up with primary care provider within 5-7 days of discharge, sooner if needed. Stay hydrated and drink plenty of fluid. We discussed your diabetes and how your A1C is elevated. You may follow-up with your primary care provider regarding this. You indicated that your diabetes has been regulated by diet and exercise. We recommend you check your blood sugars at least twice a day and record these in a journal, bringing them with to all medical appointments. We discussed your smoking status. You were provided contact numbers for smoking cessation. Should you decide you want nicotine patches, gum, etc contact these numbers or follow-up with your primary care provider. Your infectious workup here was completely normal. This shows that you do not have an active bacterial infection, therefore antibiotics are not indicated. Should symptoms return or worsen contact your primary care provider , a walk in clinic, or return to the Emergency Room. - Discharge Plan *PRESCRIPTION DRUG MONITORING PROGRAM REVIEWED*: Not Applicable *COPY OF PRESCRIPTION DRUG MONITORING REPORT IN PATIENT SOL: Not Applicable Home Medications: Home Meds . [No Known Home Meds] 07/31/15 [History] Patient Handouts: Diarrhea, Adult, [id number], Steps to Quit Smoking, Fever, Adult, [id number] Referrals: Paulie French PA-C [Physician Fourchette Sewer] - 03/02/19 10:30 am - Discharge Summary/Plan Comment DC Time >30 min.: Yes (45 mins ) - General Info Date of Service: 02/22/19 Functional Status: Reports: Pain Controlled, Tolerating Diet, Ambulating, Urinating. Denies: New Symptoms - Review of Systems General: Reports: No Symptoms. Denies: Fever, Weakness, Fatigue, Malaise, Chills HEENT: Reports: No Symptoms. Denies: Headaches, Sore Throat Pulmonary: Reports: No Symptoms. Denies: Shortness of Breath, Cough, Sputum, Wheezing Cardiovascular: Reports: No Symptoms. Denies: Chest Pain, Palpitations, Edema Gastrointestinal: Reports: No Symptoms. Denies: Abdominal Pain, Constipation, Diarrhea, Nausea, Vomiting Genitourinary: Reports: No Symptoms. Denies: Pain Musculoskeletal: Reports: No Symptoms Skin: Reports: No Symptoms. Denies: Cyanosis Neurological: Reports: No Symptoms. Denies: Confusion Psychiatric: Reports: No Symptoms - Patient Data Vitals - Most Recent: Last Vital Signs Temp 98.1 F 02/22/19 08:42 Pulse 50 L 02/22/19 08:42 Resp 22 H 02/22/19 08:42 BP 132/87 02/22/19 08:42 Pulse Ox 97 02/22/19 08:42 Orthostatic Blood Pressure [ 102/66 Standing] Orthostatic Blood Pressure [ 124/73 Sitting] Orthostatic Blood Pressure [ 134/103 Supine] Weight - Most Recent: 187 lb 1.595 oz I&O - Last 24 hours: Intake & Output 02/21/19 02/22/19 02/22/19 22:59 06:59 14:59 Intake Total 1270 750 Output Total 700 550 Balance 570 200 Lab Results - Last 24 hrs: Laboratory Results - last 24 hr 02/19/19 02/20/19 02/21/19 Range/Units 18:50 08:55 07:21 WBC (4.23-9.07) K/mm3 RBC (4.63-6.08) M/mm3 Hgb (13.7-17.5) gm/L Hct (40.1-51.0) % MCV (79.0-92.2) fl MCH (25.7-32.2) pg MCHC (32.2-35.5) g/dl RDW Std Deviation (35.1-43.9) fL Plt Count (163-337) K/mm3 MPV (9.4-12.3) fl Neut % (Auto) (34.0-67.9) % Lymph % (Auto) (21.8-53.1) % [place] % (Auto) (5.3-12.2) % Eos % (Auto) (0.8-7.0) Baso % (Auto) (0.1-1.2) % Neut # (Auto) (1.78-5.38) K/mm3 Lymph # (Auto) (1.32-3.57) K/mm3 [place] # (Auto) (0.30-0.82) K/mm3 Eos # (Auto) (0.04-0.54) K/mm3 Baso # (Auto) (0.01-0.08) K/mm3 Sodium (136-145) mEq/L Potassium (3.5-5.1) mEq/L Chloride (98-107) mEq/L Carbon Dioxide (21-32) mEq/L Anion Gap (5-15) BUN (7-18) mg/dL Creatinine (0.7-1.3) mg/dL Est Cr Clr Drug Dosing mL/min Estimated GFR (MDRD) (>60) mL/min BUN/Creatinine Ratio (14-18) Glucose (83-115) mg/dL POC Glucose 123 H (83-110) mg/dL Calcium (8.5-10.1) mg/dL Magnesium (1.8-2.4) mg/dl C-Reactive Protein (<1.0) mg/dL Procalcitonin <0.05 (<0.10) ng/mL Adenovirus (PCR) Not detected (Not Detected) B. pertussis DNA (PCR) Not detected (Not Detected) B.parapertussis DNA PCR Not detected (Not Detected) C. pneumoniae DNA (PCR) Not detected (Not Detected) Coronavirus (PCR) Not detected (Not Detected) Human Metapneumovir PCR Not detected (Not Detected) Influenza A (RT-PCR) Not detected (Not Detected) Influenza B (RT-PCR) Not detected (Not Detected) M. pneumoniae (PCR) Not detected (Not Detected) Parainfluen 1,2,3,4 PCR Not detected (Not Detected) RSV (PCR) Not detected (Not Detected) Entero/Rhino (PCR) Not detected (Not Detected) 02/21/19 02/21/19 02/22/19 Range/Units 10:57 22:08 05:17 WBC 8.95 (4.23-9.07) K/mm3 RBC 4.48 L (4.63-6.08) M/mm3 Hgb 12.6 L (13.7-17.5) gm/L Hct 38.1 L (40.1-51.0) % MCV 85.0 (79.0-92.2) fl MCH 28.1 (25.7-32.2) pg MCHC 33.1 (32.2-35.5) g/dl RDW Std Deviation 41.0 (35.1-43.9) fL Plt Count 129 L (163-337) K/mm3 MPV 13.4 H (9.4-12.3) fl Neut % (Auto) 74.6 H (34.0-67.9) % Lymph % (Auto) 14.3 L (21.8-53.1) % [place] % (Auto) 9.4 (5.3-12.2) % Eos % (Auto) 1.2 (0.8-7.0) Baso % (Auto) 0.2 (0.1-1.2) % Neut # (Auto) 6.67 H (1.78-5.38) K/mm3 Lymph # (Auto) 1.28 L (1.32-3.57) K/mm3 [place] # (Auto) 0.84 H (0.30-0.82) K/mm3 Eos # (Auto) 0.11 (0.04-0.54) K/mm3 Baso # (Auto) 0.02 (0.01-0.08) K/mm3 Sodium (136-145) mEq/L Potassium (3.5-5.1) mEq/L Chloride (98-107) mEq/L Carbon Dioxide (21-32) mEq/L Anion Gap (5-15) BUN (7-18) mg/dL Creatinine (0.7-1.3) mg/dL Est Cr Clr Drug Dosing mL/min Estimated GFR (MDRD) (>60) mL/min BUN/Creatinine Ratio (14-18) Glucose (83-115) mg/dL POC Glucose 148 H 117 H (83-110) mg/dL Calcium (8.5-10.1) mg/dL Magnesium (1.8-2.4) mg/dl C-Reactive Protein (<1.0) mg/dL Procalcitonin (<0.10) ng/mL Adenovirus (PCR) (Not Detected) B. pertussis DNA (PCR) (Not Detected) B.parapertussis DNA PCR (Not Detected) C. pneumoniae DNA (PCR) (Not Detected) Coronavirus (PCR) (Not Detected) Human Metapneumovir PCR (Not Detected) Influenza A (RT-PCR) (Not Detected) Influenza B (RT-PCR) (Not Detected) M. pneumoniae (PCR) (Not Detected) Parainfluen 1,2,3,4 PCR (Not Detected) RSV (PCR) (Not Detected) Entero/Rhino (PCR) (Not Detected) 02/22/19 02/22/19 Range/Units 05:17 07:21 WBC (4.23-9.07) K/mm3 RBC (4.63-6.08) M/mm3 Hgb (13.7-17.5) gm/L Hct (40.1-51.0) % MCV (79.0-92.2) fl MCH (25.7-32.2) pg MCHC (32.2-35.5) g/dl RDW Std Deviation (35.1-43.9) fL Plt Count (163-337) K/mm3 MPV (9.4-12.3) fl Neut % (Auto) (34.0-67.9) % Lymph % (Auto) (21.8-53.1) % [place] % (Auto) (5.3-12.2) % Eos % (Auto) (0.8-7.0) Baso % (Auto) (0.1-1.2) % Neut # (Auto) (1.78-5.38) K/mm3 Lymph # (Auto) (1.32-3.57) K/mm3 [place] # (Auto) (0.30-0.82) K/mm3 Eos # (Auto) (0.04-0.54) K/mm3 Baso # (Auto) (0.01-0.08) K/mm3 Sodium 135 L (136-145) mEq/L Potassium 3.6 (3.5-5.1) mEq/L Chloride 103 (98-107) mEq/L Carbon Dioxide 22 (21-32) mEq/L Anion Gap 13.6 (5-15) BUN 13 (7-18) mg/dL Creatinine 0.9 (0.7-1.3) mg/dL Est Cr Clr Drug Dosing 80.35 mL/min Estimated GFR (MDRD) > 60 (>60) mL/min BUN/Creatinine Ratio 14.4 (14-18) Glucose 139 H (83-115) mg/dL POC Glucose 124 H (83-110) mg/dL Calcium 7.8 L (8.5-10.1) mg/dL Magnesium 1.8 (1.8-2.4) mg/dl C-Reactive Protein 0.9 (<1.0) mg/dL Procalcitonin (<0.10) ng/mL Adenovirus (PCR) (Not Detected) B. pertussis DNA (PCR) (Not Detected) B.parapertussis DNA PCR (Not Detected) C. pneumoniae DNA (PCR) (Not Detected) Coronavirus (PCR) (Not Detected) Human Metapneumovir PCR (Not Detected) Influenza A (RT-PCR) (Not Detected) Influenza B (RT-PCR) (Not Detected) M. pneumoniae (PCR) (Not Detected) Parainfluen 1,2,3,4 PCR (Not Detected) RSV (PCR) (Not Detected) Entero/Rhino (PCR) (Not Detected) TOBIAS Results - Last 24 hrs: Microbiology 02/21/19 17:45 Stool Culture - Preliminary Stool / Feces 02/21/19 17:45 Stool for WBCs - Final Stool / Feces NO WBC SEEN REFERENCE RANGE: NO WBC SEEN 02/19/19 13:04 Aerobic Blood Culture - Preliminary Blood - Venous - Lab Draw NO GROWTH AFTER 2 DAYS Anaerobic Blood Culture - Preliminary NO GROWTH AFTER 2 DAYS 02/19/19 12:54 Aerobic Blood Culture - Preliminary Blood - Venous NO GROWTH AFTER 2 DAYS Anaerobic Blood Culture - Preliminary NO GROWTH AFTER 2 DAYS Med Orders - Current: Current Medications Acetaminophen (Tylenol) 650 mg PO Q4H PRN PRN Reason: Pain Last Admin: 02/20/19 16:56 Dose: 650 mg Albuterol/Ipratropium (Duoneb 3.0-0.5 Mg/3 Ml) 3 ml NEB Q4H PRN PRN Reason: Shortness Of Breath/wheezing Bisacodyl (Dulcolax) 5 mg PO DAILY PRN PRN Reason: Constipation Calcium Carbonate/Glycine (Tums) 1,000 mg PO BID [facility] Last Admin: 02/22/19 08:53 Dose: 1,000 mg Dextrose/Water (Dextrose 50% In Water) 50 ml IVPUSH ASDIRECTED PRN PRN Reason: Hypoglycemia Docusate Sodium (Colace) 100 mg PO BID PRN PRN Reason: Constipation Famotidine (Pepcid) 20 mg PO BID [facility] Last Admin: 02/22/19 08:53 Dose: 20 mg Hydralazine HCl (Apresoline) 20 mg IVPUSH Q4H PRN PRN Reason: Hypertension Promethazine HCl 6.25 mg/ (Sodium Chloride) 50.25 mls @ 100 mls/hr IV Q6H PRN PRN Reason: Nausea/Vomiting Multivitamins/Minerals 10 ml/ (Sodium Chloride) 510 mls @ 255 mls/hr IV DAILY [facility] Stop: 02/23/19 10:59 Last Admin: 02/21/19 09:56 Dose: 255 mls/hr Vancomycin HCl 1 gm/Vancomycin HCl 250 mg/ Sodium Chloride 250 mls @ 166 mls/ hr IV Q12H [facility] Last Admin: 02/22/19 08:49 Dose: 166 mls/hr Insulin Human Lispro (Humalog) 0 unit SUBCUT QIDACANDBED [facility]; Protocol Last Admin: 02/22/19 07:46 Dose: Not Given Ketorolac Tromethamine (Toradol) 15 mg IVPUSH Q6H PRN PRN Reason: Pain (moderate 4-6) Last Admin: 02/20/19 05:01 Dose: 15 mg Lorazepam (Ativan) 0.5 mg IV Q6H PRN PRN Reason: Anxiety Ondansetron HCl (Zofran) 4 mg IV Q6H PRN PRN Reason: Nausea/Vomiting Senna/Docusate Sodium (Senna Plus) 1 tab PO BID PRN PRN Reason: Constipation Vancomycin HCl (Pharmacy To Dose - Vancomycin) 0 dose .XX ASDIRECTED PRN PRN Reason: RX TO DOSE VANCOMYCIN Discontinued Medications Acetaminophen (Tylenol) 650 mg PO Q4H PRN PRN Reason: Pain (Mild 1-3)/fever Hydrocodone Bitart/Acetaminophen ([place] 325-5 Mg) 1 tab PO Q4H PRN PRN Reason: Pain (moderate 4-6) Enoxaparin Sodium (Lovenox) 30 mg SUBCUT DAILY [facility] Folic Acid (Folic Acid) 1 mg SUBCUT ONETIME ONE Stop: 02/19/19 20:31 Last Admin: 02/19/19 21:54 Dose: 1 mg Hydromorphone HCl (Dilaudid) 0.25 mg IVPUSH Q2H PRN PRN Reason: Pain (severe 7-10) Sodium Chloride (Normal Saline) 1,000 mls @ 500 mls/hr IV ASDIRECTED [facility] Last Admin: 02/19/19 13:00 Dose: 500 mls/hr Levofloxacin/Dextrose 750 mg/ (Premix) 150 mls @ 100 mls/hr IV ONETIME ONE Stop: 02/19/19 15:47 Last Admin: 02/19/19 15:00 Dose: 100 mls/hr Sodium Chloride (Normal Saline) 1,000 mls @ 500 [facility] Last Admin: 02/19/19 15:20 Dose: 500 mls/hr Lactated Ringer's (Ringers, Lactated) 1,000 mls @ 999 mls/hr IV ONETIME ONE Stop: 02/19/19 21:04 Last Admin: 02/19/19 21:42 Dose: 999 mls/hr Lactated Ringer's (Ringers, Lactated) 1,000 mls @ 125 mls/hr IV ASDIRECTED [facility] Stop: 02/21/19 04:14 Last Admin: 02/20/19 07:03 Dose: 125 mls/hr Thiamine HCl 100 mg/ Sodium (Chloride) 101 mls @ 202 mls/hr IV ONETIME ONE Stop: 02/19/19 20:27 Last Admin: 02/19/19 22:12 Dose: Not Given Magnesium Sulfate 2 gm/ Premix 50 mls @ 25 mls/hr IV ASDIRECTED PRN PRN Reason: Other Last Admin: 02/20/19 07:02 Dose: 25 mls/hr Vancomycin HCl 1 gm/Vancomycin HCl 250 mg/ Sodium Chloride 500 mls @ 333.333 mls/hr IV Q24H [facility] Last Admin: 02/19/19 21:56 Dose: 333.333 mls/hr Magnesium Sulfate 2 gm/ Premix 50 mls @ 25 mls/hr IV ONETIME ONE Stop: 02/20/19 09:28 Last Admin: 02/20/19 07:57 Dose: Not Given Sodium Chloride (Normal Saline) Confirm Administered Dose 500 mls @ as directed .ROUTE .STK-MED ONE Stop: 02/20/19 08:25 Last Admin: 02/20/19 08:50 Dose: Not Given Ketorolac Tromethamine (Toradol) 30 mg IV Q6H PRN PRN Reason: Pain (moderate 4-6) Metoclopramide HCl (Reglan) 10 mg IVPUSH ONETIME ONE Stop: 02/19/19 12:43 Last Admin: 02/19/19 12:58 Dose: 10 mg Nicotine (Habitrol) 21 mg TRDERM ONETIME ONE Stop: 02/19/19 18:24 Last Admin: 02/19/19 21:48 Dose: Not Given Pantoprazole Sodium (Protonix Iv) 40 mg IV ONETIME ONE Stop: 02/19/19 20:02 Last Admin: 02/19/19 21:53 Dose: 40 mg Temazepam (Restoril) 7.5 mg PO BEDTIME PRN PRN Reason: Sleep Thiamine HCl (Vitamin B-1) 100 mg IM DAILY [facility] Stop: 02/22/19 09:01 Last Admin: 02/21/19 09:55 Dose: 100 mg Thiamine HCl (Vitamin B-1) 100 mg IVPUSH DAILY [facility] Stop: 02/22/19 09:01 Last Admin: 02/21/19 13:25 Dose: Not Given - Exam Quality Assessment: Reports: DVT Prophylaxis General: Reports: Alert, Oriented, Cooperative, No Acute Distress HEENT: Reports: Pupils Equal, Pupils Reactive, EOMI, Mucous Membr. Moist/[place] Neck: Reports: Supple, Trachea Midline Lungs: Reports: Clear to Auscultation, Normal Respiratory Effort Cardiovascular: Reports: Regular Rate, Regular Rhythm GI/Abdominal Exam: Normal Bowel Sounds, Soft, Non-Tender, No Organomegaly, No Distention (Male) Exam: Deferred Rectal (Males) Exam: Deferred Back Exam: Reports: Normal Inspection, Full Range of Motion Extremities: Normal Inspection, Normal Range of Motion, Non-Tender, No Pedal Edema, Normal Capillary Refill Skin: Reports: Warm, Dry, Intact Neurological: Reports: No New Focal Deficit Psy/Mental Status: Reports: Alert, Normal Affect, Normal Mood
[2019-02-22] MEDS: MVI, Adult with Vitamin K 10 ML in Sodium Chloride 0.9% 500 ML IV SCH ×2 (10:39)
[2019-02-22 12:27] VITALS: BP 141/70
== END 2019-02-22 13:10 | disposition home or self-care (01) | DRG 392 ==
LOC: JD.ED 12:11 → JD.MS 17:29
PROVIDERS: ADMIT Internal Medicine; ATTEND Internal Medicine
DX: R50.9 Fever, unspecified (principal); R11.2 Nausea with vomiting, unspecified; A08.4 Viral intestinal infection, unspecified; F17.210 Nicotine dependence, cigarettes, uncomplicated; H54.7 Unspecified visual loss; F41.9 Anxiety disorder, unspecified; F32.9 Major depressive disorder, single episode, unspecified; E87.2 Acidosis; E11.40 Type 2 diabetes mellitus with diabetic neuropathy, unspecified; I71.4 Abdominal aortic aneurysm, without rupture; K21.9 Gastro-esophageal reflux disease without esophagitis; H26.9 Unspecified cataract; H91.90 Unspecified hearing loss, unspecified ear; R00.1 Bradycardia, unspecified; E11.65 Type 2 diabetes mellitus with hyperglycemia; N18.3 Chronic kidney disease, stage 3 (moderate); E11.22 Type 2 diabetes mellitus with diabetic chronic kidney disease; J43.1 Panlobular emphysema; E86.0 Dehydration; Z91.19 Patient's noncompliance with other medical treatment and regimen; I25.2 Old myocardial infarction
CPT/HCPCS: 36415; 71045; 74176; 80053; 80306; 81001; 82009; 82570; 82962; 83036; 83605; 83690; 83735; 83880; 83930; 84156; 84484; 85007; 85027; 85610; 85652; 86140; 87040 ×2; 93005; 96361; 96365; 96366; 96375; 99285; A9270; J1956; J2765; J7040 ×2; 76705; 76705-26; 80048; 80202; 82306; 82746; 84145; 85025; 87046; 87486; 87581; 87632; 87798; 89055; 93010; 93306; 97161-GP; 97165-GO; 99222; 99232; 99239; C9113; J1815-GY; J1885; J3370; J3411; J3475; J7050; J7120

== ENCOUNTER 2020-10-16 08:30 | Day surgery (SDC) | payer MEDICARE, SELFPAY ==
[2020-10-16] MEDS: Polymyxin B/Trimethoprim 10 ML Bottle EYELF SCH ×4 (09:20→10:49)
[2020-10-16 09:23] VITALS: PULSE 58
[2020-10-16] MEDS: Brimonidine 0.2% Ophth Soln 5 ML Bottle EYELF SCH ×4 (09:25→10:49)
[2020-10-16] MEDS: Phenylephrine 2.5% Ophth Soln 2 ML Bot EYELF SCH ×6 (09:30→10:25)
[2020-10-16] MEDS: Tetracaine HCl/PF 0.5% 4 ML Bottle EYEBOTH SCH ×5 (09:31→10:32)
[2020-10-16] MEDS: Cefuroxime 10 MG/ML SYRINGE EYELF SCH ×2 (09:32→10:48)
[2020-10-16] MEDS: Lidocaine 1% PF 2 ML SDV INJECT SCH ×2 (09:32→10:33)
[2020-10-16] MEDS: Pilocarpine 4% Ophth Soln 15 ML Bot EYELF SCH ×2 (09:33→10:49)
[2020-10-16] MEDS: Tropicamide 1% Ophth Soln 15 ML Bottle EYELF SCH ×4 (09:35→10:10)
--- NOTE | 2020-10-16 10:04 | PCM.PREANE ---
Preanesthetic Assessment - Procedure Proposed Procedure: left eye cataract extraction - Anesthesia/Transfusion/Family Hx Anesthesia History: No Prior Anesthesia Family History of Anesthesia Reaction: No Transfusion History: No Prior Transfusion(s) - Review of Systems General: No Symptoms Pulmonary: Other (Smoker 1 ppd) Cardiovascular: No Symptoms Gastrointestinal: No Symptoms Neurological: No Symptoms Other: Reports: Diabetes (History of DM, hospitalized in 2015 diagnosis. Does not tolerate insulin or oral medications. Stopped taking all medications and is trying to control with diet modifications. Blood glucose today is 336 mg/dl. Dr. Park is aware and wishes to proceed today. ) - Physical Assessment NPO Status Date: 10/15/20 NPO Status Time: 17:30 Vital Signs: Last Vital Signs Temp 36.5 C 10/16/20 09:15 Pulse 58 L 10/16/20 09:15 Resp 16 10/16/20 09:15 BP 132/79 10/16/20 09:15 Pulse Ox 96 10/16/20 09:15 Height: 1.83 m Weight: 81.647 kg ASA Class: 3 Mental Status: Alert & Oriented x3 Airway Class: Mallampati = 2 Dentition: Reports: Caries (Worn) Thyro-Mental Finger Breadths: 3 Mouth Opening Finger Breadths: 3 ROM/Head Extension: Full Lungs: Clear to Auscultation, Normal Respiratory Effort Cardiovascular: Regular Rate, Regular Rhythm - Lab Values: Laboratory Last Values POC Glucose 339 mg/dL (70-99) H 10/16/20 09:47 - Allergies Allergies/Adverse Reactions: Allergies Allergy/AdvReac Type Severity Reaction Status Date / Time No Known Allergies Allergy Verified 10/15/20 14:31 - Acknowledgements Anesthesia Type Planned: MAC Pt an Appropriate Candidate for the Planned Anesthesia: Yes Alternatives and Risks of Anesthesia Discussed w Pt/Guardian: Yes Pt/Guardian Understands and Agrees with Anesthesia Plan: Yes PreAnesthesia Questionnaire - Past Health History Medical/Surgical History: Denies Medical/Surgical History HEENT History: Reports: Cataract, Hard of Hearing, Impaired Vision Other HEENT History: wears eyeglasses, catarct in L eye Cardiovascular History: Reports: Aneurysm, [place], Other (See Below) Other Cardiovascular History: 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 Musculoskeletal History: Reports: Fracture Neurological History: Reports: Neuropathy, Diabetic Psychiatric History: Reports: Addiction, Anxiety, Depression, Other (See Below) Other Psychiatric History: tobacco Endocrine/Metabolic History: Reports: Diabetes, Type II - Infectious Disease History Infectious Disease History: Reports: Chicken Pox, Measles, Mumps - HOME MEDS Home Medications: Home Meds . [No Known Home Meds] 07/31/15 [History] - CURRENT (IN HOUSE) MEDS Current Meds: Current Medications Brimonidine Tartrate (Brimonidine 0.2% Ophth Soln 5 Ml Bottle) 0 ml EYELF ASDIRECTED DESTINY Stop: 10/16/20 18:00 Last Admin: 10/16/20 09:33 Dose: 1 ml Documented by: Cefuroxime Sodium (Cefuroxime 10 Mg/Ml Syringe) 0 mg EYELF ASDIRECTED DESTINY Stop: 10/16/20 18:00 Last Admin: 10/16/20 09:32 Dose: 1 mg Documented by: Lidocaine HCl (Lidocaine 1% Pf 2 Ml Sdv) 0 ml INJECT ASDIRECTED DESTINY Stop: 10/16/20 18:00 Last Admin: 10/16/20 09:32 Dose: 1 ml Documented by: Phenylephrine HCl (Phenylephrine 2.5% Ophth Soln 2 Ml Bot) 0 ml EYELF ASDIRECTED DESTINY Stop: 10/16/20 18:00 Last Admin: 10/16/20 09:50 Dose: 1 drop Documented by: Pilocarpine HCl (Pilocarpine 4% Ophth Soln 15 Ml Bot) 0 ml EYELF ASDIRECTED DESTINY Stop: 10/17/20 18:00 Last Admin: 10/16/20 09:33 Dose: 1 ml Documented by: Polymyxin/Trimethoprim Sulfate (Polymyxin B/Trimethoprim 10 Ml Bottle) 0 ml EYELF ASDIRECTED DESTINY Stop: 10/16/20 18:00 Last Admin: 10/16/20 10:00 Dose: 1 drop Documented by: Tetracaine HCl (Tetracaine Hcl/Pf 0.5% 4 Ml Bottle) 0 ml EYEBOTH ASDIRECTED DESTINY Stop: 10/16/20 18:00 Last Admin: 10/16/20 09:31 Dose: 1 ml Documented by: Tropicamide (Tropicamide 1% Ophth Soln 15 Ml Bottle) 0 ml EYELF ASDIRECTED DESTINY Stop: 10/16/20 18:00 Last Admin: 10/16/20 09:55 Dose: 1 drop Documented by:
--- NOTE | 2020-10-16 10:52 | PCM48HPAN ---
Post Anesthesia Note - EVALUATION WITHIN 48HRS OF ANESTHETIC Vital Signs in Normal Range: Yes Patient Participated in Evaluation: Yes Respiratory Function Stable: Yes Airway Patent: Yes Cardiovascular Function Stable: Yes Hydration Status Stable: Yes Pain Control Satisfactory: Yes Nausea and Vomiting Control Satisfactory: Yes Mental Status Recovered: Yes Vital Signs: Last Vital Signs Temp 36.5 C 10/16/20 09:15 Pulse 58 L 10/16/20 09:15 Resp 16 10/16/20 09:15 BP 132/79 10/16/20 09:15 Pulse Ox 96 10/16/20 09:15
[2020-10-16 12:04] VITALS: BP 115/71
== END 2020-10-16 11:00 | disposition home or self-care (01) ==
LOC: JD.SDS 08:30
PROVIDERS: ATTEND Ophthalmology
DX: E11.36 Type 2 diabetes mellitus with diabetic cataract (principal); H25.813 Combined forms of age-related cataract, bilateral; H21.81 Floppy iris syndrome; H21.42 Pupillary membranes, left eye; F17.210 Nicotine dependence, cigarettes, uncomplicated; I25.2 Old myocardial infarction; J44.9 Chronic obstructive pulmonary disease, unspecified; K21.9 Gastro-esophageal reflux disease without esophagitis; E11.40 Type 2 diabetes mellitus with diabetic neuropathy, unspecified; Z79.899 Other long term (current) drug therapy
CPT/HCPCS: 66982; 82947; J0697; V2632

== ENCOUNTER 2020-11-13 07:37 | Day surgery (SDC) | payer MEDICARE ==
--- NOTE | 2020-11-13 07:59 | PCM.PREANE ---
Preanesthetic Assessment - Anesthesia/Transfusion/Family Hx Anesthesia History: No Prior Anesthesia Family History of Anesthesia Reaction: No Transfusion History: No Prior Transfusion(s) - Review of Systems General: No Symptoms Pulmonary: Other (last smoked this am) Cardiovascular: No Symptoms Gastrointestinal: No Symptoms Neurological: No Symptoms Other: Reports: Diabetes (no meds) - Physical Assessment NPO Status Date: 11/13/20 NPO Status Time: 06:00 (with creamer) Height: 1.83 m Weight: 83.915 kg ASA Class: 2 Mental Status: Alert & Oriented x3 Airway Class: Mallampati = 2 Dentition: Reports: Normal Dentition, Dentures Thyro-Mental Finger Breadths: 3 Mouth Opening Finger Breadths: 3 ROM/Head Extension: Full Lungs: Clear to Auscultation, Normal Respiratory Effort Cardiovascular: Regular Rate, Regular Rhythm - Allergies Allergies/Adverse Reactions: Allergies Allergy/AdvReac Type Severity Reaction Status Date / Time No Known Allergies Allergy Verified 11/09/20 10:20 - Blood Blood Available: Yes - Anesthesia Plan Pre-Op Medication Ordered: None - Acknowledgements Anesthesia Type Planned: MAC Pt an Appropriate Candidate for the Planned Anesthesia: Yes Alternatives and Risks of Anesthesia Discussed w Pt/Guardian: Yes Pt/Guardian Understands and Agrees with Anesthesia Plan: Yes PreAnesthesia Questionnaire - Past Health History Medical/Surgical History: Denies Medical/Surgical History HEENT History: Reports: Cataract, Hard of Hearing, Impaired Vision Other HEENT History: wears eyeglasses, catarct in L eye Cardiovascular History: Reports: Aneurysm, [place], Other (See Below) Other Cardiovascular History: 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 Musculoskeletal History: Reports: Fracture Neurological History: Reports: Neuropathy, Diabetic Psychiatric History: Reports: Addiction, Anxiety, Depression, Other (See Below) Other Psychiatric History: tobacco Endocrine/Metabolic History: Reports: Diabetes, Type II - Infectious Disease History Infectious Disease History: Reports: Chicken Pox, Measles, Mumps - HOME MEDS Home Medications: Home Meds . [No Known Home Meds] 07/31/15 [History] - CURRENT (IN HOUSE) MEDS Current Meds: Current Medications Brimonidine Tartrate (Brimonidine 0.2% Ophth Soln 5 Ml Bottle) 0 ml EYERT ASDIRECTED DESTINY Stop: 11/13/20 18:00 Cefuroxime Sodium (Cefuroxime 10 Mg/Ml Syringe) 0 mg EYERT ASDIRECTED DESTINY Stop: 11/13/20 18:00 Lidocaine HCl (Lidocaine 1% Pf 2 Ml Sdv) 0 ml INJECT ASDIRECTED DESTINY Stop: 11/13/20 18:00 Phenylephrine HCl (Phenylephrine 2.5% Ophth Soln 2 Ml Bot) 0 ml EYERT ASDIRECTED DESTINY Stop: 11/13/20 18:00 Pilocarpine HCl (Pilocarpine 4% Ophth Soln 15 Ml Bot) 0 ml EYERT ASDIRECTED DESTINY Stop: 11/13/20 18:00 Polymyxin/Trimethoprim Sulfate (Polymyxin B/Trimethoprim 10 Ml Bottle) 0 ml EYERT ASDIRECTED DESTINY Stop: 11/13/20 18:00 Tetracaine HCl (Tetracaine Hcl/Pf 0.5% 4 Ml Bottle) 0 ml EYEBOTH ASDIRECTED DESTINY Stop: 11/13/20 18:00 Tropicamide (Tropicamide 1% Ophth Soln 15 Ml Bottle) 0 ml EYERT ASDIRECTED DESTINY Stop: 11/13/20 18:00
[2020-11-13] MEDS: Phenylephrine 2.5% Ophth Soln 2 ML Bot EYERT SCH ×6 (08:01→08:50)
[2020-11-13] MEDS: Lidocaine 1% PF 2 ML SDV INJECT SCH ×2 (08:02→08:59)
[2020-11-13] MEDS: Tetracaine HCl/PF 0.5% 4 ML Bottle EYEBOTH SCH ×3 (08:02→08:58)
[2020-11-13] MEDS: Cefuroxime 10 MG/ML SYRINGE EYERT SCH ×2 (08:02→09:11)
[2020-11-13] MEDS: Brimonidine 0.2% Ophth Soln 5 ML Bottle EYERT SCH ×4 (08:03→09:12)
[2020-11-13] MEDS: Polymyxin B/Trimethoprim 10 ML Bottle EYERT SCH ×4 (08:03→09:12)
[2020-11-13] MEDS: Pilocarpine 4% Ophth Soln 15 ML Bot EYERT SCH ×2 (08:03→09:12)
[2020-11-13] MEDS: Tropicamide 1% Ophth Soln 15 ML Bottle EYERT SCH ×4 (08:20→08:44)
--- NOTE | 2020-11-13 09:13 | PCM48HPAN ---
Post Anesthesia Note - EVALUATION WITHIN 48HRS OF ANESTHETIC Vital Signs in Normal Range: Yes Patient Participated in Evaluation: Yes Respiratory Function Stable: Yes Airway Patent: Yes Cardiovascular Function Stable: Yes Hydration Status Stable: Yes Pain Control Satisfactory: Yes Nausea and Vomiting Control Satisfactory: Yes Mental Status Recovered: Yes
[2020-11-13 09:27] VITALS: BP 125/88; PULSE 57
== END 2020-11-13 09:20 | disposition home or self-care (01) ==
LOC: JD.SDS 07:37
PROVIDERS: ATTEND Ophthalmology
DX: E11.36 Type 2 diabetes mellitus with diabetic cataract (principal); H25.811 Combined forms of age-related cataract, right eye; H21.81 Floppy iris syndrome; H21.41 Pupillary membranes, right eye; F17.210 Nicotine dependence, cigarettes, uncomplicated; Z96.1 Presence of intraocular lens
CPT/HCPCS: 66982; J0697; V2632